=== PATIENT | female | born 1950 | race Caucasian/White ===

== ENCOUNTER → 2016-11-20 | Outpatient (CLI) | payer OTHER ==
[~2016-11-20] MED LIST: ACET-1256 PO; ACET-24 PO; BLAC160C PO; CALC500C70 PO; CITA10TA4 PO; CLR10 PO; CMD5 PO; ECHI1CAP11 PO; FLAX12003 PO; GOLD500C3 PO; HYDR25TA4 PO; LEVO75TA5 PO; LPR25 PO; MULT-506 PO; MULT1CAP52 PO; OMEG10007 PO; ONDA8TAB6 PO; PRLSR20 PO; RXC5 PO
== END | disposition home or self-care (01) ==
LOC: C.LABMFLN 07:58
PROVIDERS: ATTEND Family Medicine
DX: J20.9 Acute bronchitis, unspecified (principal)

== ENCOUNTER → 2016-12-18 | Outpatient (CLI) | payer OTHER ==
[2016-12-18 13:17] LABS: BASO % 0.2 %; BASO ABS # 0.01 K/uL (0-0.2); COMPLETE YES; EOS % 1.9 %; HEMATOCRIT 41.4 % (37-47); LYMPH % 31.9 %; LYMPH ABS # 1.32 K/uL (1.2-3.4); MEAN CELL VOLUME 97.4 fL (80-100); MEAN CORPUSCULAR HEMOGLOBIN 34.4 pg (25-34); MEAN CORPUSCULAR HGB CONC 35.3 g/dl (32-36); MEAN PLATELET VOLUME 10.1 fL (7.4-10.4); PLATELET COUNT 277 K/uL (130-400); RED BLOOD COUNT 4.25 M/uL (4.2-5.4); WHITE BLOOD COUNT 4.14 K/uL (4.8-10.8)
[2016-12-18 15:31] LABS: ALT/SGPT 18 U/L (12-78); AST/SGOT 13 U/L (15-37); BLOOD UREA NITROGEN 13 mg/dl (7-18); CALCIUM 9.4 mg/dl (8.5-10.1); CARBON DIOXIDE 31 mmol/L (21-32); CHLORIDE 100 mmol/L (98-107); CHOLESTEROL 190 mg/dl (0-200); CREATININE 0.67 mg/dl (0.60-1.20); GLUCOSE 86 mg/dl (70-99); POTASSIUM 3.7 mmol/L (3.5-5.1); SODIUM 139 mmol/L (136-145)
[2016-12-18 15:39] LABS: ALKALINE PHOSPHATASE 71 U/L (45-117); CHOLESTEROL/HDL RATIO 3.2; HDL CHOLESTEROL 60 mg/dl; LDL CHOLESTEROL CALCULATED 106 mg/dl; THYROID STIMULATING HORMONE 0.048 uIu/ml (0.300-4.500); TRIGLYCERIDES 118 mg/dl (0-150); VERY LOW DENSITY LIPOPROT CALC 24 mg/dl
== END | disposition home or self-care (01) ==
LOC: C.LABMFLN 10:43
PROVIDERS: ATTEND Family Medicine
DX: I10 Essential (primary) hypertension (principal); E03.9 Hypothyroidism, unspecified

== ENCOUNTER → 2017-02-12 | Outpatient (CLI) | payer OTHER ==
[2017-02-12 13:49] LABS: THYROID STIMULATING HORMONE 0.096 uIu/ml (0.300-4.500)
== END | disposition home or self-care (01) ==
LOC: C.LABMFLN 10:49
PROVIDERS: ATTEND Family Medicine
DX: E03.9 Hypothyroidism, unspecified (principal)

== ENCOUNTER → 2017-04-09 | Outpatient (CLI) | payer OTHER ==
[~2017-04-09] MED LIST changes: +FLAX100024 PO; +METO25TA56 PO; +OXYC-57 PO; +WARF2.5T8 PO; +WARF5TAB7 PO
[2017-04-09 13:51] LABS: THYROID STIMULATING HORMONE 0.731 uIu/ml (0.300-4.500)
== END | disposition home or self-care (01) ==
LOC: C.LABMFLN 14:07
PROVIDERS: ATTEND Family Medicine
DX: E03.9 Hypothyroidism, unspecified (principal)

== ENCOUNTER 2017-04-26 09:07 | Observation (INO) | payer OTHER ==
[~2017-04-26] VITALS: Ht 157.5 cm; Wt 80.9 kg
[~2017-04-26 09:07] MED LIST changes: -ACET-24 PO; -CMD5 PO; -FLAX100024 PO; -LPR25 PO; -METO25TA56 PO; -ONDA8TAB6 PO; -OXYC-57 PO; -RXC5 PO; -WARF2.5T8 PO; -WARF5TAB7 PO
[2017-04-26 09:51] LABS: BASO % 0.5 %; BASO ABS # 0.02 K/uL (0-0.2); COMPLETE YES; EOS % 2.7 %; HEMATOCRIT 40.1 % (37-47); LYMPH % 39.2 %; LYMPH ABS # 1.57 K/uL (1.2-3.4); MEAN CORPUSCULAR HEMOGLOBIN 34.2 pg (25-34); MEAN CORPUSCULAR HGB CONC 34.9 g/dl (32-36); MEAN PLATELET VOLUME 9.3 fL (7.4-10.4); MONO % 10.5 %; NEUT % 47.1 %; PLATELET COUNT 289 K/uL (130-400); RED BLOOD COUNT 4.09 M/uL (4.2-5.4); WHITE BLOOD COUNT 4.01 K/uL (4.8-10.8)
[2017-04-26 09:59] LABS: BUN/CREATININE RATIO 15.1 (10-20); CALCIUM 8.8 mg/dl (8.5-10.1); CREATININE 0.62 mg/dl (0.60-1.20); POTASSIUM 3.8 mmol/L (3.5-5.1)
[2017-04-26 10:02] LABS: ALB/GLOB RATIO 1.1 (0.9-2)
[2017-04-26] MEDS ORDERED: METOPROLOL TARTRATE 1 MG/ML VIAL IV STA (10:06)
--- NOTE | 2017-04-26 10:15 | EMERGENCY ROOM VISIT NOTE ---
History Report prepared by Nik: Erika Sands Under the Supervision of: Dr. Neno Scott M.D. First contact with patient: 09:58 Chief Complaint: CARDIAC ASSESSMENT Nursing Triage Summary: pt arrives from the OR. Pt was here to have a right shoulder surgery. Pt had preop EKG which showed sinus rhythm. Today, pt with no chest pain or symptoms, but the EKG showing Afib with RVR. Previous EKGs on the chart. Report received from Ana DE LA CRUZ. History of Present Illness The patient is a 67 year old female who presents to the Emergency Room with complaints of the sudden need for a cardiac assessment that began prior to arrival. The patient reports that she was preparing for a right shoulder replacement this morning when she had an EKG done. She reports that she noticed some slight palpitations, but denies any current palpitations. The patient notes that she was found to have an irregular heart rate and was sent to the emergency department for further work up. She denies any history of atrial fibrillation. The patient denies any fever, diaphoresis, shortness of breath, chest pain, nausea, vomiting, abdominal pain, or leg pain. She reports normal bowel movements and urination. The patient states that she stopped taking her Hydrochlorothiazide and Citalopram prior to her surgery, but states that she still took her Synthroid and Omeprazole today. She states that she took her calcium supplement and vitamins yesterday. The patient denies any recent new medications. She reports that she had a normal stress test last week. Source of History: patient Onset: prior to arrival Position: other (heart) Quality: other (cardiac assessment ) Timing: other (sudden) Associated Symptoms: No fevers, No diaphoresis, No chest pain, No SOB, No nausea, No vomiting, No abdominal pain, No urinary symptoms Review of Systems All systems have been listed, reviewed, and are negative other than those previously mentioned. Please see Additional Medical History Sheet. Past Medical & Surgical Medical Problems: (1) Arthritis (2) New onset atrial fibrillation (3) Sleep apnea Family History Cancer Heart disease Hypertension Social History Smoking Status: Former Smoker Smokeless Tobacco Use: No Alcohol Use: occasionally Marital Status: Housing Status: lives with significant other Occupation Status: retired Current/Historical Medications Scheduled Acetaminophen (Tylenol), 2 TAB PO Q6 Black Cohosh (Cimicifuga Racem (Black Cohosh), 1 CAP PO BID Calcium/Vitamin D (Os-Addison 500 Plus D), 1 TAB PO BID Citalopram Hydrobromide (Citalopram Hydrobromide), 5 MG PO HS Echinacea (Pa Echinacea 500 mg), 1 CAP PO BID Fish Oil ([place]-3), 1 CAP PO QAM Flaxseed (Linseed) (Flaxseed Oil), 1 CAP PO HS Goldenseal (Hydrastis Canadens (Coon Seal), 1 CAP PO BID Hydrochlorothiazide (Hctz), 25 MG PO QAM Levothyroxine Sodium (Levothyroxine Sodium), 1 TAB PO DAILYBB Loratadine (Claritin), 10 MG PO QAM Multiple Vitamins W/ Minerals (Hair/Skin/Nails), 1 CAP PO BID Multivitamin (Multivitamin), 1 TAB PO QAM Omeprazole (Prilosec), 20 MG PO DAILYBB Allergies Coded Allergies: Albuterol (Verified Allergy, Unknown, HIVES, 04/26/17) Azithromycin (Verified Allergy, Unknown, HIVES, 04/26/17) Cefuroxime (Verified Allergy, Unknown, HIVES, 04/26/17) Cephalexin (Verified Allergy, Unknown, HIVES, 04/26/17) Clarithromycin (Verified Allergy, Unknown, HIVES, 04/26/17) Oxaprozin (Verified Allergy, Unknown, HIVES, 04/26/17) Prednisone (Verified Allergy, Unknown, HIVES, 04/26/17) Sulfamethoxazole w/Trimethoprim (Verified Allergy, Unknown, HIVES, 04/26/17) Trovafloxacin (Verified Allergy, Unknown, HIVES, 04/26/17) Physical Exam Vital Signs Date Time Temp Pulse Resp B/P (MAP) Pulse Ox O2 Delivery O2 Flow Rate FiO2 04/26/17 13:09 65 16 120/80 95 Room Air 04/26/17 12:39 103 04/26/17 12:39 68 04/26/17 12:20 113 16 105/88 96 Room Air 04/26/17 11:07 123 16 123/97 97 Room Air 04/26/17 10:51 130 16 130/105 95 Room Air 04/26/17 10:35 118 16 127/89 97 Room Air 04/26/17 10:20 141 137/112 04/26/17 10:18 141 16 137/112 97 Room Air 04/26/17 09:54 147 04/26/17 09:17 135 04/26/17 09:13 36.7 139 19 148/106 95 Room Air 04/26/17 09:13 95 Room Air 04/26/17 09:13 95 Room Air Physical Exam GENERAL: Patient awake, alert, oriented x 3. Patient follows commands. Patient does not appear toxic. Patient is adequately hydrated and well- nourished. SKIN: No erythema, pallor, cyanosis or rash HEENT: Normal head, pupils equal, reactive to light and accommodation. Oral cavity and posterior pharynx appear normal. Neck: Without adenopathy, no neck vein distention. LUNGS: Clear to auscultation. No wheezes, no rales, no rhonchi. HEART: Rapid, irregularly irregular rate. ABDOMEN: No masses, no rebound, no hepatomegaly or splenomegaly. EXTREMITIES: No signs of trauma. No pedal or pretibial edema. No calf or thigh tenderness. NEUROLOGIC: Cranial nerves II-XII within normal limits. No gross motor sensory function deficits. Medical Decision & Procedures ER Provider Diagnostic Interpretation: X ray results are stated below per my interpretation and the radiologist's interpretation. SINGLE VIEW CHEST CLINICAL HISTORY: Atrial fibrillation. FINDINGS: An AP, portable, upright chest radiograph is compared to study dated 04/06/2017. The examination is degraded by portable technique and patient rotation. The heart is top normal for projection. The mediastinal contour is within normal limits. The pulmonary vasculature is noncongested. Chronic interstitial thickening is similar to previous. No airspace consolidation, large pleural effusion, or pneumothorax is seen. The skeletal structures are osteopenic. The bony thorax is grossly intact. IMPRESSION: No acute cardiopulmonary abnormality. Electronically signed by: Dionte Paz M.D. 04/26/2017 10:19 AM Dictated Date/Time: 04/26/2017 10:18 AM Laboratory Results 04/26/17 09:23 Red Blood Count 4.09, Mean Corpuscular Volume 98.0, Mean Corpuscular Hemoglobin 34.2, Mean Corpuscular Hemoglobin Concent 34.9, Mean Platelet Volume 9.3, Neutrophils (%) (Auto) 47.1, Lymphocytes (%) (Auto) 39.2, Monocytes (%) (Auto) 10.5, Eosinophils (%) (Auto) 2.7, Basophils (%) (Auto) 0.5, Neutrophils # (Auto ) 1.89, Lymphocytes # (Auto) 1.57, Monocytes # (Auto) 0.42, Eosinophils # (Auto ) 0.11, Basophils # (Auto) 0.02 04/26/17 09:23 Test 04/26/17 09:23 White Blood Count 4.01 K/uL (4.8-10.8) Red Blood Count 4.09 M/uL (4.2-5.4) Hemoglobin 14.0 g/dL (12.0-16.0) Hematocrit 40.1 % (37-47) Mean Corpuscular Volume 98.0 fL (80-100) Mean Corpuscular Hemoglobin 34.2 pg (25-34) Mean Corpuscular Hemoglobin Concent 34.9 g/dl (32-36) Platelet Count 289 K/uL (130-400) Mean Platelet Volume 9.3 fL (7.4-10.4) Neutrophils (%) (Auto) 47.1 % Lymphocytes (%) (Auto) 39.2 % Monocytes (%) (Auto) 10.5 % Eosinophils (%) (Auto) 2.7 % Basophils (%) (Auto) 0.5 % Neutrophils # (Auto) 1.89 K/uL (1.4-6.5) Lymphocytes # (Auto) 1.57 K/uL (1.2-3.4) Monocytes # (Auto) 0.42 K/uL (0.11-0.59) Eosinophils # (Auto) 0.11 K/uL (0-0.5) Basophils # (Auto) 0.02 K/uL (0-0.2) RDW Standard Deviation 45.4 fL (36.4-46.3) RDW Coefficient of Variation 12.6 % (11.5-14.5) Immature Granulocyte % (Auto) 0.0 % Immature Granulocyte # (Auto) 0.00 K/uL (0.00-0.02) Prothrombin Time 10.4 SECONDS (9.0-12.0) Prothromb Time International Ratio 1.0 (0.9-1.1) Activated Partial Thromboplast Time 27.0 SECONDS (21.0-31.0) Partial Thromboplastin Ratio 1.0 Anion Gap 8.0 mmol/L (3-11) Est Creatinine Clear Calc Drug Dose 88.0 ml/min Estimated GFR () 108.1 Estimated GFR (Non- 93.3 BUN/Creatinine Ratio 15.1 (10-20) Calcium Level 8.8 mg/dl (8.5-10.1) Magnesium Level 2.2 mg/dl (1.8-2.4) Total Bilirubin 0.9 mg/dl (0.2-1) Aspartate Amino Transf (AST/SGOT) 14 U/L (15-37) Alanine Aminotransferase (ALT/SGPT) 19 U/L (12-78) Alkaline Phosphatase 71 U/L (45-117) Troponin I < 0.015 ng/ml (0-0.045) Total Protein 6.9 gm/dl (6.4-8.2) Albumin 3.6 gm/dl (3.4-5.0) Globulin 3.3 gm/dl (2.5-4.0) Albumin/Globulin Ratio 1.1 (0.9-2) Thyroid Stimulating Hormone (TSH) 1.040 uIu/ml (0.300-4.500) Laboratory results as stated above per my review. Medications Administered Medications (Trade) Dose Ordered Sig/Ben Route Start Time Stop Time Status Last Admin Dose Admin Metoprolol Tartrate (Lopressor Iv) 15 mg NOW STAT IV 04/26/17 10:06 04/26/17 10:08 DC 04/26/17 10:20 5 MG Metoprolol Tartrate (Lopressor Tab) 50 mg NOW STAT PO 04/26/17 11:14 04/26/17 11:16 DC 04/26/17 11:20 50 MG Potassium Chloride (Klor-Con M10) 20 meq NOW STAT PO 04/26/17 12:42 04/26/17 12:54 DC 04/26/17 13:06 20 MEQ ECG Indication: palpitations Rate (beats per minute): 147 Rhythm: atrial fibrillation Findings: nonspecific-ST abn, other (normal axis) ED Course 0959: Past medical records reviewed. The patient was evaluated in room A2. A complete history and physical examination was performed. 1006: Ordered Lopressor IV 15 mg IV. 1114: Per nursing staff, the patients heart rate still has not converted. Ordered Lopressor Tab 50 mg PO. 1141: I reevaluated the patient and she is resting comfortably. I discussed the exam findings with her and I discussed the treatment plan. She verbalized complete understanding and agreement. She will be evaluated for further treatment. 1143: I discussed the patients case with SHU Barrientos. He is going to evaluate the patient for further treatment. 1249: Per nursing staff the patient has converted and her heart rate is 66 beats per minute. 1257: I reevaluated the patient and her heart rate has converted to normal sinus with a rate of 66 beats per minute. Awaiting consult from SHU Barrientos to talk about any possible changes. Medical Decision Nurses notes reviewed. Medical history sheet reviewed. Differential diagnosis includes but is not limited to: atrial fibrillation with RVR, PVC, PAC, metabolic disorder. Medication Reconciliation: I attest that I have personally reviewed the patient' s current medication list. Blood Pressure Screening: Patient was found to have an elevated blood pressure but her blood pressure came down after treatment of the atrial fibrillation. The patient arrived here from preop with atrial fibrillation. She denies having this problem before. The patient was given 3 doses of IV metoprolol followed by 1 dose of oral metoprolol. The patient's labs were all evaluated. Please see above. The patient did eventually convert to a normal sinus rhythm. The case was discussed with the hospitalist. I also discussed care with the patient and with her . Consults Time Called: 1116 Consulting Physician: SHU Barrientos Returned Call: 1143 I discussed the patients case with SHU Barrientos. He is going to evaluate the patient for further treatment. Impression Primary Impression: Atrial fibrillation with rapid ventricular response Critical Care I have personally spent greater than 35 minutes of critical care time in the direct management of this patient. This includes bedside care, interpretation of diagnostic studies, and testing, discussion with consultants, patient, and family members, and other required patient management activities. This 35 minutes is in excess of all separately billable procedures. Scribe Attestation The scribe's documentation has been prepared under my direction and personally reviewed by me in its entirety. I confirm that the note above accurately reflects all work, treatment, procedures, and medical decision making performed by me. Departure Information Dispostion Being Evaluated By Hospitalist Referrals Omayra Lane M.D. (PCP)
--- NOTE | 2017-04-26 10:21 | DIAGNOSTIC IMAGING REPORT ---
SINGLE VIEW CHEST CLINICAL HISTORY: Atrial fibrillation. FINDINGS: An AP, portable, upright chest radiograph is compared to study dated 04/06/2017. The examination is degraded by portable technique and patient rotation. The heart is top normal for projection. The mediastinal contour is within normal limits. The pulmonary vasculature is noncongested. Chronic interstitial thickening is similar to previous. No airspace consolidation, large pleural effusion, or pneumothorax is seen. The skeletal structures are osteopenic. The bony thorax is grossly intact. IMPRESSION: No acute cardiopulmonary abnormality. Electronically signed by: Dionte Paz M.D. 04/26/2017 10:19 AM Dictated Date/Time: 04/26/2017 10:18 AM
[2017-04-26 10:24] LABS: PROTHROMBIN TIME (PATIENT) 10.4 SECONDS (9.0-12.0)
[2017-04-26] MEDS ORDERED: METOPROLOL TARTRATE 50 MG TAB PO STA (11:14)
[2017-04-26] MEDS ORDERED: ZOLPIDEM TARTRATE 5 MG TAB PO PRN (12:30)
[2017-04-26] MEDS ORDERED: NITROGLYCERIN 0.4 MG SL PER TAB CHARGE SL PRN (12:30)
[2017-04-26] MEDS ORDERED: POTASSIUM CHLORIDE 10 MEQ TABCR PO STA (12:42)
[2017-04-26] MEDS ORDERED: METOPROLOL TARTRATE 1 MG/ML VIAL IV PRN (12:45)
[2017-04-26 13:45] VITALS: BP 115/79; PULSE 65; TEMP 36.6; O2SAT 98; Ht 157.5 cm; Wt 80.9 kg
[2017-04-26] MEDS ORDERED: IV FLUIDS COMPLETED PRN (13:45)
[2017-04-26] MEDS: ACETAMINOPHEN 325 MG TAB PO PRN ×2 (15:31→23:25)
[2017-04-26 15:33] VITALS: BP 132/90; PULSE 63; TEMP 36.8; O2SAT 98
[2017-04-26 16:00] VITALS: O2SAT 98
--- NOTE | 2017-04-26 16:05 | CARDIOLOGY CONSULTATION ---
DATE OF CONSULTATION: 04/26/2017 DATE OF CONSULTATION: 04/26/2017. REFERRING PHYSICIAN: Austin Peck. CHIEF COMPLAINT: Atrial fibrillation. HISTORY OF PRESENT ILLNESS: Mrs. Chandni Porter is a s 67-year-old woman without a known cardiac history who presented today for a right should shoulder surgery and was discovered to have a rapid heart rate. An EKG was obtained, she was noted to have rapid atrial fibrillation. She was admitted to the hospital for treatment. The patient states in general, she has been feeling quite well. During her initial evaluation this morning, she did go to the bathroom and feel a very slight tachycardia, but this resolved quite clinically when she returned for the remainder of her intake examination. She otherwise has not noticed a sense of rapid heartbeat or palpitation. She denies significant chest pressure or discomfort. She has not noticed any change in her breathing pattern. She denies significant dyspnea. She has no lightheadedness, dizziness or other symptoms associated with the arrhythmia. In general, she is an active individual who is limited to some degree by orthopedic disease. She is able to ambulate and perform routine activity without significant limitation such as breathing difficulty or chest pain. Once again, she denies frequency symptoms of dizziness or lightheadedness. She has no sense of palpitations. She has not reported any undue fatigue recently. The patient did undergo exercise echocardiography in the recent past for preoperative evaluation. She was able to go 6 minutes on a standard treadmill test and did report some difficulty with running due to her footwear at the time, but denied significant limiting dyspnea. She states that occasionally when playing with her grandchildren she will have mild shortness of breath. She denies significant orthopnea or paroxysmal nocturnal dyspnea. PAST MEDICAL HISTORY: Significant for: 1. Orthopedic disease. 2. Allergic rhinitis. 3. Gastroesophageal reflux disease. 4. Hypertension. 5. Hypothyroidism. 6. Reported sleep apnea which may in fact have been narcolepsy. PAST SURGICAL HISTORY: Includes back surgery x4 and a knee arthroscopy. OUTPATIENT MEDICATIONS: Included calcium, citalopram, fexofenadine on a p.r.n. basis, hydrochlorothiazide and omeprazole. MEDICAL ALLERGIES: INCLUDE ALBUTEROL, AZITHROMYCIN, CEFUROXIME, CEPHALEXIN, CLARITHROMYCIN, OXAPROZIN, PREDNISONE, SULFAMETHIZOLE WITH TRIMETHOPRIM, DAYPRO AND TROVAN. FAMILY HISTORY: Family history is not significant for premature coronary disease. SOCIAL HISTORY: The patient currently lives with her . She has a very remote history of a very light tobacco use. She denies significant alcohol abuse. REVIEW OF SYSTEMS: A complete review of systems was performed and the pertinent positives are noted in the history of present illness, the remainder being negative. PHYSICAL EXAMINATION: GENERAL: The patient does not appear in acute distress. She was alert and oriented. Mood and affect appeared normal. She answered all questions appropriately. VITAL SIGNS: Include blood pressure 120/80 with pulse of 65. HEAD, EYES, EARS, NOSE, AND THROAT: Her sclerae are anicteric. Pupils are equal, reactive to light and accommodation. Extraocular movements were intact. Palpation of submandibular region did not reveal any significant lymphadenopathy. The carotids are palpable bilaterally. I do not appreciate any bruits on auscultation. Cranial nerves appear to be intact. There is no evidence of jugular venous distention. Thyroid is not enlarged. LUNGS: Auscultation of both lung bueno remain clear. There were no rales, wheezes or rhonchi. She had good respiratory effort without use of accessory muscles. CARDIAC EXAMINATION: Revealed her to be in a regular rhythm. S1 and S2 appear to be normal. There were no murmurs on exam. PMI was not markedly displaced on palpation. ABDOMEN: Soft and nontender. EXTREMITIES: Evaluation of both wrists revealed radial pulses that were equal in intensity, I do not appreciate any cyanosis or clubbing. Evaluation of lower extremities did not reveal any significant peripheral edema. SKIN: I do not appreciate any rashes on examination today. LABORATORY STUDIES: Included a white cell count of 4, hemoglobin of 14, a platelet count of 289. Sodium is 142, potassium is 3.8, BUN was 9, creatinine was 0.62. Cardiac troponin was less than detectable limit. A 12-lead EKG was obtained in the Emergency Room. This revealed the patient to be in atrial fibrillation with rapid ventricular response. Review of the patient's telemetry reveals a spontaneously conversion to normal sinus rhythm. Single view chest x-ray was also obtained today which revealed the patient to have no acute cardiopulmonary findings. I reviewed the patient's outpatient records, which included her stress echocardiogram dated 04/18/2017. This was felt to be a low risk study. The preliminary images revealed normal LV systolic function with mild concentric hypertrophy, and mild mitral regurgitation. IMPRESSION: 1. Paroxysmal atrial fibrillation. The patient appeared to be entirely asymptomatic relative to this arrhythmia. This leads to the question of whether she is having paroxysmal at other times just diagnosed today. This particular episode is also of unclear duration. She did have rather ventricular rates and given the absence of symptoms associated with the arrhythmia a rate control strategy would be most appropriate in her case. She has been started on a beta segundo and this can be continued in the hopes of providing better rate control periods of atrial fibrillation. The etiology of her atrial fibrillation is likely related to her age and history of hypertension. She states that she had obstructive sleep apnea but her chart suggests she may in fact have had narcolepsy. She never used CPAP and was treated with a pill which makes the latter diagnosis more likely. She does not appear to have significant left atrial enlargement on her echocardiogram. Regardless, her CHADS2-VASc score is 3 given her age, gender and history of hypertension. As such, she would be advised to initiate systemic anticoagulation indefinitely. I did discuss with her the options for anticoagulation. She is most in favor of warfarin is her is currently taking his medication for the same diagnosis Initiation of anticoagulation could be deferred if her surgery is to be rescheduled in the next few days. I do not believe there is much advantage to parenteral anticoagulation in the short term given the relatively low risk of stroke on a day-to-day basis. If her orthopedic surgery is postponed for several weeks then initiation of systemic anticoagulation ,probably of warfarin, is indicated at this time. 3. Mitral regurgitation. This is mild and can be followed longitudinally. 4. Borderline left ventricular hypertrophy. This is likely related to longstanding history of hypertension. Addition of a beta segundo should be beneficial in this setting. MARYJANED
--- NOTE | 2017-04-26 16:16 | ECHOCARDIOGRAM REPORT ---
*NOTICE TO RECEIVING REPUBLICAN AGENCY This information is strictly Confidential and protected under [place] law. [place] law prohibits you from making any further disclosure of this information unless further disclosure is expressly permitted by the written consent of the person to whom it pertains or is authorized by law. A general authorization for the release of medical or other information is not sufficient for this purpose. Hospital accepts no responsibility if the information is made available to any other person, INCLUDING THE PATIENT. Interpretation Summary * Name: ANCA BONDS Study Date: 04/26/2017 02:51 PM BP: 120/80 mmHg * Patient Location: S237 HR: 69 * : 1950 (M/d/yyyy) Gender: Female Height: 62 in * Age: 67 yrs Ethnicity: CA Weight: 183 lb * Ordering Physician: Austin Peck * Referring Physician: Rigo Delacruz * Performed By: Ansley Saldana RCS * * Reason For Study: A-FIB * BSA: 1.8 m2 * -- Conclusions -- * Left ventricular systolic function is normal. * There is mild mitral regurgitation. * Right ventricular systolic pressure is normal. * Compared to a study performed 8 days ago, no change. Procedure Details * A complete two-dimensional transthoracic echocardiogram was performed (2D, M-mode, Doppler and color flow Doppler). Left Ventricle * The left ventricle is normal in size. * There is normal left ventricular wall thickness. * The basal septum is thickened and angulated consistent with sigmoid septum. * Left ventricular systolic function is normal. * Ejection Fraction = 55-60%. Right Ventricle * The right ventricle is normal in size and function. Atria * The left atrial size is normal. * Right atrial size is normal. Mitral Valve * The mitral valve anatomy is normal. * There is mild mitral regurgitation. Tricuspid Valve * The tricuspid valve is not well visualized, but is grossly normal. * There is mild tricuspid regurgitation. * Right ventricular systolic pressure is normal. Aortic Valve * The aortic valve is normal in structure and function. * The aortic valve is trileaflet. * No hemodynamically significant valvular aortic stenosis. * Trace aortic regurgitation. Great Vessels * The aortic root is normal size. Pericardium/Pleural * There is no pericardial effusion. MMode 2D Measurements and Calculations IVSd 1.1 cm IVSs 1.2 cm LVIDd 4.3 cm LVIDs 3.2 cm LVPWd 0.89 cm LVPWs 1.2 cm IVS/LVPW 1.2 FS 26.1 % EDV(Teich) 81.6 ml ESV(Teich) 39.6 ml EF(Teich) 51.5 % EDV(cubed) 77.8 ml ESV(cubed) 31.4 ml EF(cubed) 59.6 % % IVS thick 9.8 % % LVPW thick 37.3 % LV mass(C)d 139.7 grams LV mass(C)dI 75.9 grams/m\S\2 LV mass(C)s 119.3 grams LV mass(C)sI 64.8 grams/m\S\2 SV(Teich) 42.0 ml SI(Teich) 22.8 ml/m\S\2 SV(cubed) 46.3 ml SI(cubed) 25.2 ml/m\S\2 Ao root diam 3.1 cm Ao root area 7.5 cm\S\2 LA dimension 2.5 cm LA/Ao 0.82 LVOT diam 2.0 cm LVOT area 3.1 cm\S\2 LVAd ap4 28.0 cm\S\2 LVLd ap4 7.3 cm EDV(MOD-sp4) 86.9 ml EDV(sp4-el) 91.2 ml LVAs ap4 18.2 cm\S\2 LVLs ap4 6.1 cm ESV(MOD-sp4) 44.1 ml ESV(sp4-el) 45.6 ml EF(MOD-sp4) 49.2 % EF(sp4-el) 50.0 % LVAd ap2 28.6 cm\S\2 LVLd ap2 7.5 cm EDV(MOD-sp2) 89.9 ml EDV(sp2-el) 93.0 ml LVAs ap2 18.7 cm\S\2 LVLs ap2 6.3 cm ESV(MOD-sp2) 47.5 ml ESV(sp2-el) 47.5 ml EF(MOD-sp2) 47.1 % EF(sp2-el) 48.9 % LVLd %diff 2.4 % EDV(MOD-bp) 89.1 ml LVLs %diff 2.0 % ESV(MOD-bp) 45.3 ml EF(MOD-bp) 49.2 % SV(MOD-sp4) 42.8 ml SI(MOD-sp4) 23.2 ml/m\S\2 SV(MOD-sp2) 42.4 ml SI(MOD-sp2) 23.0 ml/m\S\2 SV(MOD-bp) 43.8 ml SI(MOD-bp) 23.8 ml/m\S\2 SV(sp4-el) 45.6 ml SI(sp4-el) 24.8 ml/m\S\2 SV(sp2-el) 45.5 ml SI(sp2-el) 24.7 ml/m\S\2 Doppler Measurements and Calculations MV E max cristino 83.0 cm/sec MV A max cristino 71.2 cm/sec MV E/A 1.2 MV P1/2t max cristino 96.5 cm/sec MV P1/2t 92.2 msec MVA(P1/2t) 2.4 cm\S\2 MV dec slope 306.6 cm/sec\S\2 MV dec time 0.31 sec Ao V2 max 130.7 cm/sec Ao max PG 6.8 mmHg Ao max PG (full) 3.1 mmHg JOSE(V,A) 2.3 cm\S\2 JOSE(V,D) 2.3 cm\S\2 AI max cristino 388.4 cm/sec AI max PG 60.3 mmHg AI dec slope 153.0 cm/sec\S\2 AI P1/2t 743.7 msec LV V1 max PG 3.7 mmHg LV V1 max 96.0 cm/sec MR max cristino 413.1 cm/sec MR max PG 68.3 mmHg PA V2 max 62.4 cm/sec PA max PG 1.6 mmHg TR max cristino 215.7 cm/sec
[2017-04-26 19:27] VITALS: BP 123/79; PULSE 64; TEMP 36.7; O2SAT 94
[2017-04-26 20:00] VITALS: O2SAT 95
[2017-04-26] MEDS: CALCIUM 600MG + VIT D 400 IU TAB PO SCH (20:20)
[2017-04-26] MEDS: METOPROLOL TARTRATE 25 MG TAB PO SCH (20:22)
[2017-04-26] MEDS ORDERED: CITALOPRAM 20 MG TAB PO SCH (21:00)
[2017-04-26] MEDS ORDERED: METOPROLOL TARTRATE 50 MG TAB PO SCH (21:00)
[2017-04-27] VITALS (8 sets, daily range): BP systolic 125–147; BP diastolic 80–92; PULSE 55–61; TEMP 36.5–36.9; O2SAT 95–99
[2017-04-27] MEDS ORDERED: LEVOTHYROXINE 75 MCG TAB PO SCH (06:00)
[2017-04-27] MEDS ORDERED: MULTIVITAMIN TAB PO SCH (09:00)
[2017-04-27] MEDS ORDERED: LORATADINE 10 MG TAB PO SCH (09:00)
[2017-04-27] MEDS ORDERED: OMEGA-3 (PURIFIED FISH OIL) 1 GM CAP PO SCH (09:00)
[2017-04-27] MEDS ORDERED: PANTOprazole SOD 40 MG TAB PO SCH (09:00)
[2017-04-27] MEDS: ACETAMINOPHEN 325 MG TAB PO PRN ×2 (09:13→14:14)
[2017-04-27] MEDS: CALCIUM 600MG + VIT D 400 IU TAB PO SCH (09:13)
[2017-04-27] MEDS: METOPROLOL TARTRATE 25 MG TAB PO SCH (09:15)
[2017-04-27] MEDS ORDERED: LPR25 PO (15:13)
--- NOTE | 2017-04-27 15:13 | Discharge Instructions ---
Discharge Instructions Date of Service Apr 27, 2017. Admission Reason for Admission: Atrial Fibrillation With Rvr Discharge Discharge Diagnosis / Problem: afib Discharge Goals Goal(s): Decrease discomfort, Improve function, Increase independence, Improve disease control, Improve nutritional status, Learn about illness, Diagnostic testing, Therapeutic intervention, Prevent Disease Progression, Specific goals Activity Recommendations Activity Limitations: resume your previous activity . 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 you have Paroxysmal atrial fibrillation. you are in risks of stoke, recommend warfarin as soon as possible if agreed with surgeon The blow molding machine operator saw you is Dr. Smith, I would recommend you to continue to see him, call his office to get appointment - you need to follow up with your primary care physician in 1 week, - take medication as instructed, never overdose or any misuse, or take with alcohol, because misuse of medicine may cause organ damage or , call your primary care physician if have questions of medicaitons. - call your primary care physician OR go to local emergency room if has any fever/chill, chest pain, shortness of breathing, nausea/vomiting/abdominal pain , facial droop/slurry speech/local weakness, or if has any questions. - fall precaution - diet as instructed - you need to follow up with your subspecialist - you should understand that it is important to follow up the above instruction , and "not following the above instruction" may cause delayed or missed care of your medical conditions which may cause permanent organ damage and even . Current Hospital Diet Patient's current hospital diet: Regular Diet Discharge Diet Recommended Diet: AHA Diet (Heart Healthy) Procedures Procedures Performed: no Pending Studies Studies pending at discharge: no Laboratory Results Hemoglobin A1c Test 04/06/17 11:35 Range/Units Estimated Average Glucose 100 mg/dl Hemoglobin A1c 5.1 4.5-5.6 % Medical Emergencies . Who to Call and When: Medical Emergencies: If at any time you feel your situation is an emergency, please call 911 immediately. . Non-Emergent Contact Non-Emergency issues call your: Primary Care Provider, Senior Business Analyst . . "Provider Documentation" section prepared by Devin Minor. . VTE Core Measure Inpt VTE Proph given/why not?: SCD's
--- NOTE | 2017-04-27 16:49 | Discharge Summary ---
Discharge Summary Date of Service Apr 27, 2017. 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 Hospital Course 67 year old female admitted because of new onset of A. fib on 04/26/2017 Patient presents to the Emergency Room with complaints of the sudden need for a cardiac assessment that began prior to arrival. she was preparing for a right shoulder replacement this morning when she had an EKG done. noticed some slight palpitations, but denies any current palpitations when she was in the emergency room. The patient notes that she was found to have an irregular heart rate and was sent to the emergency department for further work up. She denies any history of atrial fibrillation. History of hypertension Hypothyroidism Patient was kept in the observation unit, cardiology see patient, roofer assistant was not remarkable, troponin was negative, TSH was normal, echo was done , per report: * The left ventricle is normal in size. * There is normal left ventricular wall thickness. * The basal septum is thickened and angulated consistent with sigmoid septum. * Left ventricular systolic function is normal. * Ejection Fraction = 55-60%. Cardiology saw patient,feel patient is asymptomatic relative to this arrhythmia. This leads to the question of whether she is having paroxysmal at other times just diagnosed today. hx of bstructive sleep apnea but her chart suggests she may in fact have had narcolepsy. her CHADS2-VASc score is 3 given her age, gender and history of hypertension. As such, she would be advised to initiate systemic anticoagulation indefinitely. I did discuss with her the options for anticoagulation, she like warfarin is currently taking his medication for the same diagnosis . Discussed the risk and benefit, and include start anticoagulation as soon as possible . If her orthopedic surgery is postponed for several weeks then initiation of systemic anticoagulation ,probably of warfarin, is indicated at this time. I emphasized this with patient and again, patient understand and risk, and will night to talk to surgeon and family doctor, I mentioned she can talk to cardiology as well. Patient do not want to start any anticoagulation in the hospital and was brought her to go home and follow-up with PCP and talk to orthopedic surgeon, and she willing to take all the risks. 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 you have Paroxysmal atrial fibrillation. you are in risks of stoke, recommend warfarin as soon as possible if agreed with surgeon The pecan gatherer saw you is Dr. Smith, I would recommend you to continue to see him, call his office to get appointment - you need to follow up with your primary care physician in 1 week, - take medication as instructed, never overdose or any misuse, or take with alcohol, because misuse of medicine may cause organ damage or , call your primary care physician if have questions of medicaitons. - call your primary care physician OR go to local emergency room if has any fever/chill, chest pain, shortness of breathing, nausea/vomiting/abdominal pain , facial droop/slurry speech/local weakness, or if has any questions. - fall precaution - diet as instructed - you need to follow up with your subspecialist - you should understand that it is important to follow up the above instruction , and "not following the above instruction" may cause delayed or missed care of your medical conditions which may cause permanent organ damage and even . Total Time Spent: Less than 30 minutes This includes examination of the patient, discharge planning, medication reconciliation, and communication with other providers. Discharge Instructions Please refer to the electronic Patient Visit Report (Discharge Instructions) for additional information. Additional Copies To John Smith MD; Omayra Lane M.D.
--- NOTE | 2017-05-01 22:32 | History and Physical ---
History & Physical Date & Time of Service: May 01, 2017 at 22:19. The patient was seen and examined and H&P was first dictated on 04/26/2017. This is the second dictation. Chief Complaint: Atrial Fibrillation With Rvr Primary Care Physician: Omayra Lane M.D. History of Present Illness Source: patient The patient is a 67-year-old female who presents to the emergency department after being noted to be in atrial fibrillation with rapid ventricular response when she presented to same day surgery for a right shoulder arthroplasty scheduled for today. She has in the past noted some palpitations that were not bothersome to her and were self-limited. She has never been diagnosed with any heart rate abnormality. The patient did take her medications as directed before surgery including Synthroid and omeprazole. Her HCTZ and citalopram were held. Past Medical/Surgical History Medical Problems: (1) Arthritis Status: Chronic (2) Sleep apnea Status: Chronic Family History Cancer Heart disease Hypertension Social History Smoking Status: Never Smoker Smokeless Tobacco Use: No Alcohol Use: none Drug Use: none Marital Status: Housing status: lives with family Occupational Status: retired Multi-Drug Resistant Organisms History of MDRO: No Allergies Coded Allergies: Albuterol (Verified Allergy, Unknown, HIVES, 04/26/17) Azithromycin (Verified Allergy, Unknown, HIVES, 04/26/17) Cefuroxime (Verified Allergy, Unknown, HIVES, 04/26/17) Cephalexin (Verified Allergy, Unknown, HIVES, 04/26/17) Clarithromycin (Verified Allergy, Unknown, HIVES, 04/26/17) Oxaprozin (Verified Allergy, Unknown, HIVES, 04/26/17) Prednisone (Verified Allergy, Unknown, HIVES, 04/26/17) Sulfamethoxazole w/Trimethoprim (Verified Allergy, Unknown, HIVES, 04/26/17) Trovafloxacin (Verified Allergy, Unknown, HIVES, 04/26/17) Home Medications Scheduled Acetaminophen (Tylenol), 2 TAB PO Q6 Black Cohosh (Cimicifuga Racem (Black Cohosh), 1 CAP PO BID Calcium/Vitamin D (Os-Addison 500 Plus D), 1 TAB PO BID Citalopram Hydrobromide (Citalopram Hydrobromide), 5 MG PO HS Echinacea (Pa Echinacea 500 mg), 1 CAP PO BID Fish Oil ([place]-3), 1 CAP PO QAM Flaxseed (Linseed) (Flaxseed Oil), 1 CAP PO HS Goldenseal (Hydrastis [place] (Coon Seal), 1 CAP PO BID Hydrochlorothiazide (Hctz), 25 MG PO QAM Levothyroxine Sodium (Levothyroxine Sodium), 1 TAB PO DAILYBB Loratadine (Claritin), 10 MG PO QAM Metoprolol Tartrate (Lopressor), 25 MG PO BID Multiple Vitamins W/ Minerals (Hair/Skin/Nails), 1 CAP PO BID Multivitamin (Multivitamin), 1 TAB PO QAM Omeprazole (Prilosec), 20 MG PO DAILYBB Review of Systems The patient denies chest pain, shortness of breath, cough, lower extremity swelling, sore throat, fevers, chills, sweats, weight change, fatigue, nausea, vomiting, abdominal pain, pelvic pain, blood in urine or stool, dysuria, urinary frequency or urgency, lightheadedness, dizziness, headache, memory loss , rash, abnormal bruising or bleeding, imbalance, generalized weakness, numbness or tingling in arms or legs, arthralgias or myalgias, night sweats, or allergy symptoms. The review of systems is otherwise negative other than for that already noted above, and at least 10 systems have been reviewed. Physical Exam The patient is awake, well-developed and adequately nourished, alert and oriented 3, normocephalic and atraumatic, lying in bed and in no acute distress. HEENT--PERRL, EOMI, mucous membranes and oropharynx normal. Neck--supple, no JVD or bruits, thyroid normal, trachea midline, no adenopathy. Heart--irregularly irregular and tachycardic, no murmurs, rubs or gallops. Lungs--clear bilaterally with good air movement, no respiratory distress, no accessory muscle use. Abdomen--normal bowel sounds and soft, nontender and nondistended, no hernias or masses, no organomegaly. Extremities--no cyanosis, clubbing or edema. There are good distal pulses b/l. Dermatologic--normal skin turgor, normal color, warm and dry, no abnormal lymph nodes, no rash. Neurologic--cranial nerves II through XII grossly intact, motor and sensory examination normal. Rheumatologic--normal range of motion except for right shoulder. Psychiatric--normal affect. Diagnostics Diagnostic Radiology Patient Name: ANCA BONDS Unit Number: [id number] Dictated: 04/26/171017 Transcribed: 04/26/171017 EV Printed Date/Time: [~ rep prt dt]/[~ rep prt tm] [~ rep ct labl] - [~ rep ct ivnm] [facility] Radiology Department [place] [id number] Dictated: 04/26/171017 Transcribed: 04/26/17 1018 EV Printed Date/Time: [~ rep prt dt]/[~ rep prt tm] [~ rep ct labl] - [~ rep ct ivnm] SINGLE VIEW CHEST CLINICAL HISTORY: Atrial fibrillation. FINDINGS: An AP, portable, upright chest radiograph is compared to study dated 04/06/2017. The examination is degraded by portable technique and patient rotation. The heart is top normal for projection. The mediastinal contour is within normal limits. The pulmonary vasculature is noncongested. Chronic interstitial thickening is similar to previous. No airspace consolidation, large pleural effusion, or pneumothorax is seen. The skeletal structures are osteopenic. The bony thorax is grossly intact. IMPRESSION: No acute cardiopulmonary abnormality. Electronically signed by: Dionte Paz M.D. 04/26/2017 10:19 AM Dictated Date/Time: 04/26/2017 10:18 AM The status of this report is Signed. Draft = Not yet reviewed or approved by Radiologist. Signed = Reviewed and approved by Radiologist. <AttendingPhy></AttendingPhy> <FamilyPhy>Omayra Lane M.D.</FamilyPhy> < PrimaryPhy>Omayra Lane M.D.</PrimaryPhy> <UnitNumber>[id number]</ UnitNumber> <VisitNumber>[id number]</VisitNumber> <PatientName>ANCA BONDS</ PatientName> <DateOfBirth>1950</DateOfBirth> <Location>[facility]</Location> < ServiceDate>04/26/17</ServiceDate> <MNE>ESINDI</MNE> <OrderingPhy>Neno Scott M.D.</OrderingPhy> <OrderingPhyMNE>f rep ord dr reyes</OrderingPhyMNE> < DictatingPhyMNE>f rep dict dr reyes</DictatingPhyMNE> <CCListMNE>f rep ct mne</ CCListMNE> <AdmittingPhyMNE>f pt admit dr reyes</AdmittingPhyMNE> <AttendingPhyMNE >f pt attend dr reyes</AttendingPhyMNE> <ConsultingPhyMNE>f pt consult dr reyes</ConsultingPhyMNE> <FamilyPhyMNE>f pt fam dr reyes</FamilyPhyMNE> <OtherPhyMNE>f pt other dr reyes</OtherPhyMNE> < PrimaryPhyMNE>f pt prim care dr reyes</PrimaryPhyMNE> <ReferringPhyMNE>f pt referring dr reyes</ReferringPhyMNE> EKG EKG shows atrial fibrillation with rapid ventricular response at 143 bpm, nonspecific ST-T changes. Impression Assessment and Plan New onset atrial fibrillation with rapid ventricular response--the patient was given 5 mg IV Lopressor and 50 mg oral Lopressor in the emergency department. She'll be admitted to the telemetry unit for serial cardiac enzymes, cardiac rhythm monitoring and a 2-D echocardiogram with Dopplers. She was started on metoprolol tartrate 25 mg by mouth twice a day with hold parameters. She was started on heparin IV standard dose no bolus. We'll give potassium chloride 20 mEq by mouth now. We'll consult cardiology. Hypothyroidism--continue levothyroxine sodium at 75 g by mouth daily with breakfast. Seasonal allergy--continue loratadine 10 mg by mouth every morning. Level of Care Telemetry Advanced Directives Existing Advance Directive: No Existing Living Will: No Existing Power of Manager Sign: No Resuscitation Status FULL RESUSCITATION VTE Prophylaxis VTE Risk Assessment Done? Y/N: Yes Risk Level: Moderate Given or contraindicated: SCD's Social Service Consult None Apply
[2017-09-12] MEDS ORDERED: FLAX100024 PO (16:18)
[2017-09-12] MEDS ORDERED: OMEG10007 PO (16:18)
[2017-09-12] MEDS ORDERED: ACET-1256 PO (16:41)
[2017-09-12] MEDS ORDERED: WARF2.5T8 PO (16:41)
[2017-09-12] MEDS ORDERED: METO25TA56 PO (16:41)
[2017-09-12] MEDS ORDERED: WARF5TAB7 PO (16:41)
[2017-09-28] MEDS ORDERED: OXYC-57 PO (13:06)
== END 2017-04-27 16:22 | disposition home or self-care (01) ==
LOC: EDBD 09:07 → C.EDA 09:09 → C.2T 12:30 → UNDOADMOB 12:30 → INTOOBSV 12:30 → ENRESERV 12:54 → EDBEDREQ 13:18 → C.2T 13:18
PROVIDERS: ADMIT Hospitalist; ATTEND Hospitalist
DX: I48.0 Paroxysmal atrial fibrillation (principal); M19.011 Primary osteoarthritis, right shoulder; E03.9 Hypothyroidism, unspecified; I10 Essential (primary) hypertension; G47.30 Sleep apnea, unspecified; K21.9 Gastro-esophageal reflux disease without esophagitis; Z87.891 Personal history of nicotine dependence; Z82.49 Family history of ischemic heart disease and other diseases of the circulatory system; Z79.899 Other long term (current) drug therapy; Z53.8 Procedure and treatment not carried out for other reasons

== ENCOUNTER 2017-05-02 09:49 | Inpatient (IN) | payer OTHER ==
--- NOTE | 2017-04-25 18:59 | HISTORY & PHYSICAL EXAMINATION ---
DATE OF ADMISSION: 05/02/2017 CHIEF COMPLAINT: Chronic right shoulder pain. HISTORY OF PRESENT ILLNESS: This is a 67-year-old female patient of Dr. Delacruz, who is complaining of chronic right shoulder pain and weakness. She has failed conservative treatment. She has been diagnosed with end-stage osteoarthritis per clinical and radiographic exam. She has also been diagnosed with a insufficient rotator cuff. At this point in time, she wished to proceed with a right reversed total shoulder arthroplasty. PAST MEDICAL HISTORY: Hypothyroidism, sciatica and dental issues. SOCIAL HISTORY: Nonsmoker, occasional drinker. PAST SURGICAL HISTORY: Back surgery. FAMILY HISTORY: Noncontributory. REVIEW OF SYSTEMS: The patient complains of chronic right shoulder pain and weakness. Otherwise, denies any shortness of breath, chest pain, nausea, vomiting or other joint complaints. MEDICATIONS: Citalopram 10 mg half tablet daily, hydrochlorothiazide 25 mg half tablet daily, Synthroid 75 mcg daily, omeprazole 20 mg daily. She also takes Claritin, multivitamin daily, flaxseed oil, fish oil, calcium,tylenol as needed and Black cohosh extract as needed. ALLERGIES: INCLUDE, TROVAN, BACTRIM, DAYPRO BIAXIN, PREDNISONE, ALBUTEROL, CEFTIN, ZITHROMAX, keflex PHYSICAL EXAMINATION: GENERAL: Well-developed, well-nourished 67-year-old female, in no acute distress. She is alert and oriented x3 and pleasant. HEENT: Normocephalic, atraumatic. Extraocular motions are intact. Pupils are equal and reactive to light. HEART: Regular rate and rhythm. No murmurs are appreciated. LUNGS: Clear. ABDOMEN: Soft and nontender, bowel sounds are present. EXTREMITIES: Right shoulder reveals limited range of motion into forward elevation to about 90 degrees due to pain and weakness. She has 3/5 strength globally. NEUROLOGIC: Neurovascularly, she is intact. In her right upper extremity, she does have positive impingement maneuvering pain. 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 She also has a history of hypothyroidism, sciatica and dental issues. PLAN: The patient was advised of her diagnosis. Indications, risks, benefits, postop course have all been reviewed. The patient wishes to proceed with a right shoulder reverse total shoulder arthroplasty. Necessary consent forms, preoperative testing and clearances will be obtained. ALEXX
[2017-05-01 16:39] VITALS: BMI 29.0
--- NOTE | 2017-05-01 20:22 | HISTORY & PHYSICAL EXAMINATION ---
DATE OF ADMISSION: 05/02/2017 CHIEF COMPLAINT: Chronic right shoulder pain. HISTORY OF PRESENT ILLNESS: This is a 67-year-old female patient of Dr. Canada complaining of chronic right shoulder pain and weakness. She has failed conservative treatment. She has been diagnosed with end-stage osteoarthritis per clinical and radiographic exams. She has also been diagnosed with an insufficient rotator cuff. At this point in time, she wishes to proceed with a right reversed total shoulder arthroplasty. PAST MEDICAL HISTORY: Hypothyroidism, sciatica, dental issues and recent new onset of AFib. SOCIAL HISTORY: Nonsmoker, nondrinker. PAST MEDICAL HISTORY: Back surgery. FAMILY HISTORY: Noncontributory. REVIEW OF SYSTEMS: The patient complains of chronic right shoulder pain and weakness. Otherwise, denies any shortness of breath, chest pain, nausea, vomiting or joint complaints. MEDICATIONS: Citalopram 10 mg half tablet daily, hydrochlorothiazide 25 mg half tablet daily, Synthroid 75 mcg daily, omeprazole 20 mg daily. She also takes Claritin, a multivitamin, flaxseed oil, fish oil, calcium, Tylenol as needed and black cohosh extract as needed, metoprolol 25 mg b.i.d. ALLERGIES: TROVAN, BACTRIM, DAYPRO, BIAXIN, PREDNISONE, ALBUTEROL, CEFTIN, ZITHROMAX AND KEFLEX. PHYSICAL EXAMINATION: GENERAL: Well-developed, well-nourished 67-year-old female in no acute distress. She is alert and oriented x3 and pleasant. HEENT: Normocephalic, atraumatic. Extraocular motions are intact. Pupils are equal and reactive to light. HEART: Regular rate and rhythm, no murmurs appreciated. LUNGS: Clear. ABDOMEN: Soft, nontender, bowel sounds present. EXTREMITIES: Right shoulder reveals limited range of motion and to full elevation about 90 degrees due to pain and weakness. She has 3/5 strength globally. NEUROLOGIC: Neurovascularly, she is intact in her right upper extremity and she does have positive impingement maneuvering pain. 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 She also has a history of hypothyroidism, sciatica, dental issues and atrial fibrillation. PLAN: The patient was advised of her diagnosis. Indications, risks, benefits, and postop course have all been reviewed. The patient wished to proceed with a right reverse total shoulder arthroplasty. Necessary consent forms, preoperative testing and clearances will be obtained.
[2017-05-02] VITALS (8 sets, daily range): BP systolic 102–148; BP diastolic 68–91; PULSE 59–75; TEMP 36.4–36.7; O2SAT 94–99; Ht 162.6 cm; Wt 77.0 kg
[~2017-05-02] VITALS: Ht 162.6 cm; Wt 77.0 kg
[~2017-05-02 09:49] MED LIST changes: +ACETAMINOPHEN 500 MG TAB PO SCH; +CeleBREX 200 MG CAP PO SCH; +DEXAMETHASONE 4 MG TAB PO SCH; +FAMOTIDINE 20 MG TAB PO SCH; +GABAPENTIN 300 MG CAP PO SCH; +LACTATED RINGER'S 1000ML 1,000 ML IV SCH; +LACTATED RINGER'S 1000ML IV SCH; +LPR25 PO; +METOCLOPRAMIDE HCL 10 MG TAB PO SCH; +PATIENT'S WEIGHT NEEDED SCH; +ROPIVACAINE 0.5% 5 MG/ML 30 ML VIAL ONE; +VANCOMYCIN INJ 1,200 MG in SODIUM CHLORIDE 0.9% 250ML 250 ML IV SCH
[2017-05-02] MEDS ORDERED: ROCURONIUM BROMIDE 10 MG/ML 5 ML VIAL ONE ×2 (09:59→13:53)
[2017-05-02] MEDS ORDERED: DEXAMETHASONE SOD INJ 4 MG/ML VIAL ONE (09:59)
[2017-05-02] MEDS ORDERED: PROPOFOL IV EMULSION 10 MG/ML 20 ML VIAL IV ONE (09:59)
[2017-05-02] MEDS ORDERED: ONDANSETRON INJ 2 MG/ML 2 ML VIAL ONE (09:59)
[2017-05-02] MEDS ORDERED: MIDAZOLAM HCL 1 MG/ML 2ML VIAL ONE (09:59)
[2017-05-02] MEDS ORDERED: LIDOCAINE HCL 2% 2 ML VIAL (20MG/ML) ONE (09:59)
[2017-05-02] MEDS ORDERED: GLYCOPYRROLATE INJ 0.2 MG/ML VIAL ONE ×2 (09:59→13:11)
[2017-05-02] MEDS ORDERED: NEOSTIGMINE METHYLSULFATE 5 MG/5 ML SYR ONE (09:59)
[2017-05-02] MEDS ORDERED: FENTANYL CITRATE INJ 50 MCG/1 ML 2 ML VIAL ONE (10:00)
--- NOTE | 2017-05-02 11:00 | History & Physical Bridge Note ---
H&P Re-Evaluation Bridge Note: I have examined the patient, reviewed the History & Physical and in the interval since the performance of the History & Physical I have noted the following changes of clinical significance: afib resolved from last encounter now on a beta segundo and in sinus rhythm.
[2017-05-02] MEDS ORDERED: HYDROmorphone INJ 2 MG/ML SYR/VIAL IV PRN (11:15)
[2017-05-02] MEDS ORDERED: ONDANSETRON INJ 2 MG/ML 2 ML VIAL IV PRN ×2 (11:15→15:30)
[2017-05-02] MEDS ORDERED: ATROPINE SULFATE 0.1 MG/ML 5ML SYR IV PRN (11:15)
[2017-05-02] MEDS ORDERED: PHENYLEPHRINE 100MCG/ML 5ML SYR IV PRN (11:15)
[2017-05-02] MEDS ORDERED: EpHEDrine SULFATE INJ 50 MG/ML AMP IV PRN (11:15)
[2017-05-02] MEDS ORDERED: BACITRACIN 50000 UNIT VIAL ONE (11:27)
[2017-05-02] MEDS ORDERED: EpINEphrine HCL INJ 1 MG/ML 5ML SYRINGE ONE (11:29)
[2017-05-02] MEDS ORDERED: EpHEDrine SULFATE 50MG/5ML SYR ONE ×2 (13:11→13:53)
--- NOTE | 2017-05-02 15:04 | [facility] Operative Report ---
Operative Report Operative Date May 02, 2017. Pre-Operative Diagnosis Right Shoulder rotator cuff arthropathy irrepairable rotator cuff tear. Post-Operative Diagnosis same,marked biceps tendinopathy anterior biceps dislocation Procedure(s) Performed right reversed total shoulder replacement and biceps tenodesis Surgeon Dr. Rigo Delacruz Slackman Surgeon(s) Chilango Hatfield PA-c Estimated Blood Loss 50 ML Findings as above Specimens Permanent Specimen A: Right Humeral head Drains 2 hemovac Anesthesia general and regional block Complication(s) None Disposition Recovery Room / PACU Indications failed conservative care I attest to the content of the Intraoperative Record and any orders documented therein. Any exceptions are noted below.
[2017-05-02] MEDS ORDERED: BISACODYL 10 MG SUPP PR PRN (15:30)
[2017-05-02] MEDS ORDERED: MoRPHine SULFATE 4 MG/ML 1 ML CARP\\VIAL IV PRN (15:30)
[2017-05-02] MEDS ORDERED: MoRPHine SULFATE 2 MG/ML CARP IV PRN (15:30)
[2017-05-02] MEDS ORDERED: MAGNESIUM HYDROXIDE SUSP 30 ML UDC PO PRN (15:30)
[2017-05-02] MEDS ORDERED: ALUMINUM/MAGNESIUM SUSP 30 ML UDC PO PRN (15:30)
[2017-05-02] MEDS ORDERED: OXYCODONE HCL IR 5 MG TAB (IMMEDIATE RELEASE) PO PRN (15:30)
--- NOTE | 2017-05-02 15:46 | DIAGNOSTIC IMAGING REPORT ---
RIGHT SHOULDER MIN 2 VIEWS ROUTINE CLINICAL HISTORY: Post shoulder surgery Right COMPARISON STUDY: None. FINDINGS: The patient is status post a reverse right total arthroplasty. The hardware appears intact. No fracture or dislocation. Skin terri and surgical drains are in place. IMPRESSION: Status post reverse right total shoulder arthroplasty. No evidence for hardware complication. Electronically signed by: Jonathan Tay M.D. 05/02/2017 3:45 PM Dictated Date/Time: 05/02/2017 3:42 PM
--- NOTE | 2017-05-02 15:49 | Anesthesiology Progress Note ---
Anesthesia Post Op Note Date & Time May 02, 2017 at 15:48 Vital Signs Pain Intensity: 0 Vital Signs Past 12 Hours Date Time Temp Pulse Resp B/P (MAP) Pulse Ox O2 Delivery O2 Flow Rate FiO2 05/02/17 15:43 61 16 97 05/02/17 15:43 61 16 05/02/17 15:41 128/79 05/02/17 15:38 63 22 05/02/17 15:38 63 22 99 05/02/17 15:36 126/86 05/02/17 15:33 63 17 98 05/02/17 15:33 63 17 05/02/17 15:31 120/77 05/02/17 15:28 65 16 05/02/17 15:28 64 16 99 05/02/17 15:26 113/80 05/02/17 15:23 73 14 98 05/02/17 15:23 72 14 05/02/17 15:21 129/80 05/02/17 15:19 132/81 05/02/17 15:18 73 99 05/02/17 15:18 36.2 74 16 132/81 98 Mask 10 05/02/17 15:18 73 05/02/17 10:20 36.7 60 20 148/91 97 Room Air Notes Mental Status: alert / awake / arousable, participated in evaluation Pt Amnestic to Procedure: Yes Nausea / Vomiting: adequately controlled Pain: adequately controlled Airway Patency, RR, SpO2: stable & adequate BP & HR: stable & adequate Hydration State: stable & adequate Anesthetic Complications: no major complications apparent
[2017-05-02] MEDS: D5W AND 1/2NSS + 20MEQ KCL 1,000 ML IV SCH (17:12)
[2017-05-02] MEDS: DOCUSATE SODIUM 100 MG CAP PO SCH (20:49)
[2017-05-02] MEDS: SENNA 8.6 MG TAB PO SCH (20:50)
[2017-05-02] MEDS: METOPROLOL TARTRATE 25 MG TAB PO SCH (20:50)
[2017-05-02] MEDS ORDERED: CITALOPRAM 20 MG TAB PO SCH (21:00)
[2017-05-02] MEDS: ACETAMINOPHEN 500 MG TAB PO SCH (21:39)
[2017-05-02] MEDS ORDERED: VANCOMYCIN INJ 1,200 MG in SODIUM CHLORIDE 0.9% 250ML 250 ML IV SCH (22:00)
[2017-05-02] MEDS ORDERED: COUGH DROP (SUGAR FREE) LOZ 24 LOZ/1 BOX ONE (22:09)
[2017-05-02] MEDS ORDERED: COUGH DROP (SUGAR FREE) LOZ 24 LOZ/1 BOX PO PRN (22:15)
[2017-05-02] MEDS ORDERED: NURSING DECISION MEDICATION ORDER SCH (22:15)
[2017-05-03] VITALS (7 sets, daily range): BP systolic 103–146; BP diastolic 69–82; PULSE 63–77; TEMP 36.4–37; O2SAT 93–98
--- NOTE | 2017-05-03 02:02 | OPERATIVE REPORT ---
DATE OF OPERATION: 05/02/2017 INDICATION FOR PROCEDURE: A 67-year-old female, with chronic right shoulder pain and weakness. She has a chronic irreparable rotator cuff tear, rotator cuff arthropathy, failed conservative management. Her x-rays demonstrate proximal migration of the humerus with narrowed acromiohumeral interval consistent with chronic cuff tear and her exam demonstrates significant abduction, external rotation and weakness consistent with a chronic rotator cuff tear. PREOPERATIVE DIAGNOSES: Chronic right rotator cuff tear, rotator cuff arthropathy with repairable tear of the rotator cuff. POSTOPERATIVE DIAGNOSIS: Same including dislocation of the biceps tendon anteriorly under the subscapularis tendon with tendinopathy of the biceps tendon. PROCEDURE: Right reverse total shoulder arthroplasty and biceps tenodesis. SURGEON: Rigo Delacruz MD NURSING MANAGER: SARINA Vicente ANESTHESIA: Regional block and general. OPERATIVE PROCEDURE: The patient was taken to the operating room and anesthetized under regional block and general anesthetic. She was positioned on about 30 degree beachchair position on the operating room table. A towel roll was placed on the medial border of her right scapula. She was translated to right side of the bed, so the shoulder could be manipulated off the bed as necessary. The head was placed on a foam headrest and she had protective eyewear placed. She had TEDs and SCDs placed. She had a Marks catheter placed. Right shoulder exam demonstrated that she had subacromial crepitation. She had a flexible arm with good range of motion. Her right shoulder was sterilely prepped and draped with ChloraPrep. An anterior incision was made in the deltopectoral interval. The skin was incised sharply. The fat was divided down to the fascia. The cephalic vein was dissected out and retracted laterally with the deltoid. A crossing vessel was tied off with silk ties and divided. The clavipectoral fascia was divided at the lateral margin of the conjoined tendon and strap muscle extended up to the CA ligament which was preserved. There was some thickened bursa in the subacromial space over the subscapularis extending and over the posterior cuff which was all excised revealing a large cuff tear. She had some teres minor remaining and a little bit of infraspinatus posteriorly. She has had no supraspinatus or majority of the infraspinatus superiorly and she did have a thin tendinopathic subscapularis tendon with partial tearing in the upper subscapularis with dislocation of the biceps tendon anteriorly under the subscapularis. There was biceps tendinopathy with widening of the biceps proximally. The upper centimeter of the pectoralis was released and the biceps tendon was tenodesed to the pectoralis tendon with [id number] #2 FiberWire suture and the proximal biceps was resected. The circumflex vessels were identified, dissected out, tied off with silk ties and divided laterally. The muscle fibers of the subscapularis was split at the level of the circumflex vessels leaving a cuff of tissue to protect the axillary nerve which was identified with a tug test and protected with a blunt Hohmann retractor. The subscapularis tendon was then taken down right through the bicipital groove and then subperiosteal dissection to remove the capsule and a thin tendinopathic subscapularis tendon tissue and then this was subperiosteal released off the neck of the humerus, so we had a complete capsular release around the inferior neck of the humerus. A #1 Vicryl traction suture was placed into the end of the subscapularis tendon and capsule area. A Fukuda retractor was placed into the joint and the humeral head was retracted posteriorly. The capsule was then released under direct visualization anteriorly down to the glenoid and then released off the anterior glenoid and rotator interval tissue was released down to the glenoid, so we had a 360 degree release of the subscapularis. This was retracted anteriorly and then we fully visualized the labrum which was resected circumferentially. She still had articular cartilage on the glenoid. She had some arthritic jin, but still had articular cartilage on the glenoid side. The labrum was resected circumferentially and the remnant of the biceps was resected superiorly. The capsule was released anteriorly inferiorly and posterior inferiorly to get exposure of the glenoid. She had a small glenoid noted. After our releases were performed, we went ahead to expose the humeral head which was exposed with extension and external rotation. However, significance of superior arthritic changes on the head from impingement against the acromion, the humeral head was exposed with retractors and the cutting guide for the humeral head was placed into the superior humeral head and placed down into the shaft. A cutting guide was positioned to resect the humeral head at 20 degrees of retroversion. I used the Aequalis reverse II total shoulder arthroplasty glenoid and baseplate and the Ascend Flex long stem reversed humeral component from [employer]. The humeral cut was made at 20 degrees of retroversion and then the humerus was retracted posterior to the glenoid with retractors and the glenoid articular cartilage was curetted off with a curette, so we got the bone exposed and were able to identify the appropriate version of the glenoid. The guide for a 25 mm baseplate was placed and the drill hole for the reamer was placed in about 10 degree inferior tilt. The reamer was then used and then we widened the central hole and then placed in the glenoid baseplate, 25 mm with a tight pressfit. Anterior and posterior compression screws of 18 and 20 mm were used and the superior and inferior locking screws of 29 and 23 mm were used and there was excellent fixation of the baseplate. The fan reamer was used for the glenoid sphere. All debris was irrigated out and then the 36 mm glenoid sphere was impacted onto the baseplate and then the screw was tightened securely. Attention was taken to the humeral preparation. We used a centering awl followed by broaches up to a 3 which had the appropriate fit and fill. The 4 was difficult to fully seat because she had bit of a tight shoulder, I felt we should downsize to a 3 stem and seat that deeper and resect more of the proximal humerus to get appropriate tension. This was performed with an oscillating saw at 20 degrees of retroversion with the trial stem in place. Then we did a trial reduction with the high offset reversed tray and then a +6 mm thick reverse insert gave excellent stability; no shuck and good range of motion. The trials were removed and the drill holes were then made through the harder bone in the bicipital groove with transosseous #5 FiberWire sutures x3 placed around the lesser tuberosity for later repair of the subscapularis. After copious irrigation of the canal, the final components were assembled which were the long stem 3 B stem assembled to the high offset +0 reversed tray and the +6 mm reversed insert. The component was impacted into the humerus with a good press fit. This was reduced to the glenoid with stable fixation and then the subscapularis tendon was repaired with #5 FiberWire sutures using Wally-Godwin suture technique and lateral soft tissue repair was made with [id number] #2 FiberWire sutures. Then the pectoralis split which was split for about a cm was repaired with the [id number] #2 FiberWire reinforcing the biceps tenodesis. Two drains were placed. After more irrigation with antibiotic solution and bacitracin, the deltoid and pectoral interval was closed with [id number] #1 Vicryl sutures. The subcutaneous tissue was closed with interrupted 2-0 Vicryl and skin closed with terri. Sterile dressings were applied. The patient tolerated the procedure well. SARINA Vicente was my nurse first assist; he functioned as nurse first assist for the entire procedure. He assisted in positioning, prepping, draping, arm positioning, soft tissue retraction and performed the subcutaneous skin closure. He will participate in postoperative care of the patient. I attest to the content of the Intraoperative Record and any orders documented therein. Any exception s are noted below.
[2017-05-03] MEDS: D5W AND 1/2NSS + 20MEQ KCL 1,000 ML IV SCH (03:14)
[2017-05-03] MEDS: ACETAMINOPHEN 500 MG TAB PO SCH ×3 (05:41→21:43)
[2017-05-03] MEDS: LEVOTHYROXINE 75 MCG TAB PO SCH (05:41)
[2017-05-03 05:47] LABS: HEMATOCRIT 33.6 % (37-47); MEAN CELL VOLUME 97.7 fL (80-100); MEAN CORPUSCULAR HEMOGLOBIN 32.8 pg (25-34); MEAN CORPUSCULAR HGB CONC 33.6 g/dl (32-36); MEAN PLATELET VOLUME 9.2 fL (7.4-10.4); PLATELET COUNT 258 K/uL (130-400); RED BLOOD COUNT 3.44 M/uL (4.2-5.4); WHITE BLOOD COUNT 6.62 K/uL (4.8-10.8)
[2017-05-03 06:21] LABS: BUN/CREATININE RATIO 16.4 (10-20); CALCIUM 7.8 mg/dl (8.5-10.1); CREATININE 0.66 mg/dl (0.60-1.20); POTASSIUM 4.5 mmol/L (3.5-5.1)
--- NOTE | 2017-05-03 07:40 | Anesthesiology Progress Note ---
Anesthesia Post Op Note Date & Time May 03, 2017 at 07:40 Vital Signs Pain Intensity: 0.0 Vital Signs Past 12 Hours Date Time Temp Pulse Resp B/P (MAP) Pulse Ox O2 Delivery O2 Flow Rate FiO2 05/03/17 07:10 36.6 66 16 112/73 (86) 98 Room Air 05/03/17 03:19 36.7 66 16 103/69 (80) 93 Room Air 05/02/17 23:30 Room Air 05/02/17 23:12 36.6 72 16 102/71 (81) 94 Room Air 05/02/17 20:52 75 110/77 (88) 94 Room Air Notes Mental Status: alert / awake / arousable, participated in evaluation Pt Amnestic to Procedure: Yes Nausea / Vomiting: adequately controlled Pain: adequately controlled Airway Patency, RR, SpO2: stable & adequate BP & HR: stable & adequate Hydration State: stable & adequate Neuraxial Anesthesia: was administered, sensory block resolved Anesthetic Complications: no major complications apparent
[2017-05-03] MEDS ORDERED: NURSING VERBAL MED ORDER ONE ×2 (08:00→18:30)
[2017-05-03] MEDS: MULTIVITAMIN TAB PO SCH (08:24)
[2017-05-03] MEDS: DOCUSATE SODIUM 100 MG CAP PO SCH ×2 (08:25→21:42)
[2017-05-03] MEDS: PANTOprazole SOD 40 MG TAB PO SCH (08:26)
[2017-05-03] MEDS: LORATADINE 10 MG TAB PO SCH (08:26)
[2017-05-03] MEDS: METOPROLOL TARTRATE 25 MG TAB PO SCH ×2 (08:27→21:42)
[2017-05-03] MEDS: HYDROCHLOROTHIAZIDE 25 MG TAB PO SCH (08:27)
--- NOTE | 2017-05-03 08:31 | Orthopedic Progress Note ---
Orthopedic Progress Note Date of Service May 03, 2017. Subjective Post OP Day: 1 Reports: feeling well, pain controlled w PO medications, Denies: complaints, chest pain, SOB, nausea / vomiting, light headedness, calf pain Objective N/V intact, capillary refill less than 2 sec., dressing C/D/I, A&O x3 Sling in tact, fingers mobile Date Time Temp Pulse Resp B/P (MAP) Pulse Ox O2 Delivery O2 Flow Rate FiO2 05/03/17 07:10 36.6 66 16 112/73 (86) 98 Room Air 05/03/17 03:19 36.7 66 16 103/69 (80) 93 Room Air 05/02/17 23:30 Room Air 05/02/17 23:12 36.6 72 16 102/71 (81) 94 Room Air 05/02/17 20:52 75 110/77 (88) 94 Room Air 05/02/17 19:30 36.4 70 16 106/72 (83) 98 Nasal Cannula 2.0 05/02/17 18:15 36.4 66 16 110/73 (85) 99 Nasal Cannula 2.0 05/02/17 17:15 36.4 61 16 106/68 (81) 97 Nasal Cannula 2.0 05/02/17 16:45 36.4 59 17 105/70 (82) 94 Nasal Cannula 2.0 05/02/17 16:15 97 Nasal Cannula 2.0 05/02/17 16:15 97 Nasal Cannula 2.0 05/02/17 16:10 62 17 98 05/02/17 16:10 61 17 05/02/17 16:05 62 18 98 05/02/17 16:05 62 18 05/02/17 16:01 128/74 05/02/17 16:00 65 19 05/02/17 16:00 65 19 98 05/02/17 15:56 123/77 05/02/17 15:55 64 17 98 05/02/17 15:55 62 17 05/02/17 15:55 36.4 61 18 123/77 98 Nasal Cannula 2 05/02/17 15:51 132/84 05/02/17 15:50 60 20 05/02/17 15:50 59 20 98 05/02/17 15:49 59 19 05/02/17 15:49 59 19 98 05/02/17 15:46 129/84 05/02/17 15:44 62 19 05/02/17 15:44 62 19 97 05/02/17 15:43 61 16 97 05/02/17 15:43 61 16 05/02/17 15:41 128/79 05/02/17 15:38 63 22 05/02/17 15:38 63 22 99 05/02/17 15:36 126/86 05/02/17 15:33 63 17 98 05/02/17 15:33 63 17 05/02/17 15:31 120/77 05/02/17 15:28 65 16 05/02/17 15:28 64 16 99 05/02/17 15:26 113/80 05/02/17 15:23 73 14 98 05/02/17 15:23 72 14 05/02/17 15:21 129/80 05/02/17 15:19 132/81 05/02/17 15:18 73 99 05/02/17 15:18 36.2 74 16 132/81 98 Mask 10 05/02/17 15:18 73 05/02/17 10:20 36.7 60 20 148/91 97 Room Air Laboratory Results 24 Hours: Test 05/03/17 05:14 Hematocrit 33.6 % Hemoglobin 11.3 g/dL Assessment & Plan Assessment: POD #1, Right Reversed TSA, biceps tenodesis Plan: PT/ OT D/C plans- home As per medicine Inhouse Planning Pain Management: Morphine, PO Tylenol, Oxy IR DVT Prophylaxis: SCDs Discharge Planning Discharge Planning: home Pain Management: PO Tylenol, Oxy IR DVT Prophylaxis: TEDs, SCDs
--- NOTE | 2017-05-03 12:02 | Medical Consult ---
Consultation Date of Consultation: May 03, 2017. Attending Physician: Rigo Delacruz M.D. Reason for Consultation: Medical Management History of Present Illness This is a 67 yo F with PMHx of HTN, recent new onset of paroxsysmal AFib, hypothyroidism, sciatica, GERD, depression, who present for an elective right reverse total shoulder arthroplasty performed by Dr. Delacruz on 05/02/17. She reports being on the OR schedule last week for an anticipated right reverse total shoulder however she was found to be in A. fib with RVR at that time. Cardiology was consulted and she was supposed to start Coumadin. They reschedule her surgery for yesterday and she has not since been started on anticoagulation. She was seen and examined this morning she is doing very well. Reports her right shoulder is somewhat warm that Percocet has been controlling pain adequately. She has not had a bowel movement, but is passing gas. She has been ambulating about the ghosh. Patient is anticipating discharge to home tomorrow. Past Medical/Surgical History Medical Problems: (1) Atrial fibrillation with rapid ventricular response Status: Acute Family History Cancer Heart disease Hypertension Social History Smoking Status: Former Smoker Smokeless Tobacco Use: No Alcohol Use: none Drug Use: none Marital Status: Housing Status: lives with significant other Occupation Status: retired Allergies Coded Allergies: Albuterol (Verified Allergy, Unknown, HIVES, 05/02/17) Azithromycin (Verified Allergy, Unknown, HIVES, 05/02/17) Cefuroxime (Verified Allergy, Unknown, HIVES, 05/02/17) Cephalexin (Verified Allergy, Unknown, HIVES, 05/02/17) Clarithromycin (Verified Allergy, Unknown, HIVES, 05/02/17) Oxaprozin (Verified Allergy, Unknown, HIVES, 05/02/17) Prednisone (Verified Allergy, Unknown, HIVES, 05/02/17) Sulfamethoxazole w/Trimethoprim (Verified Allergy, Unknown, HIVES, 05/02/17 ) Trovafloxacin (Verified Allergy, Unknown, HIVES, 05/02/17) Current Inpatient Medications Current Inpatient Medications Medications (Trade) Dose Ordered Sig/Ben Route Start Time Stop Time Status Last Admin Dose Admin Hydrochlorothiazide (Hydrochlorothiazide Tab) 25 mg QAM PO 05/03/17 09:00 06/02/17 08:59 05/03/17 08:27 25 MG Levothyroxine Sodium (Synthroid Tab) 75 mcg DAILYBB PO 05/03/17 06:00 06/02/17 06:59 05/03/17 05:41 75 MCG Loratadine (Claritin Tab) 10 mg QAM PO 05/03/17 09:00 06/02/17 08:59 05/03/17 08:26 10 MG Metoprolol Tartrate (Lopressor Tab) 25 mg BID PO 05/02/17 21:00 06/01/17 20:59 05/03/17 08:27 25 MG Morphine Sulfate (MoRPHine SULFATE INJ) 2 mg Q4HWA PRN IV 05/02/17 15:30 05/16/17 15:29 Morphine Sulfate (MoRPHine SULFATE INJ) 4 mg Q4HWA PRN IV 05/02/17 15:30 05/16/17 15:29 Ondansetron HCl (Zofran Inj) 4 mg Q6H PRN IV 05/02/17 15:30 06/01/17 15:29 Al Hydroxide/Mg Hydroxide (Maalox Susp) 30 ml Q4H PRN PO 05/02/17 15:30 06/01/17 15:29 Pantoprazole Sodium (Protonix Tab) 40 mg QAM PO 05/03/17 09:00 06/02/17 08:59 05/03/17 08:26 40 MG Oxycodone HCl (Roxicodone Immediate Rel Tab) `1-2 TABS FOR PAIN `1 TAB... Q4H PRN PO 05/02/17 15:30 05/16/17 15:29 05/03/17 11:20 5 MG Acetaminophen (Tylenol Tab) 1,000 mg Q8 PO 05/02/17 22:00 06/01/17 21:59 05/03/17 05:41 1,000 MG Magnesium Hydroxide (Milk Of Magnesia Susp) 30 ml Q6H PRN PO 05/02/17 15:30 06/01/17 15:29 Bisacodyl (Dulcolax Supp) 10 mg DAILY PRN [place] 05/02/17 15:30 06/01/17 15:29 Senna (Senokot Tab) 17.2 mg HS PO 05/02/17 21:00 06/01/17 20:59 05/02/17 20:50 17.2 MG Docusate Sodium (coLACE CAP) 100 mg BID PO 05/02/17 21:00 06/01/17 20:59 05/03/17 08:25 100 MG Multivitamins (Multivitamin Tab) 1 tab DAILY PO 05/03/17 09:00 06/02/17 08:59 05/03/17 08:24 1 TAB Miscellaneous Information (Order Awaiting Action) 1 ea QS N/A 05/03/17 00:00 06/02/17 00:00 Menthol (Nice Nakul) 1 nakul PRN PRN PO 05/02/17 22:15 06/01/17 22:14 05/02/17 22:10 1 NAKUL Review of Systems Constitutional: No fever, No chills, No sweats Eyes: No eye pain, No diplopia ENT: No sore throat, No trouble swallowing Respiratory: No shortness of breath, No dyspnea on exertion Cardiovascular: No chest pain, No palpitations Abdomen: No pain, No nausea, No vomiting, No diarrhea, No constipation Musculoskeletal: + joint pain (R shoulder soreness), No swelling Genitourinary - Female: No dysuria Neurologic: No numbness/tingling, No vertigo Endocrine: No fatigue Integumentary: No rash, No itch Physical Exam Date Time Temp Pulse Resp B/P (MAP) Pulse Ox O2 Delivery O2 Flow Rate FiO2 05/03/17 11:09 36.4 63 16 111/75 (87) 97 Room Air 05/03/17 07:40 Room Air 05/03/17 07:10 36.6 66 16 112/73 (86) 98 Room Air 05/03/17 03:19 36.7 66 16 103/69 (80) 93 Room Air 05/02/17 23:30 Room Air 05/02/17 23:12 36.6 72 16 102/71 (81) 94 Room Air 05/02/17 20:52 75 110/77 (88) 94 Room Air 05/02/17 19:30 36.4 70 16 106/72 (83) 98 Nasal Cannula 2.0 05/02/17 18:15 36.4 66 16 110/73 (85) 99 Nasal Cannula 2.0 05/02/17 17:15 36.4 61 16 106/68 (81) 97 Nasal Cannula 2.0 05/02/17 16:45 36.4 59 17 105/70 (82) 94 Nasal Cannula 2.0 05/02/17 16:15 97 Nasal Cannula 2.0 05/02/17 16:15 97 Nasal Cannula 2.0 05/02/17 16:10 62 17 98 05/02/17 16:10 61 17 05/02/17 16:05 62 18 98 05/02/17 16:05 62 18 05/02/17 16:01 128/74 05/02/17 16:00 65 19 05/02/17 16:00 65 19 98 05/02/17 15:56 123/77 05/02/17 15:55 64 17 98 05/02/17 15:55 62 17 05/02/17 15:55 36.4 61 18 123/77 98 Nasal Cannula 2 05/02/17 15:51 132/84 05/02/17 15:50 60 20 05/02/17 15:50 59 20 98 05/02/17 15:49 59 19 05/02/17 15:49 59 19 98 1417 15:46 129/84 05/02/17 15:44 62 19 05/02/ 15:44 62 19 97 05/02/17 15:43 61 16 97 05/02/17 15:43 61 16 05/02/17 15:41 128/79 17 15:38 63 22 17 15:38 63 22 99 1417 15:36 126/86 17 15:33 63 17 98 05/02/17 15:33 63 17 17 15:31 120/77 14/17 15:28 65 16 14/17 15:28 64 16 99 14/17 15:26 113/80 14/17 15:23 73 14 98 14/17 15:23 72 14 14/17 15:21 129/80 14/17 15:19 132/81 14/17 15:18 73 99 14/17 15:18 36.2 74 16 132/81 98 Mask 10 14/17 15:18 73 General Appearance: WD/WN, no apparent distress Head: normocephalic, atraumatic Eyes: PERRL, EOMI ENT: hearing grossly normal, pharynx normal Neck: supple, no JVD Respiratory/Chest: lungs clear, normal breath sounds, no respiratory distress, no accessory muscle use Cardiovascular: regular rate, rhythm, no murmur, normal peripheral pulses Abdomen/GI: non tender, soft, + pertinent finding (hypoactive bowel sounds) Back: normal inspection Extremities/Musculoskelatal: + pertinent finding (R shoulder in sling) Neurologic/Psych: alert, normal mood/affect, oriented x 3 Skin: normal color, warm/dry Laboratory Results Last 24 Hours Test 05/03/17 05:14 White Blood Count 6.62 K/uL Red Blood Count 3.44 M/uL Hemoglobin 11.3 g/dL Hematocrit 33.6 % Mean Corpuscular Volume 97.7 fL Mean Corpuscular Hemoglobin 32.8 pg Mean Corpuscular Hemoglobin Concent 33.6 g/dl RDW Standard Deviation 44.0 fL RDW Coefficient of Variation 12.3 % Platelet Count 258 K/uL Mean Platelet Volume 9.2 fL Sodium Level 139 mmol/L Potassium Level 4.5 mmol/L Chloride Level 104 mmol/L Carbon Dioxide Level 30 mmol/L Anion Gap 5.0 mmol/L Blood Urea Nitrogen 11 mg/dl Creatinine 0.66 mg/dl Est Creatinine Clear Calc Drug Dose 83.1 ml/min Estimated GFR () 105.9 Estimated GFR (Non- 91.4 BUN/Creatinine Ratio 16.4 Random Glucose 151 mg/dl Calcium Level 7.8 mg/dl Assessment & Plan S/p R elective reverse total shoulder arthroplasty - Pain management with Dilaudid, Tylenol [id number], Percocet, - bowel regimen in place with Dulcolax, MiraLAX, Colace - PT/ OT per primary team New onset Paroxysysmal Afib Mitral regurgitation Hypertension - Was evaluated by Dr. Smith on 04/26/17 when she was initially scheduled for an elective R shoulder arthroplasty but was then found to be in Afib with RVR on tele monitor in preop. She was completely asymptomatic when this occurred. The patient was supposed to start anticoagulation but hasn't yet due to getting surgery. - Will need to discuss with ortho when they are agreeable to starting anticoagulation from a surgical standpoint, hopefully can start coumadin later today. Pt will need follow up with Dr. Smith at time of discharge. - CHADS2-VASc score is 3 given her age, gender and history of hypertension - Cont metoprolol 25 BID - Cont hydralazine 25 mg QAm for peripheral lower extremity edema Hypothyroidism - Cont Levothyroxine 75 mcg Depression - Cont celexa 5 mg daily GERD: Cont ppi with pantoprazole 40 mg QAM DVT ppx: teds, scds, OOB, possibly will start coumadin tonight CODE STATUS: FULL CODE Disposition: From home,will plan on home health PT/OT PA Physician Supervision Note: I interviewed and examined the patient. Discussed with Yvonne Urias PAC and agree with findings and plan as documented in the note. Any exceptions or clarifications are listed here: None this pt is recovering well after surgery, afib is rate controlled agreeable to full AC on discharge. vitals are stable car is irregularly irregular lungs are clear continue metoprolol, and start coumadin before discharge. Wishes to follow up with Dr Smith for cardiology and Dr Lane for pcp and INR adjustment Documented By: Sherman Carnes
[2017-05-03] MEDS ORDERED: WARFARIN SOD 5 MG TAB PO SCH (20:00)
[2017-05-03] MEDS ORDERED: CITALOPRAM 10 MG TAB PO SCH (21:00)
[2017-05-03] MEDS: SENNA 8.6 MG TAB PO SCH (21:43)
[2017-05-04] MEDS: LEVOTHYROXINE 75 MCG TAB PO SCH (05:31)
[2017-05-04] MEDS: ACETAMINOPHEN 500 MG TAB PO SCH (05:32)
[2017-05-04 06:14] LABS: HEMATOCRIT 33.6 % (37-47); MEAN CELL VOLUME 99.1 fL (80-100); MEAN CORPUSCULAR HEMOGLOBIN 32.7 pg (25-34); MEAN PLATELET VOLUME 9.2 fL (7.4-10.4); PLATELET COUNT 242 K/uL (130-400); RED BLOOD COUNT 3.39 M/uL (4.2-5.4); WHITE BLOOD COUNT 8.59 K/uL (4.8-10.8)
[2017-05-04 06:22] LABS: INR 0.9 (0.9-1.1)
[2017-05-04 06:54] LABS: BUN/CREATININE RATIO 25.1 (10-20); CALCIUM 8.1 mg/dl (8.5-10.1); CREATININE 0.59 mg/dl (0.60-1.20); POTASSIUM 3.6 mmol/L (3.5-5.1)
[2017-05-04 07:26] VITALS: BP 123/78; PULSE 73; TEMP 36.7; O2SAT 95
[2017-05-04] MEDS: PANTOprazole SOD 40 MG TAB PO SCH (07:41)
--- NOTE | 2017-05-04 08:21 | Orthopedic Progress Note ---
Orthopedic Progress Note Date of Service May 04, 2017. Subjective Post OP Day: 2 Reports: feeling well, pain controlled w PO medications, Denies: complaints, chest pain, SOB, nausea / vomiting, light headedness, calf pain Objective N/V intact, capillary refill less than 2 sec., incision C/D/I, A&O x3 Sling in tact, fingers mobile Date Time Temp Pulse Resp B/P (MAP) Pulse Ox O2 Delivery O2 Flow Rate FiO2 05/04/17 07:54 Room Air 05/04/17 07:26 36.7 73 16 123/78 (93) 95 Room Air 05/04/17 00:10 Room Air 05/03/17 22:57 37.0 72 16 123/80 (94) 97 Room Air 05/03/17 21:37 123/81 (95) 05/03/17 19:42 36.6 77 16 146/82 (103) 97 Room Air 05/03/17 15:25 Room Air 05/03/17 15:10 36.6 68 18 103/69 (80) 94 Room Air 05/03/17 11:09 36.4 63 16 111/75 (87) 97 Room Air Laboratory Results 24 Hours: Test 05/04/17 05:31 Hematocrit 33.6 % Hemoglobin 11.1 g/dL Prothromb Time International Ratio 0.9 Prothrombin Time 10.0 SECONDS Assessment & Plan Assessment: POD #2, Right Reversed TSA, biceps tenodesis Plan: PT/ OT D/C plans- home today As per medicine Will follow w Dr. Lane Sunday for Coumadin management Inhouse Planning Pain Management: Morphine, PO Tylenol, Oxy IR DVT Prophylaxis: SCDs, Coumadin Discharge Planning Discharge Planning: home Pain Management: PO Tylenol, Oxy IR DVT Prophylaxis: TEDs, Coumadin
[2017-05-04] MEDS: MULTIVITAMIN TAB PO SCH (08:22)
[2017-05-04] MEDS: HYDROCHLOROTHIAZIDE 25 MG TAB PO SCH (08:22)
[2017-05-04] MEDS: LORATADINE 10 MG TAB PO SCH (08:22)
[2017-05-04] MEDS: METOPROLOL TARTRATE 25 MG TAB PO SCH (08:22)
[2017-05-04] MEDS ORDERED: ONDA8TAB6 PO (08:23)
[2017-05-04] MEDS ORDERED: CMD5 PO (08:23)
[2017-05-04] MEDS ORDERED: ACET-24 PO (08:23)
[2017-05-04] MEDS ORDERED: RXC5 PO (08:23)
[2017-05-04] MEDS: DOCUSATE SODIUM 100 MG CAP PO SCH (08:23)
[2017-05-04 08:24] VITALS: BP 123/78; PULSE 73; TEMP 36.7; O2SAT 95
--- NOTE | 2017-05-04 08:26 | Discharge Instructions ---
Discharge Instructions Date of Service May 04, 2017. Admission Reason for Admission: Right Shoulder Rotator Cuff Arthropathy Discharge Discharge Diagnosis / Problem: Right reversed TSA, biceps tenodesis Discharge Goals Goal(s): Improve function Activity Recommendations Activity Limitations: as noted below . Instructions / Follow-Up Instructions / Follow-Up ACTIVITY RECOMMENDATIONS: SELF CARE INSTRUCTIONS AFTER TOTAL SHOULDER ARTHROPLASTY REVERSE A. You may do daily exercises as taught in physical therapy while in hospital. No lifting with the operative arm. B. You are to wear your sling/immobilizer at all times EXCEPT when performing your daily exercises and for hygiene purposes. C. You may perform dry, daily dressing changes. Please keep your incision covered. You may shower 48 hours after surgery. Do not apply soap or any ointment/ lotions directly over incision. Do not soak incision in bath tub/swimming pool. D. You may use ice as needed to operative shoulder. SPECIAL CARE INSTRUCTIONS: VERY IMPORTANT TO READ AND REVIEW A. There are a few signs you need to watch for after you are home. Call [facility] at [phone] if you experience any of the followin. Increased severe shoulder pain. Some pain is expected especially when you exercise. 2. Increased swelling in you shoulder or arm; pain or swelling in either upper extremity. 3. Any fluid drainage from the incision. 4. Shortness of breath or chest pain. B. Please call [facility] at [phone] if you have any questions or concerns about your operation or recovery. C. Call your physician if: 1. Temperature is greater than 101 degrees (F). 2. Pain is not relieved by prescribed pain medications. 3. Increase drainage or redness from incision. 4. Unanswered questions or concerns. FOLLOW UP VISIT: Please call [facility] at [phone] to schedule a follow up appointment with Dr. Delacruz or his PA in 12-14 days from your surgery date. TAKE COUMADIN DIRECTED FOR THE WEEKEND, THEN SEE DR VILLELA FOR A-FIB MANAGEMENT AND BLOOD WORK ON SUNDAY. Current Hospital Diet Patient's current hospital diet: Regular Diet Discharge Diet Recommended Diet: Regular Diet Procedures Procedures Performed: Right Reverse Total Shoulder Arthroplasty Pending Studies Studies pending at discharge: no Laboratory Results Hemoglobin A1c Test 04/06/17 11:35 Range/Units Estimated Average Glucose 100 mg/dl Hemoglobin A1c 5.1 4.5-5.6 % Medical Emergencies . Who to Call and When: Medical Emergencies: If at any time you feel your situation is an emergency, please call 911 immediately. . Non-Emergent Contact Non-Emergency issues call your: Primary Care Provider . "Provider Documentation" section prepared by Dany Doshi. . VTE Core Measure Inpt VTE Proph given/why not?: Warfarin (Coumadin)Ann, SCD's [place] Drug Monitoring Program Search Results: patient reviewed within database, no issues identified
--- NOTE | 2017-05-04 15:51 | Progress Note ---
Subjective Date of Service: May 04, 2017. Subjective pt feels well and ready to leave, no issues with her afib, has follow up apt scheduled with Dr Lane monday 05/07 Problem List Medical Problems: (1) Atrial fibrillation with rapid ventricular response Status: Acute Review of Systems Constitutional: No fever, No chills Respiratory: No cough, No shortness of breath Cardiac: No chest pain Abdomen: No pain, No nausea, No vomiting, No diarrhea Musculoskeletal: + joint pain, + muscle pain Objective Vital Signs Date Time Temp Pulse Resp B/P (MAP) Pulse Ox O2 Delivery O2 Flow Rate FiO2 05/04/17 08:24 36.7 73 16 95 Room Air 05/04/17 07:54 Room Air 05/04/17 07:26 36.7 73 16 123/78 (93) 95 Room Air 05/04/17 00:10 Room Air 05/03/17 22:57 37.0 72 16 123/80 (94) 97 Room Air 05/03/17 21:37 123/81 (95) 05/03/17 19:42 36.6 77 16 146/82 (103) 97 Room Air Physical Exam General Appearance: WD/WN, + mild distress Respiratory/Chest: chest non-tender, lungs clear, normal breath sounds Cardiovascular: no murmur, + irregularly irregular Abdomen: normal bowel sounds, non tender, soft Neurologic/Psychiatric: alert, oriented x 3 Laboratory Results Last 24 Hours Test 05/04/17 05:31 White Blood Count 8.59 K/uL Red Blood Count 3.39 M/uL Hemoglobin 11.1 g/dL Hematocrit 33.6 % Mean Corpuscular Volume 99.1 fL Mean Corpuscular Hemoglobin 32.7 pg Mean Corpuscular Hemoglobin Concent 33.0 g/dl RDW Standard Deviation 45.9 fL RDW Coefficient of Variation 12.6 % Platelet Count 242 K/uL Mean Platelet Volume 9.2 fL Prothrombin Time 10.0 SECONDS Prothromb Time International Ratio 0.9 Sodium Level 138 mmol/L Potassium Level 3.6 mmol/L Chloride Level 102 mmol/L Carbon Dioxide Level 28 mmol/L Anion Gap 8.0 mmol/L Blood Urea Nitrogen 15 mg/dl Creatinine 0.59 mg/dl Est Creatinine Clear Calc Drug Dose 93.0 ml/min Estimated GFR () 109.9 Estimated GFR (Non- 94.8 BUN/Creatinine Ratio 25.1 Random Glucose 101 mg/dl Calcium Level 8.1 mg/dl Assessment and Plan S/p R elective reverse total shoulder arthroplasty will be discharged home with outpt PT New onset Paroxysysmal Afib CHADS2-VASc score is 3 given her age, gender and history of hypertension - Cont metoprolol 25 BID -agrees to start coumadin, wants Dr Lane to manage, will check INR sunday, will also continue to follow Dr Smith and will travel to [place] to see Hypothyroidism Levothyroxine 75 mcg Depression celexa 5 mg daily Documented By: Sherman Carnes
--- NOTE | 2017-05-07 23:14 | DISCHARGE SUMMARY ---
DISCHARGE DIAGNOSES: Right shoulder rotator cuff arthropathy with irreparable rotator cuff tear, marked biceps tendinopathy, anterior biceps dislocation. SECONDARY DIAGNOSES: Hypothyroidism, sciatica, dental issues, recent onset of atrial fibrillation. CONSULTS: Yvonne Urias PA-C/Sherman Carnes MD. COMPLICATIONS: None. PROCEDURES: Right reverse total shoulder replacement and biceps tenodesis by Dr. Delacruz on 05/02/2017. BRIEF HISTORY: As dictated in the history and physical. HOSPITAL SUMMARY: The patient was admitted on the above-noted date and had the above-noted surgery performed which she tolerated well. On her first postoperative day, she was feeling well and pain was controlled. She had no complaints. Neurovascular was intact. Cap refill was less than 2 seconds. Dressings clean, dry and intact, and sling was intact, fingers were mobile. Vital signs were stable, she was afebrile. Hemoglobin was 11.3. She was started on PT/OT and continued on medical coverage per [facility] and she was seen by Yvonne Urias and was continued to be monitored during her stay with Dr. Carnes. By her second postoperative day, she was feeling well and pain was controlled. Neurovascular was intact. Cap refill was less than 2 seconds. Incision was clean, dry and intact. Fingers were mobile. Vital signs were stable, she was afebrile, and it was felt that she could be discharged to home with plans to follow up with Dr. Lane on Sunday for Coumadin management. She was thus discharged to home on 05/04/2017. For further review, please see chart. LABORATORY AND X-RAY DATA: As per chart. DISCHARGE INSTRUCTIONS: The patient was discharged to home in satisfactory condition on 05/04/2017. DIET: Regular. ACTIVITY: Follow reverse total shoulder arthroplasty instructions and special care instructions as noted. Follow up with Dr. Delacruz in 12-14 days, take Coumadin as directed for the weekend, then see Dr. Lane for AFib management and blood work on Sunday. DISCHARGE MEDICATIONS: Acetaminophen 1000 mg p.o. q. 8 hours for 21 days, Zofran 8 mg p.o. q. 8 hours p.r.n. nausea, oxycodone 5-10 mg p.o. q. 4 hours p.r.n., warfarin 5 mg p.o. daily. Resume home meds as listed and continue medication section discharge medications. Stop taking black cohosh, echinacea, fish oil caplets, flaxseed, and goldenseal.
[2017-09-12] MEDS ORDERED: OMEG10007 PO (16:18)
[2017-09-12] MEDS ORDERED: FLAX100024 PO (16:18)
[2017-09-12] MEDS ORDERED: WARF5TAB7 PO (16:41)
[2017-09-12] MEDS ORDERED: ACET-1256 PO (16:41)
[2017-09-12] MEDS ORDERED: METO25TA56 PO (16:41)
[2017-09-12] MEDS ORDERED: WARF2.5T8 PO (16:41)
[2017-09-28] MEDS ORDERED: OXYC-57 PO (13:06)
== END 2017-05-04 10:55 | disposition home or self-care (01) | DRG 483 ==
LOC: C.ACU 09:49 → C.3E 10:52 → ENRESERV 15:57
PROVIDERS: ADMIT Orthopaedic Surgery Sports Medicine; ATTEND Orthopaedic Surgery Sports Medicine
PROC: 0RRJ00Z Replacement of Right Shoulder Joint with Reverse Ball and Socket Synthetic Substitute, Open Approach (ICD-10-PCS; principal; 2017-05-02 12:15)
PROC: 0LS30ZZ Reposition Right Upper Arm Tendon, Open Approach (ICD-10-PCS; principal; 2017-05-02 12:15)
DX: M19.011 Primary osteoarthritis, right shoulder (principal); E03.9 Hypothyroidism, unspecified; M75.101 Unspecified rotator cuff tear or rupture of right shoulder, not specified as traumatic; M54.30 Sciatica, unspecified side; I48.0 Paroxysmal atrial fibrillation; I10 Essential (primary) hypertension; I34.0 Nonrheumatic mitral (valve) insufficiency; K21.9 Gastro-esophageal reflux disease without esophagitis; F32.9 Major depressive disorder, single episode, unspecified; Z88.2 Allergy status to sulfonamides; Z88.8 Allergy status to other drugs, medicaments and biological substances; Z88.3 Allergy status to other anti-infective agents; Z80.9 Family history of malignant neoplasm, unspecified; Z82.49 Family history of ischemic heart disease and other diseases of the circulatory system; Z87.891 Personal history of nicotine dependence

== ENCOUNTER → 2017-05-21 | Outpatient (CLI) | payer OTHER ==
[~2017-05-21] MED LIST changes: -ACET-1256 PO; +ACET-24 PO; -ACETAMINOPHEN 500 MG TAB PO SCH; -BLAC160C PO; +CMD5 PO; -CeleBREX 200 MG CAP PO SCH; -DEXAMETHASONE 4 MG TAB PO SCH; -ECHI1CAP11 PO; -FAMOTIDINE 20 MG TAB PO SCH; -FLAX12003 PO; -GABAPENTIN 300 MG CAP PO SCH; -GOLD500C3 PO; -LACTATED RINGER'S 1000ML 1,000 ML IV SCH; -LACTATED RINGER'S 1000ML IV SCH; -METOCLOPRAMIDE HCL 10 MG TAB PO SCH; -OMEG10007 PO; +ONDA8TAB6 PO; -PATIENT'S WEIGHT NEEDED SCH; -ROPIVACAINE 0.5% 5 MG/ML 30 ML VIAL ONE; +RXC5 PO; -VANCOMYCIN INJ 1,200 MG in SODIUM CHLORIDE 0.9% 250ML 250 ML IV SCH
[2017-05-21 13:43] LABS: THYROID STIMULATING HORMONE 0.268 uIu/ml (0.300-4.500)
== END | disposition home or self-care (01) ==
LOC: C.LABMFLN 09:45
PROVIDERS: ATTEND Family Medicine
DX: E03.9 Hypothyroidism, unspecified (principal); I48.0 Paroxysmal atrial fibrillation

== ENCOUNTER → 2017-09-28 | Day surgery (SDC) | payer OTHER ==
[2017-09-12 16:11] VITALS: BMI 33.0
--- NOTE | 2017-09-27 19:13 | HISTORY & PHYSICAL EXAMINATION ---
DATE OF ADMISSION: 09/28/2017 CHIEF COMPLAINT: Chronic left shoulder pain. HISTORY OF PRESENT ILLNESS: This is a 67-year-old female patient of Dr. Canada, complaining of chronic left shoulder pain for approximately 1-2 months now. She had no significant injury. MRI reported impingement, acromioclavicular arthritis, rotator cuff tear and biceps tendinopathy. The patient wishes to proceed with a left shoulder arthroscopic subacromial decompression, distal clavicle excision, rotator cuff repair and biceps tenodesis. PAST MEDICAL HISTORY: Angina, congenital heart disease, congestive heart failure, atrial fibrillation, hypothyroidism and sciatica. SOCIAL HISTORY: Nonsmoker and nondrinker. FAMILY HISTORY: Noncontributory. REVIEW OF SYSTEMS: The patient complains of left shoulder chronic pain and decreased function. Otherwise, denies any shortness of breath, chest pain, nausea, vomiting or any other joint complaints. MEDICATIONS: Include; citalopram 10 mg one-half tablet daily, hydrochlorothiazide 25 mg daily, Synthroid 75 mcg daily, omeprazole 20 mg daily, metoprolol 25 mg b.i.d. and Coumadin 5 mg daily. She also uses Claritin, flaxseed oil, fish oil, calcium, Tylenol as needed and a menopausal supplement. PHYSICAL EXAMINATION: GENERAL: A well-developed and well-nourished 67-year-old female, in no acute distress. She is alert and oriented x3 and pleasant. HEENT: Normocephalic and atraumatic. Extraocular motions are intact. Pupils are equal and reactive to light. HEART: Regular rate and rhythm, no murmurs are appreciated. LUNGS: Clear. ABDOMEN: Soft and nontender, bowel sounds present. EXTREMITIES: Left shoulder reveals a range of motion of 160 degrees of forward elevation. She has 3/5 strength with external rotation. She has 5/5 strength with internal rotation. She has positive impingement maneuvering. NEUROLOGIC: Neurovascularly, she is intact in her left upper extremity. DIAGNOSES: Left shoulder impingement, rotator cuff tear and biceps tendinopathy. She also has a history of angina, congestive heart failure, hypothyroidism and sciatica. PLAN: The patient was advised of her diagnoses. Indications, risks, benefits and postop course have all been reviewed. The patient wished to proceed with a left arthroscopic shoulder subacromial decompression, distal clavicle excision, rotator cuff repair and possible biceps tenodesis. Necessary consent forms and preoperative testing clearances will be obtained.
[~2017-09-28] VITALS: Ht 157.5 cm; Wt 81.4 kg
[~2017-09-28] MED LIST changes: +ACET-1256 PO; -ACET-24 PO; +ATROPINE SULFATE 0.1 MG/ML 5ML SYR IV PRN; +CEFAZOLIN 2000MG IV PUSH 10 ML IV SCH; +CLINDAMYCIN 600 MG/54 ML D5W IV SCH; +CLINDAMYCIN IV 600 MG in DEXTROSE 5% 50ML 50 ML IV ONE; -CMD5 PO; +DEXAMETHASONE SOD INJ 4 MG/ML VIAL ONE; +EpHEDrine SULFATE INJ 50 MG/ML AMP IV PRN; +EpINEphrine HCL INJ 1 MG/ML 5ML SYRINGE ONE; +FENTANYL CITRATE INJ 50 MCG/1 ML 2 ML VIAL ONE; +FLAX100024 PO; +HYDROmorphone INJ 2 MG/ML SYR/VIAL IV PRN; +LACTATED RINGER'S 1000ML 1,000 ML IV SCH; +LIDOCAINE HCL 2% 2 ML VIAL (20MG/ML) ONE; -LPR25 PO; +METO25TA56 PO; +MIDAZOLAM HCL 1 MG/ML 2ML VIAL ONE; +MoRPHine SULFATE 2 MG/ML CARP IV PRN; +OMEG10007 PO; -ONDA8TAB6 PO; +ONDANSETRON INJ 2 MG/ML 2 ML VIAL IV PRN; +ONDANSETRON INJ 2 MG/ML 2 ML VIAL ONE; +OXYC-57 PO; +OXYCODONE/ACETAMINOPHEN 5-325 TAB PO PRN; +PHENYLEPHRINE 100MCG/ML 5ML SYR IV PRN; +PROPOFOL IV EMULSION 10 MG/ML 20 ML VIAL IV ONE; +ROCURONIUM BROMIDE 10 MG/ML 5 ML VIAL IV ONE; +ROPIVACAINE 0.5% 5 MG/ML 30 ML VIAL ONE; -RXC5 PO; +SODIUM CHLORIDE 0.9% 1000ML 1,000 ML IV SCH; +VANCOMYCIN 1GM/270ML NSS ONE; +WARF2.5T8 PO; +WARF5TAB7 PO
[2017-09-28 06:55] VITALS: BP 126/88; PULSE 64; TEMP 36.5; O2SAT 97; Ht 157.5 cm; Wt 81.4 kg
[2017-09-28 07:15] LABS: INR 1.2 (0.9-1.1); PARTIAL THROMBOPLASTIN RATIO 1.2; PROTHROMBIN TIME (PATIENT) 13.2 SECONDS (9.0-12.0)
--- NOTE | 2017-09-28 07:39 | History & Physical Bridge Note ---
H&P Re-Evaluation Bridge Note: I have examined the patient, reviewed the History & Physical and in the interval since the performance of the History & Physical I have noted the following changes of clinical significance: No changes noted
[2017-09-28 09:34] LABS: HEMATOCRIT 32.7 % (37-47); MEAN CELL VOLUME 96.5 fL (80-100); MEAN CORPUSCULAR HEMOGLOBIN 32.2 pg (25-34); PLATELET COUNT 234 K/uL (130-400); RED BLOOD COUNT 3.39 M/uL (4.2-5.4); WHITE BLOOD COUNT 4.06 K/uL (4.8-10.8)
[2017-09-28 09:41] LABS: MEAN CORPUSCULAR HGB CONC 33.3 g/dl (32-36)
[2017-09-28 09:49] LABS: BUN/CREATININE RATIO 34.5 (10-20); CREATININE 0.53 mg/dl (0.60-1.20); POTASSIUM 3.8 mmol/L (3.5-5.1)
--- NOTE | 2017-09-28 12:39 | [facility] Post Operative Brief Note ---
Immediate Operative Summary Operative Date Sep 28, 2017. Pre-Operative Diagnosis Left shoulder impingement,acj arthritis ,chronic rotator cuff tear and biceps tendinopathy Post-Operative Diagnosis chronic rotator cuff tear impingement and bursitis and acj arthritis normal biceps tendaon early djd oa humeral head Procedure(s) Performed Left Shoulder Arthroscopy, Subacrominal Decompression, Distal Clavicle Excision , Rotator Cuff Repair Surgeon Dr. Rigo Delacruz [employer] Leader Surgeon(s) Nita Ayala PA-C Estimated Blood Loss 30 ml Findings as above Specimens none per surgeon Anesthesia regional and general Complication(s) None Disposition Recovery Room / PACU
--- NOTE | 2017-09-28 13:09 | Discharge Instructions ---
Discharge Instructions Date of Service Sep 28, 2017. Visit Reason for Visit: Left Shoulder Impingement Syndrome, Osteoarthritis Discharge Discharge Diagnosis / Problem: LEFT SHOULDER ARTHROSCOPY WITH ROTATOR CUFF REPAIR Discharge Goals Goal(s): Decrease discomfort, Improve function, Increase independence Activity Recommendations Activity Limitations: per Instructions/Follow-up section Anesthesia . Post Anesthesia Instructions: If you have had General Anesthesia or IV Sedation: * Do not drive today. * Resume driving when surgeon permits. * Do not make important decisions or sign legal documents today. * Call surgeon for: 1. Temperature elevations greater than 101 degrees F. 2. Uncontrollable pain. 3. Excessive bleeding. 4. Persistent nausea and vomiting. 5. Medication intolerance (nausea, vomiting or rash). * For nausea and vomiting use only clear liquids such as: tea, soda, bouillon until nausea subsides, then gradually increase diet as tolerated. * If you have any concerns or questions, call your surgeon's office. If physician is unavailable and it is an emergency, call 911 or go to the nearest emergency room. . Instructions / Follow-Up Instructions / Follow-Up U DISCHARGE INSTRUCTIONS: ROTATOR CUFF REPAIR SELF CARE INSTRUCTIONS A. You are permitted to loosen your sling/immobilizer to move your elbow, wrist , and hand to prevent stiffness. You should use your well arm (good arm) to assist the operated extremity when trying to raise the arm away from the body, hygiene purposes. Do NOT actively try to use/engage your shoulder muscles in operative arm at this time. You should NOT do overhead activity, lifting, or attempt to reach behind your back. B. You may/may not be instructed to start Physical Therapy upon discharge depending upon the size and difficulty of the repair. You will be provided a prescription for therapy with specific restrictions, if needed, at time of discharge. - NO PT! C. At 48 hours post-operatively, you may change your dressing. (Leave white steri-strips intact if present). Use band-aids and change daily. You are allowed to shower at this time and get the incision area wet, but DO NOT soak or submerge incision area in water. (No baths, swimming pools, hot tubs) D. Do NOT apply soap or any ointment/lotions directly over incision. E. You may use ice as needed to operative shoulder SPECIAL CARE INSTRUCTIONS: VERY IMPORTANT TO READ AND REVIEW A. There are a few signs you need to watch for after you are home. Call [facility] at [phone] if you experience any of the following: a. Increased severe shoulder pain. Some pain is expected especially when you exercise b. Increased swelling in your shoulder or arm; pain or swelling in either upper extremity. (Note: swelling and stiffness is normal and expected for several weeks post op, depending on type of shoulder surgery you had). c. Any fluid or drainage from the incision; redness of the incision. d. Shortness of breath or chest pain. B. Please call [facility] at [phone] if you have any questions or concerns about your operation or recovery. C. Call your physician if: a. Temperature is greater than 101 degrees (F). b. Pain is not relieved by prescribed pain medications. c. Increase drainage or redness from incision. d. Unanswered questions or concerns. D. Pain Medication: a. You will be prescribed pain medication upon discharge that should last till your first post-operative appointment. b. If you experience nausea and/or skin rash, discontinue this medication and contact our office for an alternative medication. c. Caution- narcotic pain medication can cause constipation. FOLLOW UP VISIT: Please call [facility] at [phone] to schedule a follow up appointment 10-14 days from your surgery date. Diet Recommendations Recommended Home Diet: resume previous diet Procedures Procedures Performed: Left Shoulder Arthroscopy, Subacrominal Decompression, Distal Clavicle Excision , Rotator Cuff Repair Pending Studies Studies pending at discharge: no Medical Emergencies . Who to Call and When: Medical Emergencies: If at any time you feel your situation is an emergency, please call 911 immediately. . Non-Emergent Contact Non-Emergency issues call your: Surgeon . . "Provider Documentation" section prepared by Jovita Ayala. . [place] Drug Monitoring Program Search Results: patient reviewed within database, no issues identified
[2017-09-28 13:35] VITALS: BP 133/88; PULSE 56; TEMP 36.7; O2SAT 95
--- NOTE | 2017-09-28 13:40 | Anesthesiology Progress Note ---
Anesthesia Post Op Note Date & Time Sep 28, 2017 at 13:40 Vital Signs Pain Intensity: 1 Vital Signs Past 12 Hours Date Time Temp Pulse Resp B/P (MAP) Pulse Ox O2 Delivery O2 Flow Rate FiO2 09/28/17 13:29 36.4 57 16 109/63 97 Room Air 09/28/17 13:15 36.4 60 16 102/61 97 Room Air 09/28/17 13:05 60 16 106/66 97 Room Air 09/28/17 12:55 61 16 110/64 97 Room Air 09/28/17 12:46 36 63 16 100/73 97 Room Air 09/28/17 06:55 36.5 64 18 126/88 (101) 97 Room Air Notes Mental Status: alert / awake / arousable, participated in evaluation Pt Amnestic to Procedure: Yes Nausea / Vomiting: adequately controlled Pain: adequately controlled Airway Patency, RR, SpO2: stable & adequate BP & HR: stable & adequate Hydration State: stable & adequate Anesthetic Complications: no major complications apparent
[2017-09-28 14:05] VITALS: BP 117/74; PULSE 57; O2SAT 99
[2017-09-28 14:35] VITALS: BP 121/72; PULSE 56; TEMP 36.6; O2SAT 97
--- NOTE | 2017-09-28 16:00 | OPERATIVE REPORT ---
DATE OF OPERATION: 09/28/2017 INDICATION FOR PROCEDURE: The patient is a 67-year-old female who presents with chronic pain and weakness in her left shoulder. She has an MRI demonstrating a chronic thinning, rotator cuff tendinopathy, retracted rotator cuff tear, supraspinatus extending in toward the anterior infraspinatus. There is some possibility of biceps subluxation or tendinopathy. She has some AC joint arthritis and some impingement. PREOPERATIVE DIAGNOSES: Chronic left shoulder pain, rotator cuff tear, chronic impingement syndrome, acromioclavicular joint arthritis, biceps tendinopathy and subluxation biceps. POSTOPERATIVE DIAGNOSES: Chronic and V-shaped rotator cuff tear with retraction with rotator cuff tendinopathy with normal biceps. No subluxation. Normal subscapularis, normal glenoid labrum, minor humeral head, osteoarthritis, chronic subacromial bursitis, subacromial impingement and acromioclavicular joint arthritis. PROCEDURES: Left shoulder arthroscopic rotator cuff repair, arthroscopic subacromial decompression, distal clavicle excision and debridement. SURGEON: Dr. Delacruz. APARTMENT COMMUNITY MANAGER: SARINA Blunt. ANESTHESIA: Regional block and general. OPERATIVE PROCEDURE: The patient was taken to the operating room and anesthetized with regional block and general anesthetic. She was positioned on [facility] shoulder table in 70-degree beach chair position and the left shoulder was sterilely prepped and draped in usual sterile fashion. We used ChloraPrep. She had good range of motion and some ligamentous laxity with range of motion. Arthroscopy was started with an anterior portal in the rotator interval, posterior portal in the soft spot, and subsequent lateral and superior lateral portals were placed for suture anchor placement. Two incisions were made superior lateral. The following findings were noted. In the glenohumeral joint, she had normal labrum, negative peel back sign and normal biceps tendon. No subluxation of the biceps. No biceps tendinopathy. Normal subscapularis. A large retracted rotator cuff tear of the supraspinatus extending into the anterior infraspinatus. There was some undersurface fraying and flaps and there was thinning of the rotator cuff. Glenoid articular surface was normal. The humeral head had some minor fraying underneath the tear. The subacromial space revealed a large tear, it was thin and retracted and had V-shaped type tear. It was lax, somewhat stretched out rotator cuff tissue and thin and tendinopathic in appearance. I was able to mobilize it to the tuberosity, but could not be mobilized straight over without major dog ears and best pattern to repair the tendon would be to close the V with side to sides and repair the tendon at the bone. The patient had spurring laterally and anterolaterally, fraying in the CA ligament, all consistent with impingement. She had some arthritis in the AC joint with inferior spurs contributing to the impingement. There was chronic bursitis. In the glenohumeral joint, I debrided the undersurface of the rotator cuff. There was some minor synovitis around the sublabral foramen area and this was debrided. In the subacromial space, a thorough bursectomy was performed to remove all pathological bursa and fully visualize the cuff tear pattern. The periosteum and bursa was ablated on the undersurface of the acromion, ablated on the undersurface of the AC joint. The 5.5 bur was used to plane down the acromion to a type 1 shape and initially the undersurface of the distal clavicle 1 cm was resected to decompress the shoulder. Then the footprint of the supraspinatus and anterior infraspinatus was debrided down to bone. It was noted that during this debridement, she had very soft bone, we had to carefully try not to decorticate any of the bone because bone was very soft. We debrided from the articular margin all the way out to the lateral greater tuberosity to stimulating healing response and then to repair the tendon, I placed 2 [id number] sutures to close the V and then we placed an Ultrabraid tape through the thicker posterior tissue, posterior supraspinatus and anterior infraspinatus. Then I placed a double-loaded Healicoil anchor in the tuberosity footprint, more toward the anterior supraspinatus, so we could pull the cuff tear from posterior to anterior. Placed the sutures from that anchor around the tapes; using them as a rip-stop technique, tied the sutures down. The anchor went in easily and the bone was very soft, but the suture repair did hold with some gentle range of motion. Then I placed one more suture, another Ultrabraid suture through the anterior rotator interval tissue and one through the apex of the V, where there was a slight dog ear there and tried to capture some of that to lower the profile. Then those 2 sutures and the tapes were placed into a 5.5 footprint anchor which was placed in the typical location anterolaterally. I wanted to place the anchor. The bone was very soft and the anchor probably just pulled right out. At this point, I had to grasp the anchor with a suture grasper and individually pulled sutures out of the anchor and we were able to salvage the sutures. One of the sutures was frayed, so I used it as a shuttling suture for a new Ultrabraid suture. The tapes were in good condition. We had to find new bone that was better bone, so I had to debride down along the lateral greater tuberosity to a lower position, lower on the tuberosity, away from the previous hole where the old anchor had failed. I was able to get better bone in that location, noted by insertion of the awl. Then we went ahead and put another 5.5 anchor in there with the new suture and the old tape reloaded and this held satisfactorily, the screw was tightened and the excess tapes were cut off as well as the suture. The arm was taken through range of motion, the arm to side with rotation and there was no impingement and the repair was secure. Then I went ahead and removed the upper half of the 1 cm distal clavicle until we had a complete distal clavicle resection. We did get some bleeding from the arterial branch anteriorly. We did cauterize this. The portal sites were then closed with nylon sutures. Sterile dressings were applied and abduction pillow, sling immobilizer. SARINA Blunt was my human resources assistant manager. She functioned as human resources assistant manager throughout the procedure with arm positioning, instrument management, suture management and performed the closure and will participate in some of the postoperative care of the patient. I attest to the content of the Intraoperative Record and any orders documented therein. Any exception s are noted below.
== END | disposition home or self-care (01) ==
LOC: C.ACU 06:21
PROVIDERS: ATTEND Orthopaedic Surgery Sports Medicine
DX: M75.122 Complete rotator cuff tear or rupture of left shoulder, not specified as traumatic (principal); M75.52 Bursitis of left shoulder; M75.42 Impingement syndrome of left shoulder; M19.012 Primary osteoarthritis, left shoulder; Z79.899 Other long term (current) drug therapy; E03.9 Hypothyroidism, unspecified; I51.9 Heart disease, unspecified

== ENCOUNTER → 2017-11-13 | Outpatient (CLI) | payer OTHER ==
[~2017-11-13] MED LIST changes: -ACET-1256 PO; -ATROPINE SULFATE 0.1 MG/ML 5ML SYR IV PRN; -CEFAZOLIN 2000MG IV PUSH 10 ML IV SCH; -CLINDAMYCIN 600 MG/54 ML D5W IV SCH; -CLINDAMYCIN IV 600 MG in DEXTROSE 5% 50ML 50 ML IV ONE; -DEXAMETHASONE SOD INJ 4 MG/ML VIAL ONE; -EpHEDrine SULFATE INJ 50 MG/ML AMP IV PRN; -EpINEphrine HCL INJ 1 MG/ML 5ML SYRINGE ONE; -FENTANYL CITRATE INJ 50 MCG/1 ML 2 ML VIAL ONE; -HYDROmorphone INJ 2 MG/ML SYR/VIAL IV PRN; -LACTATED RINGER'S 1000ML 1,000 ML IV SCH; -LIDOCAINE HCL 2% 2 ML VIAL (20MG/ML) ONE; -MIDAZOLAM HCL 1 MG/ML 2ML VIAL ONE; -MoRPHine SULFATE 2 MG/ML CARP IV PRN; -ONDANSETRON INJ 2 MG/ML 2 ML VIAL IV PRN; -ONDANSETRON INJ 2 MG/ML 2 ML VIAL ONE; -OXYCODONE/ACETAMINOPHEN 5-325 TAB PO PRN; -PHENYLEPHRINE 100MCG/ML 5ML SYR IV PRN; -PROPOFOL IV EMULSION 10 MG/ML 20 ML VIAL IV ONE; -ROCURONIUM BROMIDE 10 MG/ML 5 ML VIAL IV ONE; -ROPIVACAINE 0.5% 5 MG/ML 30 ML VIAL ONE; -SODIUM CHLORIDE 0.9% 1000ML 1,000 ML IV SCH; -VANCOMYCIN 1GM/270ML NSS ONE
[2017-11-13 12:40] LABS: PROTHROMBIN TIME (PATIENT) 36.7 SECONDS (9.0-12.0)
[2017-11-13 12:43] LABS: INR 3.6 (0.9-1.1)
[2017-11-13 13:02] LABS: CHOLESTEROL/HDL RATIO 3.8
== END | disposition home or self-care (01) ==
LOC: C.LABMFLN 07:57
PROVIDERS: ATTEND Internal Medicine Cardiovascular Disease
DX: I48.0 Paroxysmal atrial fibrillation (principal); I10 Essential (primary) hypertension

== ENCOUNTER → 2017-12-03 | Outpatient (CLI) | payer OTHER ==
[2017-12-03 17:53] LABS: BASO % 0.5 %; BASO ABS # 0.02 K/uL (0-0.2); EOS ABS # 0.08 K/uL (0-0.5); HEMOGLOBIN 12.2 g/dL (12.0-16.0); IG# 0.01 K/uL (0.00-0.02); LYMPH % 37.9 %; LYMPH ABS # 1.54 K/uL (1.2-3.4); MEAN CELL VOLUME 98.9 fL (80-100); MEAN CORPUSCULAR HEMOGLOBIN 32.6 pg (25-34); MEAN PLATELET VOLUME 9.7 fL (7.4-10.4); MONO % 14.5 %; MONO ABS # 0.59 K/uL (0.11-0.59); NEUT % 44.9 %; NEUT ABS # 1.82 K/uL (1.4-6.5); PLATELET COUNT 369 K/uL (130-400); RED CELL DISTRIBUTION WIDTH SD 46.9 fL (36.4-46.3); WHITE BLOOD COUNT 4.06 K/uL (4.8-10.8)
== END | disposition home or self-care (01) ==
LOC: C.LABMFLN 15:00
PROVIDERS: ATTEND Family Medicine
DX: I48.0 Paroxysmal atrial fibrillation (principal); E03.9 Hypothyroidism, unspecified

== ENCOUNTER → 2018-02-14 | Outpatient (CLI) | payer OTHER ==
[~2018-02-14] MED LIST changes: +ACET-1256 PO; +APIX1TAB3 PO; +CALC600T37 PO; +ECHICAP PO; +OMEG120013 PO; +OPTIRAY 320 IV PRN
--- NOTE | 2018-02-14 13:54 | DIAGNOSTIC IMAGING REPORT ---
CT ABD/PELVIS IV AND ORAL CONT CLINICAL HISTORY: C18.9 Adenocarcinoma of [id number] COMPARISON STUDY: None. TECHNIQUE: Following the IV administration of 93 mL of Optiray-320, CT scan of the abdomen and pelvis was performed from the lung bases to the proximal femurs. Images are reviewed in the axial, sagittal, and coronal planes. IV contrast was administered without complication. A dose lowering technique was utilized adhering to the principles of ALARA. CT DOSE: 882.51 mGycm FINDINGS: Lower chest: There are mild dependent atelectatic changes Liver: There is mild hepatic steatosis. No focal masses are visualized. Gallbladder: The gallbladder is relatively contracted. There is borderline gallbladder wall thickening, wall hyperenhancement, and very subtle infiltration of the pericholecystic fat. Given the lack of reported pain, this is likely chronic. Please correlate with symptoms. Spleen: Normal in size and attenuation. Pancreas: There is an 8 mm cystic lesion within the pancreatic tail. There is no ductal dilatation. 12 month follow-up is recommended. Adrenal glands: Unremarkable. Kidneys: There is symmetric renal cortical enhancement. The kidneys are normal in size without hydronephrosis. Bowel: There are no transition zones to indicate bowel obstruction. There is no acute diverticulitis. There is no evidence of acute appendicitis. There is an area of circumferential bowel wall thickening within the proximal transverse colon, suspicious for neoplasm. There are small adjacent lymph nodes, none of which exceed 5 mm in diameter. Peritoneum: There is no intraperitoneal free air or abdominal ascites. Vasculature: The abdominal aorta is normal in course and caliber. Adenopathy: There is no evidence of pathologic adenopathy by size criteria Pelvic viscera: There is a solid-appearing 27 mm left ovarian nodule Skeletal structures: There are postsurgical changes present within the lumbar spine. There is a grade 1 spondylolisthesis of L3 on L4. IMPRESSION: 1. Circumferential soft tissue thickening/mass involving the proximal transverse colon suspicious for neoplasm. There are several adjacent lymph nodes within the mesentery, none of which exceeds 5 mm in diameter. 2. No evidence of hepatic metastasis 3. Borderline gallbladder wall thickening and subtle infiltration of the pericholecystic fat. This is of questionable acute clinical significance given the nondistended gallbladder and the lack of reported right upper quadrant symptoms 4. 8 mm cystic lesion within the pancreatic tail. While nonspecific this could represent a side branch IPMN. A 12 month follow-up MRI study is recommended 5. Solid appearing 27 mm left ovarian nodule Electronically signed by: Mark Monterroso M.D. 02/14/2018 1:53 PM Dictated Date/Time: 02/14/2018 1:44 PM
== END | disposition home or self-care (01) ==
LOC: C.CTS 11:27
PROVIDERS: ATTEND Surgery
DX: C18.9 Malignant neoplasm of colon, unspecified (principal)

== ENCOUNTER 2018-02-19 04:57 | Inpatient (IN) | payer OTHER ==
[2018-02-14 12:06] VITALS: BMI 34.0
--- NOTE | 2018-02-14 12:48 | PAT Medication Instructions ---
Service Date Feb 14, 2018. Current Home Medication List Acetaminophen (Tylenol), 2 TAB PO QD PRN for Pain Apixaban (Eliquis), 5 MG PO BID Calcium (Calcium), 1 TAB PO BID Citalopram Hydrobromide (Citalopram Hydrobromide), 10 MG PO QAM Echinacea-Goldenseal (Echinacea-Coon Seal), 1 TAB PO BID Flaxseed (Linseed) (Flaxseed Oil), 1,000 MG PO QAM Hydrochlorothiazide (Hctz), 25 MG PO QAM Levothyroxine Sodium (Levothyroxine Sodium), 1 TAB PO QAM Loratadine (Claritin), 10 MG PO QAM Metoprolol Tartrate (Lopressor) (Lopressor), 25 MG PO BID Multiple Vitamins W/ Minerals (Hair/Skin/Nails), 1 CAP PO BID Multivitamin (Multivitamin), 1 TAB PO QAM Killen-3 Fatty Acids (Fish Oil), 1 CAP PO QPM Omeprazole (Prilosec), 20 MG PO QAM Medication Instructions For Your Scheduled Surgery -Contact your prescriber/military technician for instructions for: Apixaban (Eliquis), 5 MG PO BID - Hold the following medications starting today: Echinacea-Goldenseal (Echinacea-Coon Seal), 1 TAB PO BID Flaxseed (Linseed) (Flaxseed Oil), 1,000 MG PO QAM Killen-3 Fatty Acids (Fish Oil), 1 CAP PO QPM - Hold the following medications the morning of surgery: Calcium (Calcium), 1 TAB PO BID Hydrochlorothiazide (Hctz), 25 MG PO QAM Loratadine (Claritin), 10 MG PO QAM Multiple Vitamins W/ Minerals (Hair/Skin/Nails), 1 CAP PO BID Multivitamin (Multivitamin), 1 TAB PO QAM - Take the following medications the morning of surgery with a sip of water: Acetaminophen (Tylenol), 2 TAB PO QD PRN for Pain (if needed, can be taken up to four hours before surgery) Citalopram Hydrobromide (Citalopram Hydrobromide), 10 MG PO QAM Levothyroxine Sodium (Levothyroxine Sodium), 1 TAB PO QAM Metoprolol Tartrate (Lopressor) (Lopressor), 25 MG PO BID Omeprazole (Prilosec), 20 MG PO QAM - Take the following medications as scheduled the night before surgery: Acetaminophen (Tylenol), 2 TAB PO QD PRN for Pain (if needed) Calcium (Calcium), 1 TAB PO BID Metoprolol Tartrate (Lopressor) (Lopressor), 25 MG PO BID Multiple Vitamins W/ Minerals (Hair/Skin/Nails), 1 CAP PO BID If you have any questions please call us at [phone] or [phone] or [phone]
[2018-02-14 13:23] LABS: BASO % 0.6 %; BASO ABS # 0.03 K/uL (0-0.2); EOS % 2.5 %; EOS ABS # 0.12 K/uL (0-0.5); HEMATOCRIT 31.6 % (37-47); HEMOGLOBIN 10.1 g/dL (12.0-16.0); IG# 0.01 K/uL (0.00-0.02); LYMPH % 31.3 %; LYMPH ABS # 1.51 K/uL (1.2-3.4); MEAN CELL VOLUME 92.9 fL (80-100); MEAN CORPUSCULAR HEMOGLOBIN 29.7 pg (25-34); MONO % 7.5 %; MONO ABS # 0.36 K/uL (0.11-0.59); NEUT % 57.9 %; PLATELET COUNT 396 K/uL (130-400); RED CELL DISTRIBUTION WIDTH CV 12.7 % (11.5-14.5); RED CELL DISTRIBUTION WIDTH SD 43.3 fL (36.4-46.3); WHITE BLOOD COUNT 4.83 K/uL (4.8-10.8)
[2018-02-14 13:42] LABS: CALCIUM 8.9 mg/dl (8.5-10.1); CREATININE 0.69 mg/dl (0.60-1.20); POTASSIUM 3.9 mmol/L (3.5-5.1)
[2018-02-19] VITALS (10 sets, daily range): BP systolic 102–125; BP diastolic 61–76; PULSE 60–83; TEMP 36.4–37; O2SAT 91–100; BMI 34.0
[~2018-02-19] VITALS: Ht 157.5 cm; Wt 85.2 kg
[~2018-02-19 04:57] MED LIST changes: -CALC500C70 PO; -OMEG10007 PO; -OPTIRAY 320 IV PRN; -OXYC-57 PO; -WARF2.5T8 PO; -WARF5TAB7 PO
[2018-02-19] MEDS ORDERED: LACTATED RINGER'S 1000ML 1,000 ML IV SCH (06:00)
[2018-02-19] MEDS ORDERED: LIDOCAINE HCL 2% 2 ML VIAL (20MG/ML) ONE (07:06)
[2018-02-19] MEDS ORDERED: MIDAZOLAM HCL 1 MG/ML 2ML VIAL ONE (07:06)
[2018-02-19] MEDS ORDERED: FENTANYL CITRATE INJ 50 MCG/1 ML 2 ML VIAL ONE ×2 (07:06→10:45)
[2018-02-19] MEDS ORDERED: PROPOFOL IV EMULSION 10 MG/ML 20 ML VIAL IV ONE (07:06)
[2018-02-19] MEDS ORDERED: DEXAMETHASONE SOD INJ 4 MG/ML VIAL ONE (07:06)
[2018-02-19] MEDS ORDERED: HYDROmorphone INJ 2 MG/ML SYR/VIAL ONE (07:06)
[2018-02-19] MEDS ORDERED: ONDANSETRON INJ 2 MG/ML 2 ML VIAL ONE (07:06)
--- NOTE | 2018-02-19 07:27 | History & Physical Bridge Note ---
H&P Re-Evaluation Bridge Note: I have examined the patient, reviewed the History & Physical and in the interval since the performance of the History & Physical I have noted the following changes of clinical significance: No changes noted family at bedside all questions answered
[2018-02-19] MEDS ORDERED: ACETAMINOPHEN 1000 MG/100 ML IV IV ONE (07:44)
[2018-02-19] MEDS ORDERED: LIDOCAINE/EPINEPHRINE 1% 20 ML VIAL ONE (07:47)
[2018-02-19] MEDS ORDERED: BUPIVACAINE 0.5 % 5 MG/1 ML MPF 30ML VIAL ONE (07:47)
[2018-02-19] MEDS ORDERED: CISATRACURIUM BESYLATE IV SOLN 2 MG/ML 10 ML VIAL ONE (09:27)
[2018-02-19] MEDS ORDERED: ROCURONIUM BROMIDE 10 MG/ML 5 ML VIAL IV ONE (09:27)
[2018-02-19] MEDS ORDERED: SUCCINYLCHOLINE CHLORIDE 20 MG/ML 10 ML VIAL IV ONE (09:27)
[2018-02-19] MEDS ORDERED: GLYCOPYRROLATE INJ 0.2 MG/ML VIAL ONE ×2 (09:35)
[2018-02-19] MEDS ORDERED: NEOSTIGMINE METHYLSULFATE 5 MG/5 ML SYR ONE (09:35)
--- NOTE | 2018-02-19 09:51 | [facility] Post Operative Brief Note ---
Immediate Operative Summary Operative Date Feb 19, 2018. Pre-Operative Diagnosis Adenocarcinoma of colon Post-Operative Diagnosis Adenocarcinoma of colon Procedure(s) Performed Laparoscopic Assisted Transverse Colon Resection Surgeon Dr Zimmerman Kaiako Kura [place] Surgeon(s) Aldo Hampton PA-C Estimated Blood Loss 26 cc Findings See Below lesion transverse colon Specimens Culture #1 cathed urine for culture and sensitivity A. Transverse colon long suture at middle colic artery Drains 1/4 inch sub cut Anesthesia Type General
[2018-02-19] MEDS ORDERED: HYDROmorphone INJ 0.5 MG/0.5 ML SYR IV PRN (10:15)
[2018-02-19] MEDS ORDERED: EpHEDrine SULFATE INJ 50 MG/ML AMP IV PRN (10:15)
[2018-02-19] MEDS ORDERED: ONDANSETRON INJ 2 MG/ML 2 ML VIAL IV PRN (10:15)
[2018-02-19] MEDS ORDERED: LABETALOL HCL IV 5 MG/ML 20ML IV PRN (10:15)
[2018-02-19] MEDS ORDERED: PROMETHAZINE HCL INJ 12.5 MG in SODIUM CHLORIDE 0.9% 50ML 50 ML IV PRN (10:15)
[2018-02-19] MEDS ORDERED: ATROPINE SULFATE 0.1 MG/ML 5ML SYR IV PRN (10:15)
[2018-02-19] MEDS ORDERED: NALOXONE HCL 0.4 MG/1 ML VIAL/CARP IV PRN (10:15)
[2018-02-19] MEDS ORDERED: FLUMAZENIL 0.1 MG/1 ML 10 ML VIAL IV PRN (10:15)
[2018-02-19] MEDS ORDERED: MoRPHine SULFATE 4 MG/ML 1 ML CARP\\VIAL IV PRN (10:30)
[2018-02-19] MEDS ORDERED: CEFAZOLIN SOD 1 GM VIAL ONE (10:38)
--- NOTE | 2018-02-19 11:07 | OPERATIVE REPORT ---
DATE OF OPERATION: 02/19/2018 SURGEON: Dr. Zimmerman. [employer]: [place] Hampton PA-C. PREOPERATIVE DIAGNOSIS: Biopsy-proven adenocarcinoma, 60 cm from the anal verge. POSTOPERATIVE DIAGNOSIS: Transverse colon adenocarcinoma. PROCEDURE: Laparoscopic-assisted transverse colon resection with primary end-to-end anastomosis. SUMMARY: After induction of general endotracheal anesthesia, the patient's abdomen was prepped with Betadine solution and properly draped. A Marks catheter had been inserted. We made a small incision linearly supraumbilically, sufficient enough to place a Veress needle, followed by a 5 mm trocar. Point of entry inspected and no injury identified. At this point, we tried to localize the area that was tattooed at 60 cm. We were not sure exactly what it was. We then at this point placed a 5 mm left upper quadrant and 5 mm right lower quadrant port. We could see the tattoo camargo onto the parietal peritoneum in multiple areas as splash camargo but could not see anything definitive. We started at the descending colon, went up and mobilized the splenic flexure to visualize that area. We then did not see anything specific. Finally, as we were moving, we elevated the greater omentum and were able to identify a tattoo sathish, mostly confined just outside the wall of the mid transverse colon. We inspected other areas, there was no other evidence of any other tattoos, therefore, we felt that this was the area, and by manipulating of the instruments, we could feel some resistance in the wall. There was no true dimpling of the colon itself but might be some induration by palpation. At this point, we then had enough mobility that we elected to make a small incision in an epigastric area deep into subcutaneous tissue. We took down the greater curvature omentum all the way down to the splenic flexure, immobilized it and the hepatic flexure. We then resected the transverse colon just beyond the hepatic flexure with a DEREK stapler, and similarly just proximal to the splenic flexure, we resected the transverse colon with another DEREK stapler. We then elevated the mesentery to this and took it down all the way down to the middle colic artery, ligating the mesentery as we went down until we found the apex of the middle colic artery. This was done with 2-0 silk ties. The specimen was then removed and sent for permanent. We could palpate at the end that this was a mass just proximal to the tattoo, somewhat linear in nature. There were no palpable lymph nodes. We then at this point did close the mesentery with interrupted 3-0 silk suture and proceeded to do an end-to-end anastomosis would lend itself very easy at this time. We placed 3-0 silk outer layer and 3-0 chromic inner layer in continuous fashion and reinforced the area again with 3-0 silk. We palpated the anastomosis and could accommodate tip of 2 fingers. The mesentery was closed. There was no evidence of any opening in the mesentery as we had closed it. The area was checked for hemostasis and appeared satisfactory. We then closed the abdomen with #1 PDS [id number], quarter-inch Diana subcu, terri for skin edges, closing the trocar site similarly with terri. The procedure was tolerated well by the patient. Estimated blood loss approximately 45 mL. The patient was taken to recovery room in good condition. I attest to the content of the Intraoperative Record and any orders documented therein. Any exception s are noted below.
--- NOTE | 2018-02-19 11:45 | Anesthesiology Progress Note ---
Anesthesia Post Op Note Date & Time Feb 19, 2018 at 11:45 Vital Signs Pain Intensity: 0 Vital Signs Past 12 Hours Date Time Temp Pulse Resp B/P (MAP) Pulse Ox O2 Delivery O2 Flow Rate FiO2 02/19/18 11:30 36.5 54 14 112/66 (72) 99 Nasal Cannula 2 02/19/18 11:15 56 14 118/70 (88) 100 Nasal Cannula 2 02/19/18 11:00 58 14 120/70 (81) 98 Nasal Cannula 2 02/19/18 10:50 59 13 120/67 (94) 98 Nasal Cannula 2 02/19/18 10:40 57 16 117/73 (89) 99 Nasal Cannula 2 02/19/18 10:30 76 17 117/61 (92) 100 Oxymask 10 02/19/18 10:20 66 18 131/78 (99) 100 Oxymask 10 02/19/18 10:10 36.3 70 8 132/77 100 Oxymask 10 02/19/18 05:36 94 Room Air Notes Mental Status: alert / awake / arousable, participated in evaluation Pt Amnestic to Procedure: Yes Nausea / Vomiting: adequately controlled Pain: adequately controlled Airway Patency, RR, SpO2: stable & adequate BP & HR: stable & adequate Hydration State: stable & adequate Anesthetic Complications: no major complications apparent
--- NOTE | 2018-02-19 12:26 | CARDIOLOGY PROGRESS NOTE ---
DATE: 02/19/2018 SUBJECTIVE: Mrs. Porter is seen in the PACU at the request of Dr. Albarran. She denies chest pain and dyspnea. OBJECTIVE: VITAL SIGNS: Blood pressure is 112/66 with a regular pulse of 56. Respiratory rate is 16. The patient is afebrile at 36.5 degrees Celsius, saturation 99% on 2 liters nasal cannula. NECK: Supple with full carotid upstrokes. No carotid bruits. Jugular venous pressure is flat at 90 degrees. There is no thyromegaly. CARDIOVASCULAR: Reveals a regular rhythm with normal S1, S2. No S3, S4, or murmurs are noted. LUNGS: Clear without rales, rhonchi, or wheezes. ABDOMEN: Obese. Dressing is intact. EXTREMITIES: Reveal intact radial pulses bilaterally. There is no peripheral edema. DATA: ECG performed in the PACU notes normal sinus rhythm with a first degree AV block and an anterior T-wave abnormality. This is not significantly changed from tracings done during her normal stress echocardiogram in March 2017. IMPRESSION AND PLAN: 1. Abnormal electrocardiogram -- as above, her current tracing is similar to one performed during normal stress echocardiogram in March 2017. She is completely asymptomatic from a cardiac perspective. No further cardiac workup indicated at this time. Stable for admission to the medical/surgical floor. 2. Paroxysmal atrial fibrillation -- patient typically on Eliquis and metoprolol tartrate. Anticoagulation can be restarted once she is stable from a surgical perspective. Of note, she did develop atrial fibrillation in the postoperative setting back in April 2017. 3. Hypertension -- controlled. 4. Mild mitral regurgitation -- on echocardiogram - April 2017. 5. Hypothyroidism. 6. Gastroesophageal reflux disease. 7. Degenerative joint disease. 8. Osteoporosis. 9. History of narcolepsy.
[2018-02-19 13:41] LABS: PTT PATIENT 25.1 SECONDS (21.0-31.0)
[2018-02-19] MEDS: ACETAMINOPHEN IV 100 ML IV SCH ×2 (14:33→23:27)
[2018-02-19] MEDS: LACTATED RINGER'S 1000ML 1,000 ML IV SCH ×2 (14:33→21:55)
[2018-02-19] MEDS: CEFOXITIN IV 2,000 MG in DEXTROSE 5% 50ML 50 ML IV SCH ×2 (14:34→21:55)
[2018-02-19] MEDS: HEPARIN SOD 5000 UNIT/0.5 ML CARP SQ SCH ×2 (15:50→22:44)
[2018-02-19] MEDS: METOPROLOL TARTRATE 25 MG TAB PO SCH (21:54)
[2018-02-20] VITALS (7 sets, daily range): BP systolic 125–136; BP diastolic 74–79; PULSE 70–82; TEMP 36.5–37.1; O2SAT 91–95; Ht 157.5 cm; Wt 85.2 kg
[2018-02-20] MEDS: LACTATED RINGER'S 1000ML 1,000 ML IV SCH ×3 (04:17→22:20)
[2018-02-20] MEDS: HEPARIN SOD 5000 UNIT/0.5 ML CARP SQ SCH ×3 (06:00→22:29)
[2018-02-20] MEDS: LEVOTHYROXINE 75 MCG TAB PO SCH (06:00)
--- NOTE | 2018-02-20 07:50 | Surgery Progress Note ---
Surgery Progress Note Date of Service Feb 20, 2018. Subjective Post OP Day: 1 + feeling well, + ambulating, + pain controlled, No flatus, No nausea Objective Vital Signs: Date Time Temp Pulse Resp B/P (MAP) Pulse Ox O2 Delivery O2 Flow Rate FiO2 02/20/18 07:09 36.9 74 19 136/79 (98) 94 Room Air 02/20/18 03:14 37.1 82 15 136/74 (94) 91 Room Air 02/19/18 23:52 37.0 76 15 125/73 (90) 93 Room Air 02/19/18 23:15 Room Air 02/19/18 22:01 80 117/73 (88) 02/19/18 19:01 36.6 83 18 125/75 (92) 91 Room Air 02/19/18 15:15 100 Nasal Cannula 1.0 02/19/18 14:59 36.6 74 16 120/76 (91) 100 Nasal Cannula 1.0 02/19/18 14:20 66 20 103/67 (79) 99 Nasal Cannula 2.0 02/19/18 13:20 62 18 105/69 (81) 99 Nasal Cannula 2.0 02/19/18 12:50 36.4 62 17 105/61 (76) 98 Room Air 02/19/18 12:20 Nasal Cannula 2.0 02/19/18 12:20 Nasal Cannula 2.0 02/19/18 12:20 36.4 60 18 102/68 (79) 94 Nasal Cannula 2.0 02/19/18 12:00 54 15 106/65 98 Nasal Cannula 2 02/19/18 11:45 56 14 98/68 (82) 98 Nasal Cannula 2 02/19/18 11:30 36.5 54 14 112/66 (72) 99 Nasal Cannula 2 02/19/18 11:15 56 14 118/70 (88) 100 Nasal Cannula 2 02/19/18 11:00 58 14 120/70 (81) 98 Nasal Cannula 2 02/19/18 10:50 59 13 120/67 (94) 98 Nasal Cannula 2 02/19/18 10:40 57 16 117/73 (89) 99 Nasal Cannula 2 02/19/18 10:30 76 17 117/61 (92) 100 Oxymask 10 02/19/18 10:20 66 18 131/78 (99) 100 Oxymask 10 02/19/18 10:10 36.3 70 8 132/77 100 Oxymask 10 Physical Exam: urine output (900) Abdomen: non distended, soft Incision(s): clean, dry Laboratory Results: Results Past 24 Hours Test 02/19/18 11:08 02/19/18 13:13 02/20/18 07:14 Range/Units Troponin I < 0.015 0-0.045 ng/ml Prothrombin Time 10.7 9.0-12.0 SECONDS Prothromb Time International Ratio 1.0 0.9-1.1 Activated Partial Thromboplast Time 25.1 21.0-31.0 SECONDS Partial Thromboplastin Ratio 1.0 Microbiology Results 02/19/18 Urine Culture, Received Pending Assessment & Plan s/p transverse colectomy can have clears will decrease IV too 100 cc/hr labs pending d/c seo seen with Dr. Zimmerman
[2018-02-20 07:55] LABS: HEMOGLOBIN 8.8 g/dL (12.0-16.0); IG# 0.01 K/uL (0.00-0.02); LYMPH % 16.1 %; LYMPH ABS # 1.13 K/uL (1.2-3.4); MEAN CELL VOLUME 90.9 fL (80-100); MEAN CORPUSCULAR HEMOGLOBIN 29.6 pg (25-34); MEAN CORPUSCULAR HGB CONC 32.6 g/dl (32-36); MONO % 12.4 %; MONO ABS # 0.87 K/uL (0.11-0.59); NEUT % 71.4 %; PLATELET COUNT 352 K/uL (130-400); RED CELL DISTRIBUTION WIDTH CV 12.8 % (11.5-14.5); RED CELL DISTRIBUTION WIDTH SD 42.4 fL (36.4-46.3); WHITE BLOOD COUNT 7.01 K/uL (4.8-10.8)
[2018-02-20 08:19] LABS: CALCIUM 8.4 mg/dl (8.5-10.1); CREATININE 0.66 mg/dl (0.60-1.20); POTASSIUM 3.5 mmol/L (3.5-5.1)
[2018-02-20] MEDS: PANTOprazole SOD 40 MG TAB PO SCH (09:05)
[2018-02-20] MEDS: METOPROLOL TARTRATE 25 MG TAB PO SCH ×2 (09:05→20:53)
[2018-02-20] MEDS: ACETAMINOPHEN IV 100 ML IV SCH (09:05)
--- NOTE | 2018-02-20 10:41 | Anesthesiology Progress Note ---
Anesthesia Post Op Note Date & Time Feb 20, 2018 at 10:41 Vital Signs Pain Intensity: 0.0 Vital Signs Past 12 Hours Date Time Temp Pulse Resp B/P (MAP) Pulse Ox O2 Delivery O2 Flow Rate FiO2 02/20/18 07:09 36.9 74 19 136/79 (98) 94 Room Air 02/20/18 03:14 37.1 82 15 136/74 (94) 91 Room Air 02/19/18 23:52 37.0 76 15 125/73 (90) 93 Room Air 02/19/18 23:15 Room Air Notes Mental Status: alert / awake / arousable, participated in evaluation Pt Amnestic to Procedure: Yes Nausea / Vomiting: adequately controlled Pain: adequately controlled Airway Patency, RR, SpO2: stable & adequate BP & HR: stable & adequate Hydration State: stable & adequate Anesthetic Complications: no major complications apparent
[2018-02-20] MEDS: ONDANSETRON INJ 2 MG/ML 2 ML VIAL IV PRN (20:04)
[2018-02-21] MEDS: ONDANSETRON INJ 2 MG/ML 2 ML VIAL IV PRN ×2 (00:45→14:44)
[2018-02-21] MEDS: LEVOTHYROXINE 75 MCG TAB PO SCH (05:49)
[2018-02-21] MEDS: HEPARIN SOD 5000 UNIT/0.5 ML CARP SQ SCH ×3 (05:50→22:28)
[2018-02-21 06:21] LABS: BASO % 0.1 %; BASO ABS # 0.01 K/uL (0-0.2); EOS % 0.1 %; EOS ABS # 0.01 K/uL (0-0.5); HEMOGLOBIN 8.5 g/dL (12.0-16.0); IG# 0.02 K/uL (0.00-0.02); LYMPH % 16.7 %; LYMPH ABS # 1.15 K/uL (1.2-3.4); MEAN CELL VOLUME 92.2 fL (80-100); MEAN CORPUSCULAR HGB CONC 31.5 g/dl (32-36); MONO % 8.9 %; MONO ABS # 0.61 K/uL (0.11-0.59); NEUT % 73.9 %; NEUT ABS # 5.07 K/uL (1.4-6.5); PLATELET COUNT 324 K/uL (130-400); RED CELL DISTRIBUTION WIDTH CV 12.5 % (11.5-14.5); WHITE BLOOD COUNT 6.87 K/uL (4.8-10.8)
[2018-02-21 06:46] LABS: CALCIUM 8.1 mg/dl (8.5-10.1); CREATININE 0.62 mg/dl (0.60-1.20); POTASSIUM 3.7 mmol/L (3.5-5.1)
[2018-02-21 07:22] VITALS: BP 142/86; PULSE 75; TEMP 37.1; O2SAT 91
[2018-02-21] MEDS ORDERED: OXYCODONE/ACETAMINOPHEN 5-325 TAB PO PRN (07:30)
[2018-02-21] MEDS: LACTATED RINGER'S 1000ML 1,000 ML IV SCH ×2 (07:58→12:44)
[2018-02-21] MEDS: METOPROLOL TARTRATE 25 MG TAB PO SCH ×2 (08:25→21:34)
[2018-02-21] MEDS: PANTOprazole SOD 40 MG TAB PO SCH (08:25)
[2018-02-21 16:11] VITALS: BP 126/75; PULSE 100; TEMP 37; O2SAT 95
[2018-02-21 23:03] VITALS: BP 146/71; PULSE 71; TEMP 37.1; O2SAT 93
[2018-02-22] MEDS: LACTATED RINGER'S 1000ML 1,000 ML IV SCH (02:27)
[2018-02-22] MEDS: LEVOTHYROXINE 75 MCG TAB PO SCH (05:54)
[2018-02-22] MEDS: HEPARIN SOD 5000 UNIT/0.5 ML CARP SQ SCH (05:55)
[2018-02-22 07:36] VITALS: BP 136/84; PULSE 68; TEMP 36.6; O2SAT 95
--- NOTE | 2018-02-22 07:46 | Surgery Progress Note ---
Surgery Progress Note Date of Service Feb 22, 2018. Subjective Post OP Day: 3 + feeling well, + ambulating, + bowel movement, + flatus, + pain controlled, + diet (Tolerating full liquids), No complaints, No nausea, No vomiting Objective Vital Signs: Date Time Temp Pulse Resp B/P (MAP) Pulse Ox O2 Delivery O2 Flow Rate FiO2 02/22/18 07:36 36.6 68 20 136/84 (101) 95 Room Air 02/21/18 23:45 Room Air 02/21/18 23:03 37.1 71 16 146/71 (96) 93 Room Air 02/21/18 16:11 37.0 100 16 126/75 (92) 95 Room Air 02/21/18 15:23 Room Air General Appearance: WD/WN, no apparent distress Head: normocephalic, atraumatic Respiratory/Chest: no respiratory distress, no accessory muscle use Abdomen: non distended, soft, no organomegaly, no pulsatile mass, + tenderness (epigastric mild) Incision(s): clean, dry, intact, no erythema, drainage (minimal incisional drainage into bandage, serosang.) Laboratory Results: Results Past 24 Hours Test 02/22/18 04:44 Range/Units Assessment & Plan POD #3 s/p Laparoscopic-assisted transverse colon resection with primary end-to- end anastomosis. doing well, abdomen soft, non-distended, mild epigastric tenderness above incision line. No complaints. Multiple loose BM overnight, +Flatus. Tolerating full liquids, No N/V. Will try low-fiber diet and see how she tolerates. Will remove Diana today. Possible d/c today if she tolerates diet and continues to do well. Will discuss findings with Dr. Zimmerman. Please contact with questions or concerns.
--- NOTE | 2018-02-22 08:00 | Discharge Instructions ---
Discharge Instructions Date of Service Feb 22, 2018. Admission Reason for Admission: Adenocarcinoma Of Colon Discharge Discharge Diagnosis / Problem: Adenocarcinoma of Colon Discharge Goals Goal(s): Decrease discomfort, Improve function Activity Recommendations Activity Limitations: as noted below Lifting Limitations: no more than 10 pounds, until after follow-up appointment Exercise/Sports Limitations: until after follow-up appointment May Resume Sexual Activity: after follow-up appointment Shower/Bathe: tomorrow Driving or Machine Use: resume 3 days after discharge (Please do not drive while using narcotic pain medication) . Instructions / Follow-Up Instructions / Follow-Up Please follow-up with Dr. Zimmerman in 1 week. Contact our office at [phone] to schedule an appointment if you have not done so already. Please contact our office with any further questions of concerns. [facility] [employer]. [address] [place] [address]. Current Hospital Diet Patient's current hospital diet: Low Fiber Diet Discharge Diet Recommended Diet: Regular Diet Procedures Procedures Performed: Laparoscopic Assisted Transverse Colon Resection Pending Studies Studies pending at discharge: yes List of pending studies: pathology Medical Emergencies . Who to Call and When: Medical Emergencies: If at any time you feel your situation is an emergency, please call 911 immediately. . Non-Emergent Contact Non-Emergency issues call your: Primary Care Provider, Surgeon Call Non-Emergent contact if: you have a fever, temperature is above 101.5, your pain is not controlled, your pain is worsening, wound has increased drainage, wound has increased redness . "Provider Documentation" section prepared by Jose Mills. . [place] Drug Monitoring Program Search Results: patient reviewed within database, no issues identified
[2018-02-22] MEDS: PANTOprazole SOD 40 MG TAB PO SCH (08:20)
[2018-02-22] MEDS: METOPROLOL TARTRATE 25 MG TAB PO SCH (08:20)
[2018-02-22 08:34] LABS: BASO % 0.1 %; BASO ABS # 0.01 K/uL (0-0.2); EOS % 1.5 %; EOS ABS # 0.11 K/uL (0-0.5); HEMATOCRIT 27.2 % (37-47); HEMOGLOBIN 8.8 g/dL (12.0-16.0); IG# 0.02 K/uL (0.00-0.02); LYMPH % 20.2 %; LYMPH ABS # 1.48 K/uL (1.2-3.4); MEAN CELL VOLUME 91.3 fL (80-100); MEAN CORPUSCULAR HEMOGLOBIN 29.5 pg (25-34); MEAN CORPUSCULAR HGB CONC 32.4 g/dl (32-36); MEAN PLATELET VOLUME 9.1 fL (7.4-10.4); MONO % 12.3 %; NEUT % 65.6 %; NEUT ABS # 4.79 K/uL (1.4-6.5); PLATELET COUNT 303 K/uL (130-400); RED CELL DISTRIBUTION WIDTH CV 12.5 % (11.5-14.5); RED CELL DISTRIBUTION WIDTH SD 42.2 fL (36.4-46.3); WHITE BLOOD COUNT 7.31 K/uL (4.8-10.8)
[2018-02-22 08:44] VITALS: O2SAT 95
[2018-02-22 09:02] LABS: CALCIUM 8.4 mg/dl (8.5-10.1); CREATININE 0.64 mg/dl (0.60-1.20); POTASSIUM 3.4 mmol/L (3.5-5.1)
--- NOTE | 2018-02-22 10:31 | SURGERY PROGRESS NOTE ---
DATE: 02/22/2018 Chandni is up and around. She showered. She is ready to go home. She is moving her bowels. She is not having any real abdominal discomfort. Last vitals showed a temperature of 36.6, pulse 68, respiration 20, blood pressure 136/84, O2 sats 95 on room air. She had 2 bowel movements yesterday and 2 this morning. The Diana drain has been removed. Pathology still pending. From our point of view, she can be discharged. We will see her back in the office in 1 week. Instructions were given regarding wound care, diet, activity and meds.
[2018-02-22 10:41] VITALS: BP 136/84; PULSE 68; TEMP 36.6; O2SAT 95
== END 2018-02-22 13:03 | disposition home or self-care (01) | DRG 331 ==
LOC: C.ACU 04:57 → C.MSN 06:35 → ENRESERV 11:11
PROVIDERS: ADMIT Surgery; ATTEND Surgery
PROC: 0DTL0ZZ Resection of Transverse Colon, Open Approach (ICD-10-PCS; principal; 2018-02-19 07:15)
DX: C18.4 Malignant neoplasm of transverse colon (principal); I48.0 Paroxysmal atrial fibrillation; E03.9 Hypothyroidism, unspecified; K21.9 Gastro-esophageal reflux disease without esophagitis; Z79.01 Long term (current) use of anticoagulants; Z79.899 Other long term (current) drug therapy

== ENCOUNTER → 2018-03-08 | Outpatient (CLI) | payer OTHER | END | disposition home or self-care (01) | LOC: C.LABMFLN 09:52 | PROVIDERS: ATTEND Family Medicine | DX: N83.9 Noninflammatory disorder of ovary, fallopian tube and broad ligament, unspecified (principal) ==

== ENCOUNTER → 2018-03-12 | Outpatient (CLI) | payer OTHER ==
--- NOTE | 2018-03-12 13:36 | DIAGNOSTIC IMAGING REPORT ---
ULTRASOUND OF THE PELVIS CLINICAL HISTORY: Follow-up ovarian lesion. COMPARISON STUDY: Pelvic CT dated 02/14/2018. TECHNIQUE: Real-time, grayscale, and color flow sonography of the pelvis is performed both transabdominally and endovaginally. Images are reviewed in the transverse and longitudinal planes. FINDINGS: Uterus: The uterus is normal in size and heterogeneous in echotexture, measuring 6.7 x 2.7 x 3.7 cm. Endometrium: The endometrium is normal in appearance, and the endometrial stripe is normal in thickness measuring up to 0.4 cm. Trace fluid is present within the endometrial canal in the fundal region. Ovaries: The ovaries were not visualized on the transabdominal or endovaginal images. Pelvis: There is no free fluid in the cul-de-sac. No concerning adnexal lesion is seen. IMPRESSION: 1. The endometrial stripe is top normal in thickness measuring up to 4 mm. 2. Trace fluid within the endometrial canal is likely related to atrophy. 3. The ovaries were not visualized. The cystic focus seen in the left ovary by CT remains indeterminant. Electronically signed by: Dionte Paz M.D. 03/12/2018 1:34 PM Dictated Date/Time: 03/12/2018 1:32 PM
== END | disposition home or self-care (01) ==
LOC: C.ULTR 12:29
PROVIDERS: ATTEND Family Medicine
DX: N83.9 Noninflammatory disorder of ovary, fallopian tube and broad ligament, unspecified (principal)

== ENCOUNTER → 2018-03-18 | Outpatient (CLI) | payer OTHER ==
[2018-03-18 13:09] LABS: BLOOD UREA NITROGEN 18 mg/dl (7-18); CREATININE 0.69 mg/dl (0.60-1.20)
== END | disposition home or self-care (01) ==
LOC: C.LABMFLN 10:35
PROVIDERS: ATTEND Family Medicine
DX: I10 Essential (primary) hypertension (principal); N83.9 Noninflammatory disorder of ovary, fallopian tube and broad ligament, unspecified

== ENCOUNTER → 2018-03-22 | Outpatient (CLI) | payer OTHER ==
[~2018-03-22] MED LIST changes: +GADAVIST IV PRN
--- NOTE | 2018-03-22 09:32 | DIAGNOSTIC IMAGING REPORT ---
Study: MRI pelvis. HISTORY: Ovarian nodule Prior studies: CT abdomen and pelvis 02/14/2018. Pelvic ultrasound 03/12/2018. FINDINGS: Uterus is anteflexed. 2.7 x 2.6 cm solid appearing nodule of the left ovary. This shows minimal postcontrast enhancement with a mild peripheral right of increased signal area Differential considerations include a fibrous type tumor of the ovary versus true neoplasm. No significant pelvic adenopathy. Bowel pattern is nonobstructive. The central uterine canal appears to be unremarkable. Junctional zone is intact. Osseous structures show unremarkable signal characteristics. The vascular structures are intact throughout with normal flow voids. IMPRESSION: 1. 2.7 x 2.6 cm solid nodule of the left ovary. 2. A neoplastic process must be considered 3. Surgical consult is recommended for potential removal. 4. Remainder of the pelvis is unremarkable. Electronically signed by: Dany Cyr M.D. 03/22/2018 9:31 AM Dictated Date/Time: 03/22/2018 9:14 AM
== END | disposition home or self-care (01) ==
LOC: C.MRI 07:27
PROVIDERS: ATTEND Family Medicine
DX: N83.8 Other noninflammatory disorders of ovary, fallopian tube and broad ligament (principal)

== ENCOUNTER 2020-08-11 08:55 | Observation (INO) ==
--- NOTE | 2020-07-14 13:22 | PAT Medication Instructions ---
Medication Instructions Date of Service July 14, 2020 Home Medications Medication Instructions Recorded acetaminophen 500 mg tablet 1,000 mg PO QID PRN #100 tab 07/07/20 apixaban 5 mg tablet 5 mg PO BID #180 tab 07/07/20 budesonide 180 mcg/actuation 2 inh INHALATION BID #3 inhaler 07/07/20 breath activated powder inhaler calcium carbonate 600 mg calcium 600 mg PO BID #180 tab 07/07/20 (1,500 mg) tablet metoprolol tartrate 25 mg tablet 25 mg PO BID #180 tab 07/07/20 herbal complex no.174 450 mg capsule 450 mg PO BID flaxseed oil 1,000 mg PO HS acetaminophen 500 mg tablet 1,000 mg PO QID PRN apixaban 5 mg tablet 5 mg PO BID budesonide 180 mcg/actuation breath activated powder inhaler 2 inh INHALATION BID calcium carbonate 600 mg calcium (1,500 mg) tablet 600 mg PO BID metoprolol tartrate 25 mg tablet 25 mg PO BID citalopram 10 mg PO QAM fexofenadine 180 mg PO QAM hydrochlorothiazide 25 mg PO QAM levothyroxine 88 mcg PO QAM multivitamin 1 tab PO QAM omega-3 fatty acids [Fish Oil Concentrate] 1,000 mg PO QAM omeprazole 20 mg PO QAM ASK your prescriber and surgeon apixaban 5 mg tablet 5 mg PO BID (in order for spinal anesthesia, Apixaban/Eliquis needs to be stopped 72 hours before surgery. Please check if okay with doctor that prescribes this to you) STOP taking 2 weeks before surgery (or as soon as possible if surgery is within 2 weeks) herbal complex no.174 450 mg capsule 450 mg PO BID flaxseed oil 1,000 mg PO HS omega-3 fatty acids [Fish Oil Concentrate] 1,000 mg PO QAM DO NOT take the morning of surgery calcium carbonate 600 mg calcium (1,500 mg) tablet 600 mg PO BID fexofenadine 180 mg PO QAM hydrochlorothiazide 25 mg PO QAM multivitamin 1 tab PO QAM Take morning of surgery With a small sip of water, OTHERWISE NOTHING TO EAT OR DRINK AFTER MIDNIGHT: acetaminophen 500 mg tablet 1,000 mg PO QID PRN (okay to take up to 4 hours prior to surgery if needed) budesonide 180 mcg/actuation breath activated powder inhaler 2 inh INHALATION BID metoprolol tartrate 25 mg tablet 25 mg PO BID citalopram 10 mg PO QAM levothyroxine 88 mcg PO QAM omeprazole 20 mg PO QAM Take evening before surgery acetaminophen 500 mg tablet 1,000 mg PO QID PRN (if needed) budesonide 180 mcg/actuation breath activated powder inhaler 2 inh INHALATION BID calcium carbonate 600 mg calcium (1,500 mg) tablet 600 mg PO BID metoprolol tartrate 25 mg tablet 25 mg PO BID Other Notes If you have any questions please call us at [phone] or [phone] or [phone] or [phone]
--- NOTE | 2020-07-16 09:55 | Anesthesiology Consultation ---
Date of Service July 16, 2020 Assessment & Plan (1) Encounter for pre-operative examination: - Awaiting surgeon-ordered cardiology clearance scheduled 07/28 ([facility] [place] - Awaiting surgeon-ordered PCP clearance scheduled 07/21 ([facility] [place]). - Per assessment on 07/16: Travel screen- Lives in [facility]. Uses PPE. known COVID-19 positive contacts or current COVID-19 related symptoms. Surgeon arranging preop COVID testing. Awaiting results. - S/P lap incisional hernia repair: 01/16/19: Grade 1 view, MAC#3, ETT 7.0 at [facility] - Eliquis instructions: patient made aware that in order for spinal anesthesia, Eliquis needs to be held 3 days/72 hours prior to surgery. Patient voiced understanding/will check if okay with prescriber. Chart Review Chart Review: Patient seen in Pre Admission Testing Teaching & Discussion Pre-Anesthesia Teaching/Discussion Notes: Instructed NPO after midnight before surgery,except medications with 15 cc of water. Medication instructions provided according to the PAT guidelines. History Surgery Operation Date: 08/11/20 10:20 Proposed Procedures p Left Total Knee Arthroplasty - Rigo Delacruz MD Height/Weight Height: 5 ft 2 in Weight: 83.8 kg Allergies Allergy/AdvReac Type Severity Reaction Status Date / Time azithromycin Allergy Intermediate Hives Verified 07/09/20 11:18 Bactrim Allergy Intermediate HIVES Verified 02/19/18 10:25 cefuroxime Allergy Intermediate Hives Verified 07/16/20 10:17 cephalexin Allergy Intermediate Hives Verified 07/16/20 10:17 clarithromycin Allergy Intermediate Hives Verified 07/16/20 10:17 oxaprozin Allergy Intermediate Hives Verified 07/16/20 10:17 sulfamethoxazole Allergy Intermediate Hives Verified 07/16/20 10:17 trimethoprim Allergy Intermediate Hives Verified 07/16/20 10:17 trovafloxacin Allergy Intermediate Hives Verified 07/16/20 10:17 albuterol Allergy Unknown Rash Verified 07/09/20 11:19 sterapred Allergy Unknown Unknown Uncoded 07/09/20 11:19 Medications Home Medications Medication Instructions Recorded Confirmed Last Taken herbal complex no.174 450 mg 450 mg PO BID cap 07/29/19 07/09/20 08/17/19 capsule flaxseed oil 1,000 mg PO HS 08/17/19 07/09/20 08/17/19 acetaminophen 500 mg tablet 1,000 mg PO QID PRN #100 tab 07/07/20 07/09/20 Unknown apixaban 5 mg tablet 5 mg PO BID #180 tab 07/07/20 07/09/20 Unknown budesonide 180 mcg/actuation 2 inh INHALATION BID #3 inhaler 07/07/20 07/09/20 Unknown breath activated powder inhaler calcium carbonate 600 mg calcium 600 mg PO BID #180 tab 07/07/20 07/09/20 Unknown (1,500 mg) tablet metoprolol tartrate 25 mg tablet 25 mg PO BID #180 tab 07/07/20 07/09/20 Unknown citalopram 10 mg PO QAM 07/09/20 07/09/20 Unknown fexofenadine 180 mg PO QAM 07/09/20 07/09/20 Unknown hydrochlorothiazide 25 mg PO QAM 07/09/20 07/09/20 Unknown levothyroxine 88 mcg PO QAM 07/09/20 07/09/20 Unknown multivitamin 1 tab PO QAM 07/09/20 07/09/20 Unknown omega-3 fatty acids [Fish Oil 1,000 mg PO QAM 07/09/20 07/09/20 Unknown Concentrate] omeprazole 20 mg PO QAM 07/09/20 07/09/20 Unknown pumpkin seed extract-soy germ [Azo 1 cap PO DAILY 07/16/20 07/16/20 Unknown Bladder Control] Past Medical History Medical History (Updated 07/16/20 @ 14:30 by Maya Mendoza) Allergic rhinitis Asthma stable Chronic GERD controlled Essential hypertension Generalized anxiety disorder Generalized osteoarthritis of multiple sites History of colon cancer s/p colon reaction (2018)/no chemo Hypothyroid Lumbar disc disease Lung disease, restrictive Obesity Osteopenia Paroxysmal atrial fibrillation on Eliquis Exercise / Class Metabolic Activity II 4-5 Yardwork/Stairs/Walk up hill Past Family History Family History Mother Coronary heart disease Father Cancer skin Melanoma Brother Cancer Agent [place] Grandmother (Maternal) Goiter Denies family history of Ovarian cancer Prostate cancer Myocardial infarction Breast cancer Colorectal cancer Past Surgical History Surgical History (Updated 07/16/20 @ 10:15 by Maya Mendoza) H/O arthroscopy of knee right H/O bilateral salpingo-oophorectomy H/O colonoscopy History of back surgery x4 History of bowel resection 2018 History of hernia repair x3 Hx of foot surgery bunionectomy (R/L), hammertoe repair (left) Hx of shoulder surgery left - for torn ligament Hx of total shoulder replacement right Past Anesthesia History No Hx of Anesthesia Complications and No Family Hx of Anesthesia Complications History of PONV No Hx of PONV and No Hx of Motion Sickness Social History Smoking Status: Former smoker tobacco type: cigarettes Do You Dip or Chew Tobacco: No Smoking End Date: QUIT 40 YRS AGO Hx Alcohol Use: Yes Alcohol type: wine alcohol intake frequency: 0-2 drinks per day (1 drink/night (wine)) Hx Substance Use: No substance use type: does not use Review of Systems Allergies related chronic cough (non-productive). Patient denies chest pain, shortness of breath, dyspnea on exertion, fever, chills, cough, wheezing, palpitations. Physical Exam Vital Signs VITALS BP 117/79 P 62 TEMP 98.1 SP02 98%RA RESP 16 PHYSICAL Full neck and c-spine range of motion. Full TMJ range of motion. TMD 3 finger breaths Mallampati Score 1 Dentition: upper full plate Lungs: clear throughout to auscultation Cardiac: regular rate and rhythm, no murmurs noted Spine: normal Carotid arteries: negative bruit Extremities: no edema Testing Laboratory Results 07/16/20 10:21 07/16/20 10:21 PT 11.1 Seconds (9.0-12.0) 07/16/20 10:21 INR 1.1 (0.9-1.1) 07/16/20 10:21 APTT 30.5 Seconds (21.0-31.0) 07/16/20 10:21 Hemoglobin A1c 5.3 % (4.5-5.6) 07/16/20 10:21 Urine Color Yellow 07/16/20 10:21 Urine Appearance Clear (Clear) 07/16/20 10:21 Urine pH 6.0 (4.5-7.5) 07/16/20 10:21 Ur Specific [place] 1.016 (1.000-1.030) 07/16/20 10:21 Urine Protein Negative (Negative) 08/28/20 10:21 Urine Glucose (UA) Negative (Negative) 07/16/20 10:21 Urine Ketones Negative (Negative) 07/16/20 10:21 Urine Nitrite Negative (Negative) 07/16/20 10:21 Ur Leukocyte Esterase Negative (Negative) 07/16/20 10:21 Blood Type A Positive 07/16/20 10:21 Antibody Screen NEGATIVE 07/16/20 10:21 Electrocardiogram Date: 07/16/20 NSR at 61bpm. Possible old inferior infarct. Chest X-Ray Date: 07/16/20 FINDINGS: Lung volumes are normal. Lungs are clear. There is no pneumothorax or pleural effusion. Cardiac size is normal. Mediastinal contours are normal. There is no evidence for pulmonary edema. Right shoulder arthroplasty and lumbar spine fusion hardware is partially imaged. IMPRESSION: No acute cardiopulmonary findings.
--- NOTE | 2020-07-16 10:59 | XRay Report ---
XR chest Pre-admission PA/Lat CLINICAL HISTORY: Preoperative evaluation. COMPARISON STUDY: Chest radiograph December 08, 2019. FINDINGS: Lung volumes are normal. Lungs are clear. There is no pneumothorax or pleural effusion. Car diac size is normal. Mediastinal contours are normal. There is no evidence for pulmonary edema. Right shoulder arthroplasty and lumbar spine fusion hardware is partially imaged. IMPRESSION: No acute cardiopulmonary findings. ACT 112: Negative or not required by law. Electronically signed by: Holger Brink M.D. 07/16/2020 10:58 AM
[2020-07-16 11:39] LABS: Basophils # (auto) 0.03 K/uL (0-0.2); Basophils % (auto) 0.7 %; Eosinophils # (auto) 0.21 K/uL (0-0.5); Eosinophils % (auto) 4.6 %; Hematocrit (blood only) 39.7 % (37-47); Hemoglobin 13.8 g/dL (12.0-16.0); Immature Granulocytes # (auto) 0.01 K/uL (0.00-0.02); Immature Granulocytes % (auto) 0.2 %; Lymphocytes # (auto) 1.11 K/uL (1.2-3.4); Lymphocytes % (auto) 24.4 %; Mean Corpuscular Hemoglobin 33.8 pg (25-34); Mean Corpuscular Hgb Conc 34.8 g/dL (32-36); Mean Corpuscular Volume 97.3 fL (80-100); Mean Platelet Volume 9.9 fL (7.4-10.4); Monocytes # (auto) 0.49 K/uL (0.11-0.59); Monocytes % (auto) 10.8 %; Neutrophils # (auto) 2.69 K/uL (1.4-6.5); Neutrophils % (auto) 59.3 %; Platelet Count 284 K/uL (130-400); RDW Coefficient of Variation 12.6 % (11.5-14.5); RDW Standard Deviation 44.6 fL (36.4-46.3); Red Blood Count 4.08 M/uL (4.2-5.4); White Blood Count 4.54 K/uL (4.8-10.8)
[2020-07-16 11:52] LABS: Albumin Level 3.4 gm/dl (3.4-5.0); BUN Creatinine Ratio 13.7 (10-20); Calcium 8.9 mg/dl (8.5-10.1); Est GFR (African American) 95.1; Est GFR (Non-African American) 82.1; Potassium 3.6 mmol/L (3.5-5.1)
[2020-07-16 11:53] LABS: INR 1.1 (0.9-1.1); Partial Thromboplastin Ratio 1.1; Partial Thromboplastin Time 30.5 Seconds (21.0-31.0); Prothrombin Time 11.1 Seconds (9.0-12.0)
[2020-07-16 12:00] LABS: Appearance Urine Clear (Clear); Bilirubin Urine Negative (Negative); Blood Urine Negative (Negative); Color Urine Yellow; Glucose Urine UA Negative (Negative); Ketones Urine Negative (Negative); Leukocyte Esterase Urine Negative (Negative); Nitrite Urine Negative (Negative); Protein Urine Negative (Negative); Specific Gravity Urine 1.016 (1.000-1.030); Urobilinogen Urine Negative (Negative)
[2020-07-16 12:07] LABS: Estimated Average Glucose 105 mg/dl; Hemoglobin A1C 5.3 % (4.5-5.6)
--- NOTE | 2020-07-16 13:43 | Electrocardiogram Report ---
Test Reason : Blood Pressure : / mmHG Vent. Rate : 061 BPM Atrial Rate : 061 BPM P-R Int : 208 ms QRS Dur : 074 ms QT Int : 428 ms P-R-T Axes : -10 024 066 degrees QTc Int : 430 ms Normal sinus rhythm Possible Old Inferior infarct Abnormal ECG When compared with ECG of 09-JAN-2019 11:36, Borderline criteria for Inferior infarct are now Present T wave inversion no longer evident in Inferior leads Nonspecific T wave abnormality no longer evident in Lateral leads Confirmed by Crispin Lynn ([id number]) on 07/16/2020 1:43:07 PM Referred By: Rigo Delacruz Confirmed By:Crispin Lynn
--- NOTE | 2020-08-10 20:54 | History and Physical Report ---
DATE OF ADMISSION: 08/11/2020 CHIEF COMPLAINT: Chronic left knee pain. HISTORY OF PRESENT ILLNESS: This is a 70-year-old female patient of Dr. Delacruz'irina complaining of chronic left knee pain, longstanding, now progressively getting worse. The patient has failed conservative treatment including intra-articular injections, viscosupplementation, anti-inflammatories and home exercise program. The patient has increased pain with weightbearing activities and her pain does interfere with her activities of daily living. The patient has been diagnosed with end-stage osteoarthritis per clinical and radiographic exams. The patient wished to proceed with a left total knee arthroplasty. PAST MEDICAL HISTORY: Atrial fibrillation, hypothyroidism, osteoarthritis, sciatica, acid reflux, hiatal hernia, obesity, dentures, colon cancer. SOCIAL HISTORY: Nonsmoker, occasional drinker. PAST SURGICAL HISTORY: Back surgery x4, shoulder surgery replacement, shoulder surgery arthroscopy, foot surgery x2. FAMILY HISTORY: Noncontributory. REVIEW OF SYSTEMS: Chronic left knee pain and instability. Otherwise denies any shortness of breath, chest pain, nausea, vomiting or any other joint complaints. MEDICATIONS: 1. Flacseed oil 1000 mg daily. 2. Synthroid 75 mcg daily. 3. Hydrochlorothiazide 25 mg daily. 4. Metoprolol 25 mg 1 tablet twice daily. 5. Eliquis 5 mg twice daily. 6. Ruchi 180 mg daily. 7. Tylenol as needed. 8. Iron 325 mg twice daily. 9. Fish oil daily. 10. Citalopram 10 mg daily. 11. Omeprazole 20 mg daily. 12. Calcium 600 plus D daily. ALLERGIES: AZITHROMYCIN, CEPHALEXIN, OXAPROZIN, PREDNISONE, SULFA, BACTRIM, WHICH ALL CAUSE HIVES. PHYSICAL EXAMINATION: GENERAL: Well-developed, well-nourished 70-year-old female in no acute distress. She is alert and oriented x3 and pleasant. HEENT: Normocephalic, atraumatic. Extraocular motions are intact. Pupils are equal and reactive to light. HEART: Regular rate and rhythm, no murmurs. LUNGS: Clear. ABDOMEN: Soft, nontender, bowel sounds present. EXTREMITIES: Left knee range of motion 0-125. Positive effusion, varus deformity. Medial joint line tenderness. Positive crepitation, 4/5 strength with pain. Neurologically and neurovascularly, she is intact in her left lower extremity. DIAGNOSES: Left knee end-stage osteoarthritis, irregular heartbeat with atrial fibrillation, hypothyroidism, osteoarthritis, sciatica, acid reflux, hernia, obesity, history of colon cancer, hypertension. PLAN: The patient was advised of her diagnosis. Indications, risks, benefits, postop course have all been reviewed. The patient wished to proceed with a left total knee arthroplasty. Necessary consent forms, preoperative testing and clearances will be obtained. ALEXX
[~2020-08-11 08:55] MED LIST changes: -ACET-1256 PO; +ACETAMINOPHEN 500 MG TAB PO SCH; -APIX1TAB3 PO; +BUPIVACAINE 0.5 % 5 MG/1 ML PF 10ML VIAL ONE; +BUPIVACAINE/EPINEPHRINE 0.25% 1:200,000 30 ML VIAL ONE; -CALC600T37 PO; -CITA10TA4 PO; -CLR10 PO; -ECHICAP PO; +FAMOTIDINE 20 MG TAB PO SCH; -FLAX100024 PO; +GABAPENTIN 300 MG CAP PO SCH; -GADAVIST IV PRN; -HYDR25TA4 PO; -LEVO75TA5 PO; +LIDOCAINE HCL 2% 2 ML VIAL/AMP(20MG/ML) INFIL ONE; +LR 500ML BOLUS, THEN 15ML/HR IV SCH; -METO25TA56 PO; +METOCLOPRAMIDE HCL 10 MG TABLET PO SCH; +MIDAZOLAM HCL 1 MG/ML 2ML VIAL ONE; -MULT-506 PO; -MULT1CAP52 PO; -OMEG120013 PO; +ONDANSETRON INJ 2 MG/ML 2 ML VIAL ONE; -PRLSR20 PO; +PROPOFOL IV EMULSION 10 MG/ML 20 ML VIAL IV ONE; +ROPIVACAINE 0.5% HCL/PF 150 MG, BUPIVACAINE 0.5% MPF 30 ML, EPINEPHrine 30MG/30ML (OR U... INFIL SCH; +VANCOMYCIN HCL 1,250 MG in SODIUM CHLORIDE 0.9% 250 ML IV SCH; +dexAMETHasone 4 MG TAB PO SCH; +fentaNYL citrate 100 MCG/2 ML VIAL ONE
[2020-08-11] MEDS ORDERED: ePHEDrine sulfate 50 MG/ML AMP IV PRN (10:34)
[2020-08-11] MEDS ORDERED: HYDROmorphone INJ 2 MG/ML SYR/VIAL IV PRN (10:34)
[2020-08-11] MEDS ORDERED: ATROPINE SULFATE 0.1 MG/ML 10ML SYR IV PRN (10:34)
[2020-08-11] MEDS ORDERED: fentaNYL citrate 100 MCG/2 ML VIAL IV PRN (10:34)
[2020-08-11] MEDS ORDERED: PROMETHAZINE HCL 12.5 MG in SODIUM CHLORIDE 0.9% 50 ML IV PRN (10:34)
[2020-08-11] MEDS ORDERED: ONDANSETRON INJ 2 MG/ML 2 ML VIAL IV PRN ×2 (10:34→14:39)
[2020-08-11] MEDS ORDERED: BACITRACIN INJ 50,000 UNIT VIAL ONE (11:12)
[2020-08-11] MEDS ORDERED: ORTHO JOINT ANESTHETIC ONE (11:12)
--- NOTE | 2020-08-11 11:21 | History & Physical Bridge Note ---
Date of Service August 11, 2020 History & Physical Bridge Note I have examined the patient, reviewed the History & Physical and in the interval since the performance of the History & Physical I have noted the following changes of clinical significance: no changes noted
[2020-08-11] MEDS ORDERED: BUPIVACAINE/EPINEPHRINE 0.25% 1:200,000 30 ML VIAL ONE (11:30)
[2020-08-11] MEDS ORDERED: ePHEDrine sulfate 50 MG/ML SYR ONE (12:07)
[2020-08-11] MEDS ORDERED: PROPOFOL IV EMULSION 10 MG/ML 20 ML VIAL IV ONE (13:03)
--- NOTE | 2020-08-11 13:20 | Operative Report ---
Post Operative Report Pre & Post Diagnosis Operation Date: 08/11/20 12:00 Pre-Op Diagnosis: Osteoarthritis, Left Knee Post-Op Diagnosis: Osteoarthritis, Left Knee I identified the patient and participated in the time-out.: Yes Procedure Operation Date: 08/11/20 12:00 Actual Procedures p Left Total Knee Arthroplasty(Left) - Rigo Delacruz MD Surgeon Rigo Delacruz MD Concrete Floor Installer Chilango BRANCH Estimated Blood Loss 5 Findings Consistent with Post-Op Diagnosis Specimens Bone cuts Drains 2 Hemovac Anesthesia Type MAC Spinal Regional Complications none Disposition Accompanied Patient To Recovery: No Disposition: Recovery Room Indications 70-year-old female with chronic varus osteoarthritis in both knees. Left greater than right. Radiographs demonstrate on weightbearing films she is [id number] in the medial compartment on flexion views and has moderately advanced medial patellofemoral OA. The right knee demonstrates lateral compartment OA close to if not [id number] on flexion views in the lateral compartment. Left knee more painful than right. Failed conservative management. Description of Procedure Patient taken to the operating room placed supine on the operating table and anesthetized under spinal MAC regional anesthesia. Exam under anesthesia demonstrated generalized ligamentous laxity of the knee with some increased laxity with varus valgus stress and hyperextension of the knee 15 to 20 degrees with flexion to 150 degrees. Varus knee. A pneumatic tourniquet was placed about the thigh of the left lower extremity. The left lower extremity was prepped and draped in usual fashion. Leg was elevated exsanguinated with an Esmarch bandage and the pneumatic was raised to 350 mm mercury. An anterior incision was made across the left knee. The skin was incised longitudinally subcutaneous flaps were elevated and an incision was made through the medial retinaculum extending up into the mid third of the quadriceps tendon and extended down to the medial tibial tubercle. Intra-articular findings demonstrated grade 4 [id number] medial compartment grade 3 patellofemoral with surrounding osteophytes. The knee was exposed by excising the infrapatellar fat pad, excising the meniscal remnants and anterior cruciate ligament. Any inflamed synovial tissue was resected. The fat pad over the anterior femur was resected for placement of the component in that area. The lateral synovial bands were release. No releases were required in order to balance ligaments. T he femur was exposed. The custom femoral cutting block was pinned in position. The distal femoral cutting block was applied. The distal femoral cut was made with the oscillating saw. The size 7, 4-in-1 cutting block was placed. The anterior and posterior chamfer cuts were made. The knee was extended and a subperiosteal peel lateral release was performed around the patella. The patella width was measured and width was reproduced using freehand cut technique. The 32 x 8.5 millimeter symmetrical patella was used. 3 drill holes are made for the pegs. The tibia was exposed. A custom tibial cutting block was positioned and drill holes were made for the cutting guide. Cutting guide was placed and the proximal cut was made with the oscillating saw. All osteophytes were resected. The lamina color matcher was used to assess ligamentous balance and the ligaments were balanced in extension and flexion. The tibia was reexposed and measured for a size D tibial component. This was externally rotated in line with the tibial tubercle and the fixation pins were drilled. The proximal tibia was fashioned with the drill and punch. The size 7 femoral trial was inserted. The trial MC inserts were used. The 12 mm insert gave balanced ligaments through full range of motion. Patient still had hyperextension which was similar to her preoperative status. The patella tracked centrally. the trials were removed. The orthomix anesthetic cocktail was injected per protocol. The knee was then copiously irrigated with pulsatile lavage antibiotic solution with bacitracin. The final components were cemented with Simplex cement. The final components were persona size 7 CR narrow left femoral component, D tibia cemented, 12 capital MC tibial polyethylene, 32 x 8.5 symmetrical patella. While the cement cured with the knee in full extension the Betadine soak was used per protocol. After the cement cured, the knee joint was copiously irrigated with antibiotic solution with bacitracin. 2 drains were brought out laterally and connected to a Hemovac. The quadriceps tendon and medial retinaculum were closed with interrupted [id number] #1 Vicryl sutures. The knee was taken through a full range of motion and repair was secure. The subcutaneous tissues were closed with 2-0 Vicryl sutures and skin was closed with terri. Sterile dressings were applied and the patient tolera prince the procedure well. Chilango BRANCH my physician assistant corporate secretary, assisted in soft tissue retraction instrument management leg positioning the closure and will participate in the postoperative care of the patient. I attest to the content of the Intraoperative Record and any orders documented therein. Any exceptions are noted below.
--- NOTE | 2020-08-11 14:34 | XRay Report ---
XR knee LT 1 or 2V routine HISTORY: 70 years-old Female Surgical Post Op left knee total joint arthroplasty COMPARISON: None TECHNIQUE: 2 views of the left knee FINDINGS: Left knee total joint arthroplasty and patella resurfacing. Anterior midline skin terri are noted a long with expected postoperative soft tissue swelling and deep tissue air with surgical drainage cath eter. No acute fracture or unexpected radiopaque foreign body. IMPRESSION: Left knee total joint arthroplasty with expected postoperative changes. ACT 112: Negative or not required by law. The above report was generated using voice recognition software. It may contain grammatical, syntax o r spelling errors. Electronically signed by: Vik Wilkes M.D. 08/11/2020 2:33 PM
[2020-08-11] MEDS ORDERED: HYDROmorphone INJ 0.5 MG/0.5 ML SYR IV PRN (14:39)
[2020-08-11] MEDS ORDERED: VANCOMYCIN CONSULT ACTIVE PRN (14:39)
[2020-08-11] MEDS ORDERED: OXYCODONE HCL IR 5 MG TAB (IMMEDIATE RELEASE) PO PRN (14:39)
[2020-08-11] MEDS ORDERED: MAGNESIUM HYDROXIDE SUSP 30 ML UDC PO PRN (14:39)
[2020-08-11] MEDS ORDERED: bisacodyL 10 MG SUPP PR PRN (14:39)
[2020-08-11] MEDS ORDERED: NALOXONE HCL 0.4 MG/1 ML VIAL/CARP IV PRN (14:39)
--- NOTE | 2020-08-11 14:48 | Anesthesiology Progress Note ---
Date of Service August 11, 2020 Anesthesia Post Procedure Vital Signs Vital Signs: Temp Pulse Pulse Resp BP BP Pulse Ox 08/11/20 14:39 36.5 C 71 18 120/74 97 08/11/20 14:15 36.3 C L 72 13 121/74 98 08/11/20 14:05 70 15 115/71 99 08/11/20 13:55 70 13 117/71 97 08/11/20 13:45 36.4 C L 76 15 111/71 96 08/11/20 10:10 62 20 135/82 100 08/11/20 09:48 36.7 C 62 16 136/84 97 Pain Intensity Left Knee: Pain Intensity: 8 Transfer of Care Handoff Completed per policy Notes Mental Status: alert / awake / arousable and participated in evaluation Patient Amnestic to Procedure: Yes Nausea / Vomiting: adequately controlled Pain: adequately controlled Airway Patency, RR, SpO2: stable & adequate BP & HR: stable & adequate Hydration State: stable & adequate Neuraxial Anesthesia: was administered and sensory block is resolving Anesthetic Complications: no major complications apparent and Pt Satisfied with anesthetic care
[2020-08-11] MEDS: SODIUM CHLORIDE 0.9% 1000ML 1,000 ML IV SCH (15:02)
--- NOTE | 2020-08-11 15:10 | Hospitalist Consultation ---
Date of Consultation August 11, 2020 Assessment & Plan (1) Status post total left knee replacement: - Pain management, bowel regimen and DVT ppx with Eliquis 5 mg BID per the primary team to start in the morning - PT/OT consults, pt would like home health services for PT/OT. Will ask CM to assist with discharge planning. - Follow am CBC to monitor for acute blood loss (2) Paroxysmal atrial fibrillation: Noted incidentally in the preoperative area prior to her right shoulder replacement surgery several years ago No recurrence since then, however she reports she was asymptomatic at that time. Is in a regular rhythm here on examination and was in a sinus rhythm on ECG 1 month ago at her preoperative visit -Continue metoprolol tartrate 25 mg BID, anticoagulated with Eliquis 5 mg BID which will restart in the morning -Follows with cardiology as an outpatient, Deanne Edwards Monitor vital signs and clinically for recurrence of rapid atrial fibrillation (3) Essential hypertension: Blood pressures are controlled -Continue metoprolol 25 mg BID, HCTZ 25 mg daily (4) Lung disease, restrictive: -Continue Arnuity Ellipta inhaler No acute issues Pulse ox 98% on room air (5) History of colon cancer: -History of such, 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 Diagnosed 02/22/2019, mucinous cystadenoma of the left ovary diagnosed 04/22/2018 (6) Mucinous cystadenocarcinoma of left ovary: - mucinous cystadenoma of the left ovary diagnosed 04/22/2018 during laparoscopic transverse colectomy for the above- sp oophorectomy on 04/22/18 (7) Chronic GERD: - Cont omeprazole (8) Obesity (BMI 35.0-39.9 without comorbidity): - Diet and exercise to be encouraged (9) Osteopenia: - Continue calcium supplement (10) Generalized anxiety disorder: - Cont celexa 10 mg daily DVT ppx: jewels, SCDs CODE: Full Thank you for involving us in the care of Mrs. Porter. Please do not hesitate to call with questions or concerns. Medicine service will follow along. Supervising Physician Co-Signing Physician Notes PA Supervision Note: I personally saw and examined the patient. I verified all vidales points and agree with SARINA Urias with the following exceptions and/or additions: This patient is a 70-year-old female with history of PAF on Eliquis, HTN, hypothyroidism, restrictive lung disease, colon cancer status post colectomy, ovarian cancer, GERD, obesity, anxiety disorder, here with left total knee arthroplasty. Hospitalist service consulted for medical management. Patient is doing very well after surgery and having some expected pain in the knee. Denies chest pain or heart palpitations, denies shortness of breath or cough. Denies abdominal pain or nausea. She tolerated dinner prior to me seeing her. No headache or lightheadedness. History and ROS reviewed as above. Vitals reviewed Gen: AAOx3, NAD HEENT: Anicteric sclerae, EOMI CV: RRR no mgr nl S1S2 Pulm: CTAB no wcr Abd: +BS soft NT ND no masses or hernias Ext: No edema, 2+ DP pulses, left lower extremity with large Shravan wrap in place and drain with some bloody drainage Skin: No rashes, warm/dry Neuro: Full strength throughout Preoperative laboratory values and ECG was reviewed 70-year-old female with history as above here status post left TKA. Doing well, starting Eliquis tomorrow Remains in sinus rhythm-we will watch for return of rapid atrial fibrillation in the perioperative time period Follow blood pressures Follow CBC, BMP in the morning Okay to continue home hydrochlorothiazide Watch for exacerbation of chronic lung disease but seems to be doing well so far Hospitalist service will follow along History of Present Illness Attending Physician: Rigo Delacruz MD History of Present Illness This is a 70 yo female with PMHx of paroxysmal A. fib on Eliquis, HTN, restrictive lung disease, hypothyroidism, colon cancer and mucinous cystadenoma s/p resection, osteopenia, allergic rhinitis, anxiety, obesity with BMI of 33.2, who underwent elective left total knee arthroplasty by Dr. Delacruz on 08/11/2020. She is seen at bedside with her present. States that she is doing well, recently arriving into her room from PACU. She is still quite numb and unable to move her left foot. Denies any nausea/vomiting, has drank a few sips of water but not had anything to eat yet. Her last bowel movement was yesterday, and takes a stool softener daily at baseline. We discussed bowel regimen with fiber and stool softeners to avoid constipation. She denies any other acute complaints. Patient plans on having home health PT/OT on discharge. Allergies Allergy/AdvReac Type Severity Reaction Status Date / Time azithromycin Allergy Intermediate Hives Verified 08/11/20 09:37 Bactrim Allergy Intermediate HIVES Verified 02/19/18 10:25 cefuroxime Allergy Intermediate Hives Verified 08/11/20 09:37 cephalexin Allergy Intermediate Hives Verified 08/11/20 09:37 clarithromycin Allergy Intermediate Hives Verified 08/11/20 09:37 oxaprozin Allergy Intermediate Hives Verified 08/11/20 09:37 sulfamethoxazole Allergy Intermediate Hives Verified 08/11/20 09:37 trimethoprim Allergy Intermediate Hives Verified 08/11/20 09:37 trovafloxacin Allergy Intermediate Hives Verified 08/11/20 09:37 albuterol Allergy Unknown Rash Verified 08/11/20 09:37 sterapred Allergy Unknown Unknown Uncoded 08/11/20 09:37 Home Medications Home Medications Medication Instructions Recorded Confirmed Type herbal complex no.174 450 mg 450 mg PO BID cap 07/29/19 08/11/20 History capsule flaxseed oil 1,000 mg PO HS 08/17/19 08/11/20 History acetaminophen 500 mg tablet 1,000 mg PO QID PRN #100 tab 07/07/20 07/28/20 Rx apixaban 5 mg tablet 5 mg PO BID #180 tab 07/07/20 08/11/20 Rx budesonide 180 mcg/actuation 2 inh INHALATION BID #3 inhaler 07/07/20 08/11/20 Rx breath activated powder inhaler calcium carbonate 600 mg calcium 600 mg PO BID #180 tab 07/07/20 08/11/20 Rx (1,500 mg) tablet metoprolol tartrate 25 mg tablet 25 mg PO BID #180 tab 07/07/20 07/28/20 Rx citalopram 10 mg PO QAM 07/09/20 08/11/20 History fexofenadine 180 mg PO QAM 07/09/20 07/28/20 History hydrochlorothiazide 25 mg PO QAM 07/09/20 08/11/20 History levothyroxine 88 mcg PO QAM 07/09/20 07/28/20 History multivitamin 1 tab PO QAM 07/09/20 08/11/20 History omega-3 fatty acids [Fish Oil 1,000 mg PO QAM 07/09/20 08/11/20 History Concentrate] omeprazole 20 mg PO QAM 07/09/20 07/28/20 History pumpkin seed extract-soy germ [Azo 1 cap PO DAILY 07/16/20 08/11/20 History Bladder Control] Patient History Medical History (Updated 08/11/20 @ 15:06 by Kaur Urias PA-C) Allergic rhinitis Asthma stable Chronic GERD controlled Essential hypertension Generalized anxiety disorder Generalized osteoarthritis of multiple sites History of colon cancer s/p colon reaction (2018)/no chemo Hypothyroid Lumbar disc disease Lung disease, restrictive Obesity Osteopenia Paroxysmal atrial fibrillation on Eliquis Surgical History (Updated 08/11/20 @ 15:03 by Kaur Urias PA-C) H/O arthroscopy of knee right H/O bilateral salpingo-oophorectomy H/O colonoscopy History of back surgery x4 History of bowel resection 2018 History of hernia repair x3 Hx of foot surgery bunionectomy (R/L), hammertoe repair (left) Hx of shoulder surgery left - for torn ligament Hx of total shoulder replacement right Family History Mother Coronary heart disease Father Cancer skin Melanoma Brother Cancer Agent [place] Grandmother (Maternal) Goiter Denies family history of Ovarian cancer Prostate cancer Myocardial infarction Breast cancer Colorectal cancer Social History Smoking Status: Former smoker Age Started Using Tobacco: 17; Age Quit Using Tobacco: 29; packs per day: 0.5; Smoking End Date: QUIT 40 YRS AGO; Second Hand Exposure: Yes; Do You Dip or Chew Tobacco: No; Hx Alcohol Use: Yes Alcohol type: wine Hx Substance Use: No Preferred Language: Czech Communication Ability: Effective Visual Impairment: Partially Limited Hearing Ability: Normal Fitter Mechanic Required: No Beliefs That Will Affect Care: None marital status: Current Living Situation: Spouse current occupational status: retired Other Information That Helps Us Care for You: No Feels Safe at Home: Yes Safety Concerns: Feels Safe At This Time Childhood Exposure to Second-Hand Smoke: No caffeine: Yes (cappucino/tea/ coke rarely) during the past year weight has: remained stable Dental Care, Regularly: Yes Physical Activity Frequency: Daily Seatbelt Use: always Sunscreen Use: Yes Do you think of yourself as: straight/heterosexual Assistive Devices: Glasses and Walker Review of Systems Review of Systems: Constitutional: No fever, sweats or chills Eyes: No diplopia, no worsening or blurred vision ENT: normal hearing, no trouble swallowing Respiratory: No cough, sputum, dyspnea at rest or on exertion Cardiovascular: No chest pain, tightness or palpitations Abdomen: No pain, nausea, vomiting, diarrhea or constipation Musculoskeletal: + Left lower extremity numbness, otherwise no joint pain, calf pain, swelling Neurologic: No weakness, numbness/tingling, or balance problems Psychiatric: No anxiety or depression Skin: No rash or itch Physical Exam Physical Exam: General: awake, alert, no apparent distress, + obese, BMI 33.2+ LLE Head: Normocephalic, atraumatic ENT: PERRL, EOMI, no pharyngeal exudate, mucous membranes moist Chest: Clear to auscultation, on room air, no adventitious breath sounds Cardiac: Regular rate and rhythm, no murmur, no JVD, normal peripheral pulses, good capillary refill Abdominal: NABS x 4 quadrants, soft, nondistended, nontender to palpation, no rebound or guarding Extremities: + LLE with Shravan wrap, MOOK drain in place, scds. Unable to move toes, dulled sensation to light touch. Otherwise normal inspection, no peripheral edema or erythema, calfs nontender to palpation Psych: Normal mood and affect Neuro: AAO x 3, strength intact bilaterally and rated 5/5, no motor deficits, speech is clear, no peripheral sensory deficits Results & Data Results & Data ([facility]) Vital Signs (Past 12 Hours) Vital Signs Temp Pulse Pulse Resp BP BP Pulse Ox 08/11/20 14:39 36.5 C 71 18 120/74 97 08/11/20 14:15 36.3 C L 72 13 121/74 98 08/11/20 14:05 70 15 115/71 99 08/11/20 13:55 70 13 117/71 97 08/11/20 13:45 36.4 C L 76 15 111/71 96 08/11/20 10:10 62 20 135/82 100 08/11/20 09:48 36.7 C 62 16 136/84 97 PG Care Time/CCT Total # of Minutes Spent Total Time Spent with Patient: Total time spent is greater than 50% in coordination of care (as documented) at patient's floor/unit and/or counseling patient: Coding Level of Care Code 50676 Inpt Consult Level 3 Diagnoses Status post total left knee replacement Z96.652 Paroxysmal atrial fibrillation I48.0 Essential hypertension I10 Lung disease, restrictive J98.4 History of colon cancer Z85.038 Mucinous cystadenocarcinoma of left ovary C56.2 Chronic GERD K21.9 Obesity (BMI 35.0-39.9 without comorbidity) E66.9 Osteopenia M85.80 Generalized anxiety disorder F41.1
[2020-08-11] MEDS: FERROUS GLUCONATE 324 MG TAB PO SCH (17:53)
[2020-08-11] MEDS ORDERED: PNEUMOCOCCAL Polysaccharide Vaccine 25mcg/0.5mL vial/Syr IM ONE (18:00)
[2020-08-11] MEDS: DOCUSATE SODIUM 100 MG CAP PO SCH (21:14)
[2020-08-11] MEDS: ACETAMINOPHEN 500 MG TAB PO SCH (21:14)
[2020-08-11] MEDS: METOPROLOL TARTRATE 25 MG TAB PO SCH (21:15)
[2020-08-11] MEDS: SENNA 8.6 MG TAB PO SCH (21:15)
[2020-08-11] MEDS ORDERED: VANCOMYCIN HCL 1,250 MG in SODIUM CHLORIDE 0.9% 250 ML IV SCH (22:00)
[2020-08-12] MEDS: SODIUM CHLORIDE 0.9% 1000ML 1,000 ML IV SCH (03:01)
[2020-08-12] MEDS: ACETAMINOPHEN 500 MG TAB PO SCH ×3 (05:35→21:25)
[2020-08-12] MEDS: LEVOTHYROXINE SODIUM 88 MCG TABLET PO SCH (05:35)
[2020-08-12 07:58] LABS: Hematocrit (blood only) 31.2 % (37-47); Hemoglobin 10.5 g/dL (12.0-16.0); Mean Corpuscular Hemoglobin 32.4 pg (25-34); Mean Corpuscular Hgb Conc 33.7 g/dL (32-36); Mean Corpuscular Volume 96.3 fL (80-100); Mean Platelet Volume 9.3 fL (7.4-10.4); Platelet Count 268 K/uL (130-400); RDW Standard Deviation 42.4 fL (36.4-46.3); Red Blood Count 3.24 M/uL (4.2-5.4); White Blood Count 12.01 K/uL (4.8-10.8)
[2020-08-12 08:46] LABS: BUN Creatinine Ratio 27.9 (10-20); Creatinine Clr Calc Pharmacy 82.7 ml/min; Est GFR (African American) 105.3; Est GFR (Non-African American) 90.9; Potassium 3.8 mmol/L (3.5-5.1)
--- NOTE | 2020-08-12 09:03 | Hospitalist Progress Note ---
Date of Service August 12, 2020 Assessment & Plan (1) Status post total left knee replacement: * POD#1 s/p LEFT total knee replacement with Dr. Delacruz. Pre-op h/h 13.8/39.7. EBL 5cc * Pain management, bowel regimen and DVT ppx with Eliquis 5 mg BID per the primary team to start in the morning * PT/OT consults --> pt would like home health services for PT/OT. Will ask CM to assist with discharge planning. Referrals sent * h/h 10.5/31.2 -- acute blood loss anemia following surgery as well as Eliquis for DVT prophylaxis in conjunction with fluids. Drainage output 350cc. * Started on iron supplementation BID per primary service * CBC in AM (2) Paroxysmal atrial fibrillation: * Noted incidentally in the preoperative area prior to her right shoulder replacement surgery several years ago. Follows with Deanne Edwards from Cardiology * No recurrence since then, however she reports she was asymptomatic at that time. * Continues to remain in regular rhythm. Also in sinus rhythm on ECG 1 month ago at her preoperative visit * Continue metoprolol tartrate 25 mg BID * Anticoagulated with Eliquis 5 mg BID, resumed AM 08/12 * Continue to monitor clinically (3) Essential hypertension: * Blood pressures are controlled but slightly lower -- BP 107/70 currently * Continue metoprolol 25 mg BID * Home HCTZ 25 mg not ordered yesterday but given low BP will continue to hold and monitor am BP prior to restarting * Continue to monitor (4) Lung disease, restrictive: * No acute issues, 99% on RA * Continue Arnuity Ellipta inhaler (5) History of colon cancer: * History of such, 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 Diagnosed 02/22/2019, mucinous cystadenoma of the left ovary diagnosed 04/22/2018 (6) Mucinous cystadenocarcinoma of left ovary: * mucinous cystadenoma of the left ovary diagnosed 04/22/2018 during laparoscopic transverse colectomy for the above- sp oophorectomy on 04/22/18 (7) Chronic GERD: * Omeprazole not ordered and non-formulary --> will order pantoprazole while inpatient * No issues reported (8) Obesity (BMI 35.0-39.9 without comorbidity): * Diet and exercise encouraged (9) Osteopenia: * Continue calcium supplement (10) Generalized anxiety disorder: * Cont Celexa 10 mg daily (11) DVT prophylaxis: * SCDs * Eliquis as above Thank you for involving us in the care of Mrs. Porter. Please do not hesitate to call with questions or concerns. Medicine service will follow along. Admission and Anticipated Discharge Date Admission Date: August 11, 2020 Subjective Patient states she is doing well post-operatively. No pain reported. Worked with therapy without issues. No further numbness/tingling as reported earlier this morning to orthopedic team. Eating/drinking without difficulty. Passing gas, no BM since day prior to surgery. She typically has success with stool softener and occasionally will use cappuccino if that is unsuccessful. Denies fever, chills, chest pain, shortness of breath, abdominal pain, nausea, vomiting or dysuria. Discussed bleeding and drop in hemoglobin likely from anticoagulation and we will continue to monitor this. Plans for home health at discharge and possible drain removal later today or tomorrow morning. Questions/concerns addressed at this time. Review of Systems Review of Systems: All systems reviewed & are unremarkable except as noted in HPI & below Physical Exam Constitutional: WD/WN, vitals as above + obese; no acute distress Eyes: + anicteric sclerae and PERRL ENMT: Ears: no hearing impairment Nose: no external nose abnormality Neck: normal visual inspection Respiratory: normal respiratory effort, lungs clear to auscultation Cardiovascular: RRR, no murmur, no edema Gastrointestinal (Abdomen): normal bowel sounds, soft, nontender, no hepatosplenomegaly Musculoskeletal: dressing to LEFT knee c/d/i with Hemovac with bloody drainage. NVI 2+ dp, pt pulses bilaterally calves non-tender to palpation equal strength with dorsiflexion/plantar flexion bilaterally Skin: warm, dry Neurologic: patellar DTR's 2+ bilat, sensation intact and PERRL, EOMI, accommodation nl, no face palsy, no dysarthria Psychiatric: A+Ox3, euthymic affect Lymphatic: no cervical or axillary lymphadenopathy Results & Data Results & Data ([facility]) Vital Signs (Past 12 Hours) Vital Signs Temp Pulse Resp BP Pulse Ox 08/12/20 07:52 36.4 C L 64 17 106/65 96 08/12/20 02:55 36.7 C 64 18 115/73 96 08/11/20 23:31 36.5 C 62 16 103/65 92 08/11/20 21:14 76 122/76 Laboratory Results 08/12/20 08/12/20 08/12/20 Range/Units 07:41 07:41 07:41 WBC 12.01 H (4.8-10.8) K/uL RBC 3.24 L (4.2-5.4) M/uL Hgb 10.5 L (12.0-16.0) g/dL Hct 31.2 L (37-47) % MCV 96.3 (80-100) fL MCH 32.4 (25-34) pg MCHC 33.7 (32-36) g/dL RDW Std Deviation 42.4 (36.4-46.3) fL RDW Coeff of Nidhi 12.0 (11.5-14.5) % Plt Count 268 (130-400) K/uL MPV 9.3 (7.4-10.4) fL Sodium 135 L (136-145) mmol/L Potassium 3.8 (3.5-5.1) mmol/L Chloride 102 (98-107) mmol/L Carbon Dioxide 28 (21-32) mmol/L Anion Gap 5.0 (3-11) BUN 18 (7-18) mg/dl Creatinine 0.63 (0.6-1.2) mg/dl Est Cr Clr Drug Dosing 82.7 ml/min Est GFR ( Amer) 105.3 Est GFR (Non-Af Amer) 90.9 BUN/Creatinine Ratio 27.9 H (10-20) Glucose 110 H (70-99) mg/dl Calcium 8.0 L (8.5-10.1) mg/dl Hepatitis C Ab Screen Pending PG Care Time/CCT Total # of Minutes Spent Total Time Spent with Patient: Total time spent is greater than 50% in coordination of care (as documented) at patient's floor/unit and/or counseling patient: Coding Level of Care Code 26667 Subseq Hosp Care Lvl 2 Diagnoses Status post total left knee replacement Z96.652 Paroxysmal atrial fibrillation I48.0 Essential hypertension I10 Lung disease, restrictive J98.4 History of colon cancer Z85.038 Mucinous cystadenocarcinoma of left ovary C56.2 Chronic GERD K21.9 Obesity (BMI 35.0-39.9 without comorbidity) E66.9 Osteopenia M85.80 Generalized anxiety disorder F41.1 DVT prophylaxis Z29.9
--- NOTE | 2020-08-12 10:04 | Orthopedic Progress Note ---
Date of Service August 12, 2020 Assessment & Plan (1) Left knee DJD: POD 1 s/p Left TKA PT/OT protocols. WBAT. DVT prophylaxis - Eliquis bid, SCD's, LENCHO's Pain management as written. DC planning - services upon discharge. Admission and Anticipated Discharge Date Admission Date: August 11, 2020 Subjective POD 1 Pt going through her PT session. Ambulating the hallway. Pt returns to sit at bedside. States she has a numb foot this AM and has weak DF. No other complaints. Pain controlled. Denies SOB,CP,LH. Physical Exam Physical Exam: Dressings are C/D/I. Calves are soft,NT. Residual numbness down the LE from the knee to dorsum of foot. Minimal DF of the foot but is able to DF the great toe. HV drainage 100ml's from the previous shift. Prevena functioning. Results & Data ([facility]) Vital Signs (Past 12 Hours) Vital Signs Temp Pulse Resp BP Pulse Ox 08/12/20 07:52 36.4 C L 64 17 106/65 96 08/12/20 02:55 36.7 C 64 18 115/73 96 08/11/20 23:31 36.5 C 62 16 103/65 92 Laboratory Results Laboratory Results WBC 12.01 K/uL (4.8-10.8) H 08/12/20 07:41 RBC 3.24 M/uL (4.2-5.4) L 08/12/20 07:41 Hgb 10.5 g/dL (12.0-16.0) L 08/12/20 07:41 Hct 31.2 % (37-47) L 08/12/20 07:41 MCV 96.3 fL (80-100) 08/12/20 07:41 MCH 32.4 pg (25-34) 08/12/20 07:41 MCHC 33.7 g/dL (32-36) 08/12/20 07:41 RDW Std Deviation 42.4 fL (36.4-46.3) 08/12/20 07:41 RDW Coeff of Nidhi 12.0 % (11.5-14.5) 08/12/20 07:41 Plt Count 268 K/uL (130-400) 08/12/20 07:41 MPV 9.3 fL (7.4-10.4) 08/12/20 07:41 Immature Gran % (Auto) 0.2 % 07/16/20 10:21 Neut % (Auto) 59.3 % 07/16/20 10:21 Lymph % (Auto) 24.4 % 07/16/20 10:21 [place] % (Auto) 10.8 % 07/16/20 10:21 Eos % (Auto) 4.6 % 07/16/20 10:21 Baso % (Auto) 0.7 % 07/16/20 10:21 Neut # (Auto) 2.69 K/uL (1.4-6.5) 07/16/20 10:21 Lymph # (Auto) 1.11 K/uL (1.2-3.4) L 07/16/20 10:21 [place] # (Auto) 0.49 K/uL (0.11-0.59) 07/16/20 10:21 Eos # (Auto) 0.21 K/uL (0-0.5) 07/16/20 10:21 Baso # (Auto) 0.03 K/uL (0-0.2) 07/16/20 10:21 Immature Gran # (Auto) 0.01 K/uL (0.00-0.02) 07/16/20 10:21 PT 11.1 Seconds (9.0-12.0) 07/16/20 10:21 INR 1.1 (0.9-1.1) 07/16/20 10:21 APTT 30.5 Seconds (21.0-31.0) 07/16/20 10:21 PTT Ratio 1.1 07/16/20 10:21 Sodium 135 mmol/L (136-145) L 08/12/20 07:41 Potassium 3.8 mmol/L (3.5-5.1) 08/12/20 07:41 Chloride 102 mmol/L (98-107) 08/12/20 07:41 Carbon Dioxide 28 mmol/L (21-32) 08/12/20 07:41 Anion Gap 5.0 (3-11) 08/12/20 07:41 BUN 18 mg/dl (7-18) 08/12/20 07:41 Creatinine 0.63 mg/dl (0.6-1.2) 08/12/20 07:41 Est Cr Clr Drug Dosing 82.7 ml/min 08/12/20 07:41 Est GFR ( Amer) 105.3 08/12/20 07:41 Est GFR (Non-Af Amer) 90.9 08/12/20 07:41 BUN/Creatinine Ratio 27.9 (10-20) H 08/12/20 07:41 Glucose 110 mg/dl (70-99) H 08/12/20 07:41 Estimat Average Glucose 105 mg/dl 07/16/20 10:21 Hemoglobin A1c 5.3 % (4.5-5.6) 07/16/20 10:21 Calcium 8.0 mg/dl (8.5-10.1) L 08/12/20 07:41 Albumin 3.4 gm/dl (3.4-5.0) 07/16/20 10:21 Urine Color Yellow 07/16/20 10:21 Urine Appearance Clear (Clear) 07/16/20 10:21 Urine pH 6.0 (4.5-7.5) 07/16/20 10:21 Ur Specific [place] 1.016 (1.000-1.030) 07/16/20 10:21 Urine Protein Negative (Negative) 07/16/20 10:21 Urine Glucose (UA) Negative (Negative) 07/16/20 10:21 Urine Ketones Negative (Negative) 07/16/20 10:21 Urine Blood Negative (Negative) 07/16/20 10:21 Urine Nitrite Negative (Negative) 07/16/20 10:21 Urine Bilirubin Negative (Negative) 07/16/20 10:21 Urine Urobilinogen Negative (Negative) 07/16/20 10:21 Ur Leukocyte Esterase Negative (Negative) 07/16/20 10:21 Blood Type A Positive 07/16/20 10:21 Antibody Screen NEGATIVE 07/16/20 10:21
[2020-08-12] MEDS: FERROUS GLUCONATE 324 MG TAB PO SCH ×2 (10:57→17:29)
[2020-08-12] MEDS: FLUTICASONE FUROATE 200MCG 14 PUFFS/INHALER INH SCH (10:57)
[2020-08-12] MEDS: FEXOFENADINE HCL 180 MG TAB PO SCH (10:58)
[2020-08-12] MEDS: CITALOPRAM 20 MG TAB PO SCH (10:58)
[2020-08-12] MEDS: DOCUSATE SODIUM 100 MG CAP PO SCH ×2 (10:58→20:11)
[2020-08-12] MEDS: MULTIVITAMIN TAB PO SCH (10:59)
[2020-08-12] MEDS: METOPROLOL TARTRATE 25 MG TAB PO SCH ×2 (10:59→20:12)
[2020-08-12] MEDS: APIXABAN 5 MG TABLET PO SCH ×2 (10:59→20:12)
[2020-08-12] MEDS: POLYETHYLENE (MIRALAX) 17 GM PACK PO SCH (17:29)
[2020-08-12] MEDS: PANTOprazole 40 MG TAB PO SCH (17:32)
[2020-08-12] MEDS: SENNA 8.6 MG TAB PO SCH (20:12)
[2020-08-13] MEDS: LEVOTHYROXINE SODIUM 88 MCG TABLET PO SCH (05:21)
[2020-08-13] MEDS: ACETAMINOPHEN 500 MG TAB PO SCH (05:21)
[2020-08-13 06:52] LABS: Hematocrit (blood only) 27.4 % (37-47); Hemoglobin 9.5 g/dL (12.0-16.0); Mean Corpuscular Hemoglobin 33.5 pg (25-34); Mean Corpuscular Hgb Conc 34.7 g/dL (32-36); Mean Corpuscular Volume 96.5 fL (80-100); Mean Platelet Volume 9.4 fL (7.4-10.4); Platelet Count 223 K/uL (130-400); RDW Standard Deviation 42.6 fL (36.4-46.3); Red Blood Count 2.84 M/uL (4.2-5.4); White Blood Count 5.68 K/uL (4.8-10.8)
[2020-08-13 07:26] LABS: BUN Creatinine Ratio 24.7 (10-20); Creatinine Clr Calc Pharmacy 82.7 ml/min; Est GFR (African American) 105.3; Est GFR (Non-African American) 90.9; Potassium 3.8 mmol/L (3.5-5.1)
--- NOTE | 2020-08-13 07:56 | Orthopedic Progress Note ---
Date of Service August 13, 2020 Assessment & Plan (1) Left knee DJD: POD 2 s/p Left TKA PT/OT protocols. WBAT. DVT prophylaxis - Eliquis bid, SCD's, LENCHO's Pain management as written. DC planning - services upon discharge today. Admission and Anticipated Discharge Date Admission Date: August 11, 2020 Subjective POD #2, Doing well. Denies SOB, CP, N/V, dizziness Pain controlled well Did well in PT Physical Exam Physical Exam: Left knee prevena c/d/i, no drainage. Toes/ ankle mobile. No calf tenderness VSS A&Ox3. Results & Data ([facility]) Vital Signs (Past 12 Hours) Vital Signs Temp Pulse Resp BP BP Pulse Ox 08/13/20 07:34 36.8 C 77 18 111/71 95 08/12/20 22:39 36.9 C 74 18 116/74 96 08/12/20 20:10 74 106/70
[2020-08-13] MEDS: CITALOPRAM 20 MG TAB PO SCH (08:31)
[2020-08-13] MEDS: MULTIVITAMIN TAB PO SCH (08:31)
[2020-08-13] MEDS: FERROUS GLUCONATE 324 MG TAB PO SCH (08:31)
[2020-08-13] MEDS: METOPROLOL TARTRATE 25 MG TAB PO SCH (08:31)
[2020-08-13] MEDS: DOCUSATE SODIUM 100 MG CAP PO SCH (08:31)
[2020-08-13] MEDS: FEXOFENADINE HCL 180 MG TAB PO SCH (08:31)
[2020-08-13] MEDS: APIXABAN 5 MG TABLET PO SCH (08:31)
[2020-08-13] MEDS: PANTOprazole 40 MG TAB PO SCH (08:31)
[2020-08-13] MEDS: FLUTICASONE FUROATE 200MCG 14 PUFFS/INHALER INH SCH (08:32)
[2020-08-13] MEDS: POLYETHYLENE (MIRALAX) 17 GM PACK PO SCH (08:41)
--- NOTE | 2020-08-13 08:47 | Hospitalist Progress Note ---
Date of Service August 13, 2020 Assessment & Plan (1) Status post total left knee replacement: * POD#2 s/p LEFT total knee replacement with Dr. Delacruz. Pre-op h/h 13.8/39.7. EBL 5cc * Pain management, bowel regimen and DVT ppx with Eliquis 5 mg BID per the primary team to start in the morning * PT/OT consults --> to have home health at discharge * Hemovac output decreased * H/h 9.5/27.4 -- blood loss in setting of surgery on Eliquis/IVF (Hemovac with total output 450cc). Asymptomatic and continuing iron supplementation BID per primary service * Ok for discharge from medical standpoint (2) Paroxysmal atrial fibrillation: * Noted incidentally in the preoperative area prior to her right shoulder replacement surgery several years ago. Follows with Deanne Edwards from Cardiology * No recurrence since then, however she reports she was asymptomatic at that time. * Continues to remain in regular rhythm. Also in sinus rhythm on ECG 1 month ago at her preoperative visit * Continue metoprolol tartrate 25 mg BID * Anticoagulated with Eliquis 5 mg BID, resumed AM 08/12 * Has remained in normal rhythm on exam (3) Essential hypertension: * Blood pressures are controlled but slightly lower -- BP 107/70 currently * Continue metoprolol 25 mg BID * Home HCTZ 25 mg not ordered --> BPs on the lower end with some dehydration secondary to blood loss * Recommended resuming her home HCTZ tomorrow, 08/14 (4) Lung disease, restrictive: * No acute issues, 95% on RA * Continue Arnuity Ellipta inhaler (5) History of colon cancer: * History of such, 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 Diagnosed 02/22/2019, mucinous cystadenoma of the left ovary diagnosed 04/22/2018 (6) Mucinous cystadenocarcinoma of left ovary: * mucinous cystadenoma of the left ovary diagnosed 04/22/2018 during laparoscopic transverse colectomy for the above- sp oophorectomy on 04/22/18 (7) Chronic GERD: * Omeprazole not ordered and non-formulary --> will order pantoprazole while inpatient * No issues reported (8) Obesity (BMI 35.0-39.9 without comorbidity): * Diet and exercise encouraged (9) Osteopenia: * Continue calcium supplement (10) Generalized anxiety disorder: * Cont Celexa 10 mg daily (11) DVT prophylaxis: * SCDs * Eliquis as above Thank you for involving us in the care of Mrs. Porter. Please do not hesitate to call with questions or concerns. Medicine will sign off Admission and Anticipated Discharge Date Admission Date: August 11, 2020 Subjective Patient evaluated this morning. Eating/drinking without difficulty. Two BM yesterday. Pain well controlled with tylenol alone. Did well with therapy today. Drain removed last evening. Denies fever, chills, chest pain, shortness of breath, palpitations, fatigue, abdominal pain, nausea, vomiting, or dysuria at this time. Plans for home today with home health. Review of Systems Review of Systems: All systems reviewed & are unremarkable except as noted in HPI & below Physical Exam Constitutional: WD/WN, vitals as above + obese; no acute distress Eyes: + anicteric sclerae and PERRL ENMT: Ears: no hearing impairment Nose: no external nose abnormality Neck: normal visual inspection Respiratory: normal respiratory effort, lungs clear to auscultation Cardiovascular: RRR, no murmur, no edema Gastrointestinal (Abdomen): normal bowel sounds, soft, nontender, no hepatosplenomegaly Musculoskeletal: dressing to left knee c/d/i calves non-tender to palpation Prevena intact strength 5/5 with dorsiflexion/plantar flexion NVI Skin: warm, dry Neurologic: patellar DTR's 2+ bilat, sensation intact and PERRL, EOMI, accomm odation nl, no face palsy, no dysarthria Psychiatric: A+Ox3, euthymic affect Lymphatic: no cervical or axillary lymphadenopathy Results & Data Results & Data ([facility]) Vital Signs (Past 12 Hours) Vital Signs Temp Pulse Resp BP Pulse Ox 08/13/20 07:34 36.8 C 77 18 111/71 95 08/12/20 22:39 36.9 C 74 18 116/74 96 Laboratory Results 08/13/20 08/13/20 Range/Units 06:30 06:30 WBC 5.68 (4.8-10.8) K/uL RBC 2.84 L (4.2-5.4) M/uL Hgb 9.5 L (12.0-16.0) g/dL Hct 27.4 L (37-47) % MCV 96.5 (80-100) fL MCH 33.5 (25-34) pg MCHC 34.7 (32-36) g/dL RDW Std Deviation 42.6 (36.4-46.3) fL RDW Coeff of Nidhi 12.0 (11.5-14.5) % Plt Count 223 (130-400) K/uL MPV 9.4 (7.4-10.4) fL Sodium 136 (136-145) mmol/L Potassium 3.8 (3.5-5.1) mmol/L Chloride 102 (98-107) mmol/L Carbon Dioxide 27 (21-32) mmol/L Anion Gap 7.0 (3-11) BUN 16 (7-18) mg/dl Creatinine 0.63 (0.6-1.2) mg/dl Est Cr Clr Drug Dosing 82.7 ml/min Est GFR ( Amer) 105.3 Est GFR (Non-Af Amer) 90.9 BUN/Creatinine Ratio 24.7 H (10-20) Glucose 91 (70-99) mg/dl Calcium 8.0 L (8.5-10.1) mg/dl PG Care Time/CCT Total # of Minutes Spent Total Time Spent with Patient: Total time spent is greater than 50% in coordination of care (as documented) at patient's floor/unit and/or counseling patient: Coding Level of Care Code 26595 Subseq Hosp Care Lvl 2 Diagnoses Status post total left knee replacement Z96.652 Paroxysmal atrial fibrillation I48.0 Essential hypertension I10 Lung disease, restrictive J98.4 History of colon cancer Z85.038 Mucinous cystadenocarcinoma of left ovary C56.2 Chronic GERD K21.9 Obesity (BMI 35.0-39.9 without comorbidity) E66.9 Osteopenia M85.80 Generalized anxiety disorder F41.1 DVT prophylaxis Z29.9
--- NOTE | 2020-08-16 13:38 | Discharge Summary (DS) ---
DISCHARGE DIAGNOSIS: Osteoarthritis, left knee. SECONDARY DIAGNOSES: History of paroxysmal atrial fibrillation on Eliquis p.o. b.i.d., essential hypertension, restrictive lung disease, history of colon carcinoma, history of mucinous cyst adenocarcinoma of the left ovary, chronic GERD, obesity, osteopenia, generalized anxiety disorder. CONSULTS: Yvonne Urias PA-C/Kathi Rosenbaum MD COMPLICATIONS: None. PROCEDURES: Left total knee arthroplasty performed by Dr. Delacruz on 08/11/2020. BRIEF HISTORY: As dictated in history and physical. HOSPITAL SUMMARY: The patient was admitted on the above-noted date and had the above-noted surgery performed, which she tolerated well. Hospitalist consultation was placed and was performed on 08/11/2020 and they continued to follow the patient during her stay. On the first postoperative day, she was going through her physical therapy session ambulating in the hallways. She returned to sit at the bedside and states that she had a numb foot that morning and has weak dorsiflexion. No other complaints. Pain controlled. Denied shortness of breath or chest pain or lightheadedness. Dressings were clean, dry and intact. Calves were soft, nontender. She had residual numbness down the lower extremity from the knee to the dorsum of the foot. Minimal dorsiflexion of the foot, but she was able to dorsiflex the great toe. Hemovac drainage was 100 mL from the previous shift. Prevena was functioning. Vital signs were stable and she was afebrile. She was continued on PT and OT protocols, weightbearing as tolerated. Continue DVT prophylaxis with Eliquis b.i.d., SCDs, LENCHO kennye and continued on current pain management at that time. By her second postoperative day, she continued to do well. She had no complaints. Pain was controlled. She was progressing with her physical therapy. Prevena was clean, dry and intact. No drainage. Toes and ankle were mobile. No calf tenderness. Vital signs were stable. She was alert and oriented x3. Hemoglobin during this stay had dropped to 9.5. She was otherwise remaining stable and it was felt she could be discharged to home on 08/13/2020. For further review, please see chart. LABORATORY AND X-RAY DATA: As per chart. DISCHARGE INSTRUCTIONS: The patient was discharged to home on 08/13/2020. DIET: Heart healthy. ACTIVITY: Weightbearing as tolerated on the affected extremity. Follow TK instruction sheets and special care instructions as noted. Follow up with Dr. Delacruz in 2 weeks. The patient to call for appointment if one has not been made for you. DISCHARGE MEDICATIONS: Acetaminophen 1000 mg p.o. q. 8 hours, oxycodone 5 mg p.o. q. 4 hours p.r.n. Resume home meds as listed including Eliquis 5 mg p.o. b.i.d. for DVT prophylaxis.
== END 2020-08-13 12:00 | disposition home health service (06) ==
LOC: ASU 08:55 → 3W 08:55

== ENCOUNTER 2020-12-30 05:03 | Observation (INO) ==
--- NOTE | 2020-12-01 11:19 | Anesthesiology Consultation ---
Date of Service December 01, 2020 Assessment & Plan (1) Encounter for pre-operative examination: COVID Status: As of 11/26 nurse assessment, patient denies travel to endemic area, known exposure/sick contacts, or symptoms of COVID19. Preoperative COVID19 testing to be completed on 12/16 at [facility] per [place]. S/P L TKA 08/11/[address] [facility] x 1 attempt. No complications. Patient had PCP and cardiology clearance prior to TKA in July 2020. Cardiology 07/28/20 = "She is currently stable and asymptomatic from a cardiovascular standpoint with no anginal symptoms occurring at >4 METS of activity. She has no evidence of CHF or significant valvular abnormality. Her heart rate and blood pressure are well controlled. Given this information, the patient is at an acceptable risk to proceed with upcoming surgery without any additional cardiovascular testing or intervention. She may hold her Eliquis for 3 days prior to surgery and resume once safe from a bleeding standpoint." Chart Review Chart Review: Acceptable Risk for Surgery and Patient NOT seen in Pre Admission Testing History Surgery Operation Date: 12/22/20 07:15 Proposed Procedures p Right Total Knee Arthroplasty - Rigo Delacruz MD Height/Weight Height: 5 ft 2 in Weight: 80.286 kg Allergies Allergy/AdvReac Type Severity Reaction Status Date / Time azithromycin Allergy Intermediate Hives Verified 11/26/20 16:08 Bactrim Allergy Intermediate HIVES Verified 02/19/18 10:25 cefuroxime Allergy Intermediate Hives Verified 11/26/20 16:08 cephalexin Allergy Intermediate Hives Verified 11/26/20 16:08 clarithromycin Allergy Intermediate Hives Verified 11/26/20 16:08 oxaprozin Allergy Intermediate Hives Verified 11/26/20 16:08 sulfamethoxazole Allergy Intermediate Hives Verified 11/26/20 16:08 trimethoprim Allergy Intermediate Hives Verified 11/26/20 16:08 trovafloxacin Allergy Intermediate Hives Verified 11/26/20 16:08 albuterol Allergy Unknown Rash Verified 11/26/20 16:08 sterapred Allergy Unknown Unknown Uncoded 11/26/20 16:08 Medications Home Medications Medication Instructions Recorded Confirmed Last Taken herbal complex no.174 450 mg 450 mg PO BID cap 07/29/19 11/26/20 07/28/20 capsule flaxseed oil 1,000 mg PO QPM 08/17/19 11/26/20 07/28/20 apixaban 5 mg tablet 5 mg PO BID #180 tab 07/07/20 11/26/20 08/07/20 22:30 calcium carbonate 600 mg calcium 600 mg PO BID #180 tab 07/07/20 11/26/20 08/10/20 22:00 (1,500 mg) tablet metoprolol tartrate 25 mg tablet 25 mg PO BID #180 tab 07/07/20 11/26/20 08/11/20 05:00 citalopram 10 mg PO QAM 07/09/20 11/26/20 08/11/20 05:30 hydrochlorothiazide 25 mg PO QAM 07/09/20 11/26/20 08/09/20 08:00 levothyroxine 88 mcg PO QAM 07/09/20 11/26/20 08/11/20 05:00 multivitamin 1 tab PO QAM 07/09/20 11/26/20 07/28/20 omega-3 fatty acids [Fish Oil 1,000 mg PO QAM 07/09/20 11/26/20 07/28/20 Concentrate] omeprazole 20 mg PO QAM 07/09/20 11/26/20 08/11/20 05:00 Azo Bladder Control 1 cap PO QAM 07/16/20 11/26/20 07/28/20 acetaminophen [Tylenol Extra 1,000 mg PO BID 11/26/20 11/26/20 Unknown Strength] fexofenadine [Ruchi] 180 mg PO QAM 11/26/20 11/26/20 Unknown Past Medical History Medical History (Updated 12/01/20 @ 11:08 by Jono Ramacahndran) Allergic rhinitis Chronic GERD controlled Essential hypertension Generalized anxiety disorder Generalized osteoarthritis of multiple sites History of colon cancer s/p colon reaction (2018)/no chemo Hypothyroid Lumbar disc disease Lung disease, restrictive Follows with [facility] pulmonology. Last seen 09/2020, to f/u in 09/2021. Obesity Osteopenia Paroxysmal atrial fibrillation on Eliquis Past Family History Family History (Updated 11/26/20 @ 16:22 by Umu Heredia RN) Mother Coronary heart disease Father Melanoma Cancer skin Brother Cancer Agent [place] Grandmother (Maternal) Goiter Aunt Family history of diabetes mellitus Denies family history of Ovarian cancer Prostate cancer Myocardial infarction Breast cancer Colorectal cancer Past Surgical History Surgical History H/O arthroscopy of knee right H/O bilateral salpingo-oophorectomy H/O colonoscopy History of back surgery x4 History of bowel resection 2018 History of hernia repair x3 History of left knee replacement Hx of foot surgery bunionectomy (R/L), hammertoe repair (left) Hx of shoulder surgery left - for torn ligament Hx of total shoulder replacement right Social History Smoking Status: Former smoker tobacco type: cigarettes Do You Dip or Chew Tobacco: No Smoking End Date: QUIT 45+ YRS AGO Hx Alcohol Use: Yes Alcohol type: wine alcohol intake frequency: 0-2 drinks per day Hx Substance Use: No substance use type: does not use Testing Laboratory Results Blood Type A Positive 11/30/20 13:36 Antibody Screen NEGATIVE 11/30/20 13:36 11/30/20 WBC: 4.46 H/H: 14.4/42.7 PLATELETS: 328 SODIUM: 136 POTASSIUM: 3.4 CHLORIDE: 99 CO2: 33 BUN: 18 CREATININE: 0.67 GLUCOSE: 84 PT: 11.3 PTT: 32 INR: 1.1 A1C: 5.4% Electrocardiogram Date: 07/16/20 Findings: + NSR @ (61bpm) Possible Old Inferior infarct Abnormal ECG When compared with ECG of 09-JAN-2019 11:36, Borderline criteria for Inferior infarct are now Present T wave inversion no longer evident in Inferior leads Nonspecific T wave abnormality no longer evident in Lateral leads. *EKG done in [facility] prior to 08/11/20 TKA. Patient seen for cardiology clearance, deemed no further workup needed. Chest X-Ray Date: 07/16/20 FINDINGS: Lung volumes are normal. Lungs are clear. There is no pneumothorax or pleural effusion. Cardiac size is normal. Mediastinal contours are normal. There is no evidence for pulmonary edema. Right shoulder arthroplasty and lumbar spine fusion hardware is partially imaged. IMPRESSION: No acute cardiopulmonary findings.
--- NOTE | 2020-12-12 18:56 | History & Physical Report ---
Date of Service December 12, 2020 Assessment & Plan (1) Primary osteoarthritis of right knee: Treatment options discussed. She has failed conservative measures as above. Risks, benefits and alternatives to surgery including but not limited to infection, DVT, pain, stiffness, need for revision surgery, damage to blood vessels, damage to nerves, PE, , were discussed with the patient and they wish to proceed. Plan will be for right total knee arthroplasty at [facility] on 12/30/[address] Delacruz. Will plan on resuming home Eliquis post operatively. Will plan on home health PT after discharge. All questions answered. History of Present Illness Chief Complaint: Right knee pain Primary Care Provider: Omayra Lane MD Patient with PMHx significant for A-fib, DHAVAL, hypothyroidism, GERD, colon Ca presents with longstanding right knee pain. She has previous left knee replacement which has done well. She has failed conservative measures including cortisone injections and viscoleastic injections. She would like to proceed with right TKA. Patient denies headaches, sweats, fevers, chills, double vision, blurred vision, cough, sore throat, dysphagia, chest pain, sob, wheezing, n/v/d/c, numbness, tingling, fatigue, urinary symptoms, mood disorders. ROS positive for right knee pain and stiffness. Allergies Allergy/AdvReac Type Severity Reaction Status Date / Time azithromycin Allergy Intermediate Hives Verified 11/26/20 16:08 Bactrim Allergy Intermediate HIVES Verified 02/19/18 10:25 cefuroxime Allergy Intermediate Hives Verified 11/26/20 16:08 cephalexin Allergy Intermediate Hives Verified 11/26/20 16:08 clarithromycin Allergy Intermediate Hives Verified 11/26/20 16:08 oxaprozin Allergy Intermediate Hives Verified 11/26/20 16:08 sulfamethoxazole Allergy Intermediate Hives Verified 11/26/20 16:08 trimethoprim Allergy Intermediate Hives Verified 11/26/20 16:08 trovafloxacin Allergy Intermediate Hives Verified 11/26/20 16:08 albuterol Allergy Unknown Rash Verified 11/26/20 16:08 sterapred Allergy Unknown Unknown Uncoded 11/26/20 16:08 Home Medications Medication Instructions Recorded Confirmed Type herbal complex no.174 450 mg 450 mg PO BID cap 07/29/19 11/26/20 History capsule flaxseed oil 1,000 mg PO QPM 08/17/19 11/26/20 History apixaban 5 mg tablet 5 mg PO BID #180 tab 07/07/20 11/26/20 Rx calcium carbonate 600 mg calcium 600 mg PO BID #180 tab 07/07/20 11/26/20 Rx (1,500 mg) tablet metoprolol tartrate 25 mg tablet 25 mg PO BID #180 tab 07/07/20 11/26/20 Rx citalopram 10 mg PO QAM 07/09/20 11/26/20 History hydrochlorothiazide 25 mg PO QAM 07/09/20 11/26/20 History levothyroxine 88 mcg PO QAM 07/09/20 11/26/20 History multivitamin 1 tab PO QAM 07/09/20 11/26/20 History omega-3 fatty acids [Fish Oil 1,000 mg PO QAM 07/09/20 11/26/20 History Concentrate] omeprazole 20 mg PO QAM 07/09/20 11/26/20 History Azo Bladder Control 1 cap PO QAM 07/16/20 11/26/20 History acetaminophen [Tylenol Extra 1,000 mg PO BID 11/26/20 11/26/20 History Strength] fexofenadine [Ruchi] 180 mg PO QAM 11/26/20 11/26/20 History Past Med/Surg History Medical History (Updated 12/12/20 @ 18:54 by Ezekiel Lozano) Allergic rhinitis Chronic GERD controlled Essential hypertension Generalized anxiety disorder Generalized osteoarthritis of multiple sites History of colon cancer s/p colon reaction (2018)/no chemo Hypothyroid Lumbar disc disease Lung disease, restrictive Follows with [facility] pulmonology. Last seen 09/2020, to f/u in 09/2021. Obesity Osteopenia Paroxysmal atrial fibrillation on Eliquis Surgical History H/O arthroscopy of knee right H/O bilateral salpingo-oophorectomy H/O colonoscopy History of back surgery x4 History of bowel resection 2018 History of hernia repair x3 History of left knee replacement Hx of foot surgery bunionectomy (R/L), hammertoe repair (left) Hx of shoulder surgery left - for torn ligament Hx of total shoulder replacement right Family History (Updated 11/26/20 @ 16:22 by Umu Heredia, RN) Mother Coronary heart disease Father Melanoma Cancer skin Brother Cancer Agent [place] Grandmother (Maternal) Goiter Aunt Family history of diabetes mellitus Denies family history of Ovarian cancer Prostate cancer Myocardial infarction Breast cancer Colorectal cancer Social History Smoking Status: Former smoker Age Started Using Tobacco: 17; Age Quit Using Tobacco: 29; packs per day: 0.5; Smoking End Date: QUIT 45+ YRS AGO; Second Hand Exposure: Yes (PARENTS SMOKED); Do You Dip or Chew Tobacco: No; Hx Alcohol Use: Yes Alcohol type: wine Hx Substance Use: No Preferred Language: Mongolian Communication Ability: Effective Visual Impairment: Partially Limited Hearing Ability: Normal Water/Wastewater Engineer Required: No Beliefs That Will Affect Care: None marital status: Current Living Situation: Spouse current occupational status: retired Other Information That Helps Us Care for You: No Feels Safe at Home: Yes Safety Concerns: Feels Safe At This Time Childhood Exposure to Second-Hand Smoke: No caffeine: Yes (cappucino/tea/ coke rarely) during the past year weight has: remained stable Dental Care, Regularly: Yes Physical Activity Frequency: Daily Seatbelt Use: always Sunscreen Use: Yes Do you think of yourself as: straight/heterosexual Assistive Devices: Denture - Upper and Glasses Review of Systems All systems reviewed & are unremarkable except as noted in HPI & below Physical Exam Constitutional: well developed and well nourished; no acute distress Eyes: PERRL, conjunctivae normal, anicteric sclerae ENMT: external ear and nose normal, oropharynx normal Neck: trachea midline, no thyromegaly Respiratory: normal respiratory effort, lungs clear to auscultation Cardiovascular: RRR, no murmur, no edema Musculoskeletal: Right knee: Mild effusion, tenderness lateral joint line. Valgus alignment. ROM 5-120 degrees. stable to valgus and varus stress. Positive Keyon's Skin: no rashes, warm and dry Neurologic: patellar DTR's 2+ bilat, sensation intact Psychiatric: A+Ox3, euthymic affect Results & Data ([facility]) Laboratory Results Lab Results 11/30/20 Range/Units 13:36 Blood Type A Positive Antibody Screen NEGATIVE Diagnostic Findings Rigth knee: X-rays of her right knee demonstrate that on PA 40-degree flexion view she is clearly bone on bone in the lateral compartment and has tricompartmental osteophytes consistent with tricompartmental osteoarthritis. He left knee has a well-aligned Persona total knee replacement.
[2020-12-30] MEDS: ACETAMINOPHEN 500 MG TAB PO SCH ×4 (05:44→21:36)
[2020-12-30] MEDS ORDERED: GABAPENTIN 300 MG CAP PO SCH (06:00)
[2020-12-30] MEDS ORDERED: FAMOTIDINE 20 MG TAB PO SCH (06:00)
[2020-12-30] MEDS ORDERED: METOCLOPRAMIDE HCL 10 MG TABLET PO SCH (06:00)
[2020-12-30] MEDS ORDERED: CeleBREX 200 MG CAP PO SCH (06:00)
[2020-12-30] MEDS ORDERED: ROPIVACAINE 0.5% HCL/PF 150 MG, BUPIVACAINE 0.75% MPF 20 ML, EPINEPHrine 30MG/30ML (OR ... INSTIL SCH (06:00)
[2020-12-30] MEDS ORDERED: dexAMETHasone 4 MG TAB PO SCH (06:00)
[2020-12-30] MEDS ORDERED: LR 500ML BOLUS, THEN 15ML/HR IV SCH (06:00)
[2020-12-30] MEDS ORDERED: VANCOMYCIN HCL 1,250 MG in SODIUM CHLORIDE 0.9% 250 ML IV SCH ×3 (06:00→17:45)
[2020-12-30] MEDS ORDERED: BUPIVACAINE 0.25% 30 ML VIAL ONE (06:30)
[2020-12-30] MEDS ORDERED: BUPIVACAINE 0.5 % 5 MG/1 ML PF 10ML VIAL ONE (06:30)
[2020-12-30] MEDS ORDERED: ORTHO JOINT ANESTHETIC ONE (06:58)
[2020-12-30] MEDS ORDERED: BACITRACIN INJ 50,000 UNIT VIAL ONE (06:59)
[2020-12-30] MEDS ORDERED: MIDAZOLAM HCL 1 MG/ML 2ML VIAL ONE (07:03)
[2020-12-30] MEDS ORDERED: TRANEXAMIC ACID / 0.7% NACL 1000MG/100ML BAG IV ONE (07:04)
--- NOTE | 2020-12-30 07:05 | History & Physical Bridge Note ---
Date of Service December 30, 2020 History & Physical Bridge Note I have examined the patient, reviewed the History & Physical and in the interval since the performance of the History & Physical I have noted the following changes of clinical significance: no changes noted
[2020-12-30] MEDS ORDERED: TRANEXAMIC ACID / 0.7% NACL 1,000 MG/100 ML BAG IV ONE ×2 (07:12→09:01)
[2020-12-30] MEDS ORDERED: ePHEDrine sulfate 50 MG/ML AMP IV PRN (07:50)
[2020-12-30] MEDS ORDERED: ATROPINE SULFATE 0.1 MG/ML 10ML SYR IV PRN (07:50)
[2020-12-30] MEDS ORDERED: PROPOFOL IV EMULSION 10 MG/ML 20 ML VIAL IV ONE ×2 (08:08→08:53)
[2020-12-30] MEDS ORDERED: LIDOCAINE HCL 2% 2 ML VIAL/AMP(20MG/ML) INFIL ONE (08:08)
[2020-12-30] MEDS ORDERED: ONDANSETRON INJ 2 MG/ML 2 ML VIAL ONE (08:51)
[2020-12-30] MEDS ORDERED: fentaNYL citrate 100 MCG/2 ML VIAL ONE (08:51)
[2020-12-30] MEDS ORDERED: SUCCINYLCHOLINE CHLORIDE 20 MG/ML 10 ML VIAL IV ONE (08:51)
[2020-12-30] MEDS ORDERED: DEXAMETHASONE SOD INJ 4 MG/ML VIAL ONE (08:51)
--- NOTE | 2020-12-30 09:35 | Post Operative Brief Note ---
Immediate Post Op Note v1 Date of Surgery December 30, 2020 Pre & Post Diagnosis Operation Date: 12/30/20 07:15 Pre-Op Diagnosis: Primary Osteoarthritis Knee Right Post-Op Diagnosis: Primary Osteoarthritis Knee Right I identified the patient and participated in the time-out.: Yes Procedure Operation Date: 12/30/20 07:15 Actual Procedures p Right Total Knee Arthroplasty(Right) - Rigo Delacruz MD Surgeon Rigo Delacruz MD Knot Cutter Paulino BRANCH Estimated Blood Loss 10 Findings Consistent with Post-Op Diagnosis Specimens Bone cuts Anesthesia Type MAC Spinal Regional Complications none Disposition Accompanied Patient To Recovery: No Disposition: Recovery Room Overlapping Procedure I was immediately available: during the entire case.
--- NOTE | 2020-12-30 09:54 | Operative Report ---
Post Operative Report Pre & Post Diagnosis Operation Date: 12/30/20 07:15 Pre-Op Diagnosis: Primary Osteoarthritis Knee Right Post-Op Diagnosis: Primary Osteoarthritis Knee Right I identified the patient and participated in the time-out.: Yes Procedure Operation Date: 12/30/20 07:15 Actual Procedures p Right Total Knee Arthroplasty(Right), lateral release, superficial wound VAC application- Rigo Delacruz MD Surgeon Rigo Delacruz MD Supervisor Tree Trimming Paulino BRANCH Estimated Blood Loss 10 Findings Consistent with Post-Op Diagnosis Specimens Bone cuts Drains 2 Hemovac Anesthesia Type MAC Spinal Regional Complications none Disposition Accompanied Patient To Recovery: No Disposition: Recovery Room Indications 70-year-old female chronic right knee pain failed conservative management. Status post prior successful left knee replacement. Radiographs demonstrate she is [id number] lateral compartment with a valgus knee. Description of Procedure Patient was taken to the operating room placed supine on the operating table and anesthetized under spinal MAC regional anesthesia. Exam under anesthesia demonstrated good range of motion valgus knee moderate effusion old arthroscopic portal scars. A pneumatic tourniquet was placed about the moderately obese thigh of the right lower extremity. The right lower extremity was prepped and draped in usual fashion. The leg was elevated exsanguinated with an Esmarch bandage and the pneumatic was raised to 350 mm mercury. An anterior incision was made across the right knee. The skin was incised longitudinally subcutaneous flaps were elevated and an incision was made through the medial retinaculum extending up into the mid third of the quadriceps tendon and extended down to the medial tibial tubercle. Intra-articular findings demonstrated areas of grade IV chondromalacia on the medial femoral condyle as well as the lateral compartment was [id number] with a chronic lateral meniscus tear. The knee was exposed by excising the infrapatellar fat pad, excising the meniscal remnants and anterior cruciate ligament. Any inflamed synovial tissue was resected. The fat pad over the anterior femur was resected for placement of the component in that area. The lateral synovial bands were release. The femur was exposed. The custom femoral cutting block was pinned in position. The distal femoral cutting block was applied. The distal femoral cut was made with the oscillating saw. The size 8, 4-in-1 cutting block was placed. The anterior and posterior chamfer cuts were made. The knee was extended and a subperiosteal peel lateral release was performed around the patella. The patella width was measured and width was reproduced using freehand cut technique. The 32 x 8.5 millimeter symmetrical patella was used. 3 drill holes are made for the pegs. The tibia was exposed. A custom tibial cutting block was positioned and drill holes were made for the cutting guide. Cutting guide was placed and the proximal cut was made with the oscillating saw. All osteophytes were resected. The lamina slicing machine operator was used to assess ligamentous balance and the ligaments were balanced in extension and flexion. The tibia was reexposed and measured for a size D tibial component. This was externally rotated in line with the tibial tubercle and the fixation pins were drilled. The proximal tibia was fashioned with the drill and punch. The size 8 CR femoral trial was inserted. The trial MC inserts were used. The 10 mm insert gave balanced ligaments through full range of motion. The patella tracked with some lateral liftoff so a lateral release was performed leaving the synovium intact and patella tracks centrally. the trials were removed. The orthomix anesthetic cocktail was injected per protocol. The knee was then copiously irrigated with pulsatile lavage antibiotic solution with bacitracin. The final components were cemented with Simplex cement. The final components were CR 8 narrow right femoral persona Jam Biomet femoral component, D right tibia, 10 MC polyethylene, 32 point 0.5 symmetrical patella.. After the cement cured with the knee in full extension the Betadine soak was used per protocol. The knee joint was copiously irrigated with antibiotic solution with bacitracin. 2 drains were brought out laterally and connected to a Hemovac. The quadriceps tendon and medial retinaculum were closed with interrupted [id number] #1 Vicryl sutures. The knee was taken through a full range of motion and repair was secure. The subcutaneous tissues were closed with 2-0 Vicryl sutures and skin was closed with terri. Mia and Acticoat superficial wound VAC was applied and the patient tolerated the procedure well. Paulino BRANCH my physician collections assistant, assisted in soft tissue retraction instrument management leg positioning the closure and application of superficial wound VAC and will participate in the postoperative care of the patient. I attest to the content of the Intraoperative Record and any orders documented therein. Any exceptions are noted below.
--- NOTE | 2020-12-30 10:18 | Anesthesiology Progress Note ---
Date of Service December 30, 2020 Anesthesia Post Procedure Vital Signs Vital Signs: Temp Pulse Pulse Resp BP Pulse Ox 12/30/20 10:05 63 12 124/82 100 12/30/20 09:55 63 13 117/73 100 12/30/20 09:45 66 15 106/68 99 12/30/20 09:39 36.9 C 67 14 103/63 99 12/30/20 05:30 36.7 C 65 18 146/82 H 97 Pain Intensity Right Knee: Pain Intensity: 0 Transfer of Care Handoff Completed per policy Notes Mental Status: alert / awake / arousable and participated in evaluation Nausea / Vomiting: adequately controlled Pain: adequately controlled Airway Patency, RR, SpO2: stable & adequate BP & HR: stable & adequate Hydration State: stable & adequate Neuraxial Anesthesia: was administered and sensory block is resolving Anesthetic Complications: no major complications apparent and Pt Satisfied with anesthetic care
--- NOTE | 2020-12-30 10:29 | XRay Report ---
RIGHT KNEE 2 VIEWS History: Right total knee arthroplasty. Degenerative arthritis. Postop. FINDINGS: The patient is status post a right total knee arthroplasty. The hardware is intact. No frac ture or dislocation. Skin terri and surgical drains are in place. IMPRESSION: Right total knee arthroplasty. No evidence for hardware complication. ACT 112: Negative or not required by law. Electronically signed by: Jonathan Tay M.D. 12/30/2020 10:27 AM
[2020-12-30] MEDS ORDERED: MAGNESIUM HYDROXIDE SUSP 30 ML UDC PO PRN (11:01)
[2020-12-30] MEDS ORDERED: METOCLOPRAMIDE HCL INJ 5 MG/ML 2 ML VIAL IV PRN (11:01)
[2020-12-30] MEDS ORDERED: NALOXONE HCL 0.4 MG/1 ML VIAL/CARP IV PRN (11:01)
[2020-12-30] MEDS ORDERED: VANCOMYCIN CONSULT ACTIVE PRN (11:01)
[2020-12-30] MEDS ORDERED: oxyCODONE HCL IR 5 MG TAB (IMMEDIATE RELEASE) PO PRN (11:01)
[2020-12-30] MEDS ORDERED: ONDANSETRON INJ 2 MG/ML 2 ML VIAL IV PRN (11:01)
[2020-12-30] MEDS ORDERED: bisacodyL 10 MG SUPP PR PRN (11:01)
[2020-12-30] MEDS ORDERED: HYDROmorphone INJ 0.5 MG/0.5 ML SYR IV PRN (11:01)
[2020-12-30] MEDS: SODIUM CHLORIDE 0.9% 1000ML 1,000 ML IV SCH ×2 (11:39→21:42)
--- NOTE | 2020-12-30 11:45 | Hospitalist Consultation ---
Date of Consultation December 30, 2020 Assessment & Plan (1) Primary osteoarthritis of right knee: 12/30/20 Right Total Knee Arthroplasty Anesthesia Type: MAC Spinal Regional Surgeon: Rigo Delacruz ortho has elected to restart apixiban for DVT prevention ( typically uses for afib) (2) Paroxysmal atrial fibrillation: continues on metoprolol and will restart apixaban 12/31/20 (3) Lung disease, restrictive: pt seems asymptomatic at this time (4) Chronic GERD: remains on pantoprazole (5) Hypothyroid: continues on synthoid History of Present Illness Attending Physician: Rigo Delacruz MD Pt is without distress, no shortness of breath or chest pain, anesthesia is wearing off and she has good pain control vital signs are stable and medications restarted appropriately Allergies Allergy/AdvReac Type Severity Reaction Status Date / Time azithromycin Allergy Intermediate Hives Verified 12/30/20 05:36 Bactrim Allergy Intermediate HIVES Verified 02/19/18 10:25 cefuroxime Allergy Intermediate Hives Verified 12/30/20 05:36 cephalexin Allergy Intermediate Hives Verified 12/30/20 05:36 clarithromycin Allergy Intermediate Hives Verified 12/30/20 05:36 oxaprozin Allergy Intermediate Hives Verified 12/30/20 05:36 sulfamethoxazole Allergy Intermediate Hives Verified 12/30/20 05:36 trimethoprim Allergy Intermediate Hives Verified 12/30/20 05:36 trovafloxacin Allergy Intermediate Hives Verified 12/30/20 05:36 albuterol Allergy Unknown Rash Verified 12/30/20 05:36 sterapred Allergy Unknown Unknown Uncoded 12/30/20 05:36 Home Medications Medication Instructions Recorded Confirmed Type herbal complex no.174 450 mg 450 mg PO BID cap 07/29/19 12/30/20 History capsule flaxseed oil 1,000 mg PO QPM 08/17/19 12/30/20 History apixaban 5 mg tablet 5 mg PO BID #180 tab 07/07/20 12/30/20 Rx calcium carbonate 600 mg calcium 600 mg PO BID #180 tab 07/07/20 12/30/20 Rx (1,500 mg) tablet metoprolol tartrate 25 mg tablet 25 mg PO BID #180 tab 07/07/20 12/30/20 Rx citalopram 10 mg PO QAM 07/09/20 12/30/20 History hydrochlorothiazide 25 mg PO QAM 07/09/20 12/30/20 History levothyroxine 88 mcg PO QAM 07/09/20 12/30/20 History multivitamin 1 tab PO QAM 07/09/20 12/30/20 History omega-3 fatty acids [Fish Oil 1,000 mg PO QAM 07/09/20 12/30/20 History Concentrate] omeprazole 20 mg PO QAM 07/09/20 12/30/20 History Azo Bladder Control 1 cap PO QAM 07/16/20 12/30/20 History acetaminophen [Tylenol Extra 1,000 mg PO BID 11/26/20 12/30/20 History Strength] fexofenadine [Ruchi] 180 mg PO QAM 11/26/20 12/30/20 History Patient History Medical History Allergic rhinitis Chronic GERD controlled Essential hypertension Generalized anxiety disorder Generalized osteoarthritis of multiple sites History of colon cancer s/p colon reaction (2018)/no chemo Hypothyroid Lumbar disc disease Lung disease, restrictive Follows with [facility] pulmonology. Last seen 09/2020, to f/u in 09/2021. Obesity Osteopenia Paroxysmal atrial fibrillation on Eliquis Surgical History H/O arthroscopy of knee right H/O bilateral salpingo-oophorectomy H/O colonoscopy History of back surgery x4 History of bowel resection 2018 History of hernia repair x3 History of left knee replacement Hx of foot surgery bunionectomy (R/L), hammertoe repair (left) Hx of shoulder surgery left - for torn ligament Hx of total shoulder replacement right Family History (Updated 11/26/20 @ 16:22 by Umu Heredia, JONO) Mother Coronary heart disease Father Melanoma Cancer skin Brother Cancer Agent [place] Grandmother (Maternal) Goiter Aunt Family history of diabetes mellitus Denies family history of Ovarian cancer Prostate cancer Myocardial infarction Breast cancer Colorectal cancer Social History Smoking Status: Former smoker Age Started Using Tobacco: 17; Age Quit Using Tobacco: 29; packs per day: 0.5; Smoking End Date: QUIT 45+ YRS AGO; Second Hand Exposure: No; Do You Dip or Chew Tobacco: No; Tobacco Cessation Education Requested by Patient: No Hx Alcohol Use: Yes Alcohol type: wine Hx Substance Use: No Preferred Language: Telugu Communication Ability: Effective Visual Impairment: Partially Limited Hearing Ability: Normal Software Designer Required: No Beliefs That Will Affect Care: None marital status: Current Living Situation: Spouse current occupational status: retired Other Information That Helps Us Care for You: No Feels Safe at Home: Yes Safety Concerns: Feels Safe At This Time Childhood Exposure to Second-Hand Smoke: No caffeine: Yes (cappucino/tea/ coke rarely) during the past year weight has: remained stable Dental Care, Regularly: Yes Physical Activity Frequency: Daily Seatbelt Use: always Sunscreen Use: Yes Do you think of yourself as: straight/heterosexual Assistive Devices: None Review of Systems Review of Systems: Mild distress and fatigue no headache, blurry or double vision no speech or swallowing issues no chest pain, pressure or palpitations Baseline shortness of breath, cough or wheezes no abdominal pain, nausea or vomiting, diarrhea or constipation no dysuria, hematuria or frequency Some right knee discomfort but anesthesia persist postoperatively no back pain, CVA tenderness or radicular pain no bruising, bleeding or rashes no focal signs of weakness or numbness or altered sensation no complaints of anxiety or depression.. Physical Exam Physical Exam: The patient appeared well nourished and normally developed. Vital signs as documented. Head exam is normocephalic atraumatic no scleral icterus Neck is without JVD, thyromegaly, or carotid bruits. Lungs are clear to auscultation,decrease air movement Cardiac exam, Rhythm is regular.. No murmurs, rubs or gallops. Abdominal exam reveals normal bowel sounds, soft non tender, no masses Extremity on the right has compression wrap and hemovac in place Neurologic exam is alert and oriented, can wiggle toes on right foot , sensation coming back Skin is without bruises or rashes Psychologically is without concerns for anxiety or depression Results & Data Results & Data ([facility]) Vital Signs (Past 12 Hours) Vital Signs Temp Pulse Pulse Resp BP Pulse Ox 12/30/20 11:00 97.5 F L 63 18 126/79 98 12/30/20 10:35 98.4 F 63 15 122/93 100 02/11/21 10:25 98.4 F 62 21 123/78 100 12/30/20 10:15 98.4 F 62 17 124/80 100 12/30/20 10:05 63 12 124/82 100 12/30/20 09:55 63 13 117/73 100 12/30/20 09:45 66 15 106/68 99 12/30/20 09:39 98.4 F 67 14 103/63 99 12/30/20 05:30 98.1 F 65 18 146/82 H 97 PG Care Time/CCT Total # of Minutes Spent Total Time Spent with Patient: Total time spent is greater than 50% in coordination of care (as documented) at patient's floor/unit and/or counseling patient: Coding Level of Care Code 59700 Inpt Consult Level 2 Diagnoses Primary osteoarthritis of right knee M17.11 Paroxysmal atrial fibrillation I48.0 Lung disease, restrictive J98.4 Chronic GERD K21.9 Hypothyroid E03.9
[2020-12-30] MEDS ORDERED: SENNA 8.6 MG TAB PO SCH (21:00)
[2020-12-30] MEDS: DOCUSATE SODIUM 100 MG CAP PO SCH (21:35)
[2020-12-30] MEDS: METOPROLOL TARTRATE 25 MG TAB PO SCH (21:36)
[2020-12-30] MEDS: CALCIUM CARBONATE 1250MG TAB PO SCH (21:37)
[2020-12-31] MEDS: ACETAMINOPHEN 500 MG TAB PO SCH (05:03)
[2020-12-31 06:28] LABS: Hematocrit (blood only) 30.7 % (37-47); Hemoglobin 10.5 g/dL (12.0-16.0); Mean Corpuscular Hemoglobin 32.4 pg (25-34); Mean Corpuscular Hgb Conc 34.2 g/dL (32-36); Mean Corpuscular Volume 94.8 fL (80-100); Mean Platelet Volume 9.7 fL (7.4-10.4); Platelet Count 249 K/uL (130-400); RDW Standard Deviation 41.2 fL (36.4-46.3); Red Blood Count 3.24 M/uL (4.2-5.4); White Blood Count 10.09 K/uL (4.8-10.8)
[2020-12-31] MEDS ORDERED: LEVOTHYROXINE SODIUM 88 MCG TABLET PO SCH (06:30)
[2020-12-31 07:01] LABS: BUN Creatinine Ratio 31.2 (10-20); Calcium 8.3 mg/dl (8.5-10.1); Est GFR (African American) 103.7; Est GFR (Non-African American) 89.5; Potassium 3.9 mmol/L (3.5-5.1)
--- NOTE | 2020-12-31 07:25 | Orthopedic Progress Note ---
Date of Service December 31, 2020 Assessment & Plan (1) Primary osteoarthritis of right knee: POD#1 Right TKA -PT/OT -DVT prophylaxis-SCDs, TEDs, Eliquis BID resume home dosing -Pain management -AM labs-hemoglobin at 10.5 acute blood loss anemia due to surgical loss vs dilutional effect -D/C planning-home with home health likely later today if PT goes well. Admission and Anticipated Discharge Date Admission Date: December 30, 2020 Subjective Patient is POD#1 right TKA. She is doing well, pain well controlled. No complaints. Denies chest pain, sob, dizziness, light headedness, n/v/d Review of Systems Review of Systems: All systems reviewed & are unremarkable except as noted in HPI & below Physical Exam Physical Exam: Right knee-dressing is c/d/i, hemovac in place, CLAIRE suctioning. Toes are mobile with good dorsiflexion, no calf tenderness. Distally n/v status and sensation intact. Constitutional: well developed and well nourished; no acute distress Results & Data ([facility]) Vital Signs (Past 12 Hours) Vital Signs Temp Pulse Resp BP BP Pulse Ox 12/31/20 07:12 36.9 C 69 16 121/72 96 12/31/20 03:36 36.6 C 68 16 118/69 96 12/30/20 22:43 36.4 C L 65 16 144/86 H 97 12/30/20 21:34 61 134/81
[2020-12-31] MEDS ORDERED: APIXABAN 5 MG TABLET PO SCH (09:00)
[2020-12-31] MEDS ORDERED: PANTOprazole 40 MG TAB PO SCH (09:00)
[2020-12-31] MEDS ORDERED: CITALOPRAM 20 MG TAB PO SCH (09:00)
[2020-12-31] MEDS ORDERED: MULTIVITAMIN TAB PO SCH ×2 (09:00)
[2020-12-31] MEDS ORDERED: FEXOFENADINE HCL 180 MG TAB PO SCH (09:00)
[2020-12-31] MEDS ORDERED: hydroCHLOROthiazide 25 MG TAB PO SCH (09:00)
[2020-12-31] MEDS ORDERED: NON-FORMULARY MEDICATION (Pumpkin Seed Extract-Soy Germ [Azo Bladder Control] 300 mg Capsu PO SCH (09:00)
[2020-12-31] MEDS: DOCUSATE SODIUM 100 MG CAP PO SCH (10:02)
[2020-12-31] MEDS: CALCIUM CARBONATE 1250MG TAB PO SCH (10:02)
[2020-12-31] MEDS: METOPROLOL TARTRATE 25 MG TAB PO SCH (10:02)
--- NOTE | 2021-01-01 10:07 | Discharge Summary ---
Date of Service January 01, 2021 Admission HPI Per Admitting Provider Patient with PMHx significant for A-fib, DHAVAL, hypothyroidism, GERD, colon Ca presents with longstanding right knee pain. She has previous left knee replacement which has done well. She has failed conservative measures including cortisone injections and viscoleastic injections. She would like to proceed with right TKA. Patient denies headaches, sweats, fevers, chills, double vision, blurred vision, cough, sore throat, dysphagia, chest pain, sob, wheezing, n/v/d/c, numbness, tingling, fatigue, urinary symptoms, mood disorders. ROS positive for right knee pain and stiffness. Admission Exam Per Admitting Provider Constitutional: well developed and well nourished; no acute distress Eyes: PERRL, conjunctivae normal, anicteric sclerae ENMT: external ear and nose normal, oropharynx normal Neck: trachea midline, no thyromegaly Respiratory: normal respiratory effort, lungs clear to auscultation Cardiovascular: RRR, no murmur, no edema Musculoskeletal: Right knee: Mild effusion, tenderness lateral joint line. Valgus alignment. ROM 5-120 degrees. stable to valgus and varus stress. Positive Keyon's Skin: no rashes, warm and dry Neurologic: patellar DTR's 2+ bilat, sensation intact Psychiatric: A+Ox3, euthymic affect Principal Diagnosis Right knee osteoarthritis Discharge Exam Constitutional well developed and well nourished; no acute distress Eyes PERRL, conjunctivae normal, anicteric sclerae ENMT external ear and nose normal, oropharynx normal Neck trachea midline, no thyromegaly Respiratory normal respiratory effort, lungs clear to auscultation Cardiovascular RRR, no murmur, no edema Skin no rashes, warm and dry Neurologic patellar DTR's 2+ bilat, sensation intact Psychiatric A+Ox3, euthymic affect Discharge Data Allergies Allergy/AdvReac Type Severity Reaction Status Date / Time azithromycin Allergy Intermediate Hives Verified 12/30/20 05:36 Bactrim Allergy Intermediate HIVES Verified 02/19/18 10:25 cefuroxime Allergy Intermediate Hives Verified 12/30/20 05:36 cephalexin Allergy Intermediate Hives Verified 12/30/20 05:36 clarithromycin Allergy Intermediate Hives Verified 12/30/20 05:36 oxaprozin Allergy Intermediate Hives Verified 12/30/20 05:36 sulfamethoxazole Allergy Intermediate Hives Verified 12/30/20 05:36 trimethoprim Allergy Intermediate Hives Verified 12/30/20 05:36 trovafloxacin Allergy Intermediate Hives Verified 12/30/20 05:36 albuterol Allergy Unknown Rash Verified 12/30/20 05:36 sterapred Allergy Unknown Unknown Uncoded 12/30/20 05:36 Consultations 12/27/20 13:06 Consult Hospitalist Routine 12/30/20 11:01 Consult Case Management - Discharge Planning Routine Procedures Performed Operation Date: 12/30/20 07:15 Actual Procedures p Right Total Knee Arthroplasty(Right) - Rigo Delacruz MD Ordered Studies 12/30/20 05:00 US - OR guided needle placemen Routine Hospital Course (1) Primary osteoarthritis of right knee: Patient presented for same day admission following right total knee arthroplasty on 12/30/20. She tolerated procedure well. The Patient had an uneventful hospital course. Post-operatively, her activity was progressed and well tolerated. They participated in PT with ambulation distance of 300 feet. ROM of operative knee reached 85 degrees. Labs remained stable- lowest hemoglobin recorded: 10.5. Dr. Carnes of medical service was consulted for medical management during admission. Pain controlled on oral medications. Please refer to daily progress notes and PT notes for complete details. After exam on 12/31/20, patient was felt to be stable for discharge home with HHPT. Patient will f/u in the office in about 2 weeks for further evaluation including x-rays and incision check, sooner if having any issues or concerns. POD#1 Right TKA -PT/OT -DVT prophylaxis-SCDs, TEDs, Eliquis BID resume home dosing -Pain management -AM labs-hemoglobin at 10.5 acute blood loss anemia due to surgical loss vs dilutional effect -D/C planning-home with home health likely later today if PT goes well. Lab Results 11/30/20 12/31/20 12/31/20 Range/Units 13:36 05:50 05:50 WBC 10.09 (4.8-10.8) K/uL RBC 3.24 L (4.2-5.4) M/uL Hgb 10.5 L (12.0-16.0) g/dL Hct 30.7 L (37-47) % MCV 94.8 (80-100) fL MCH 32.4 (25-34) pg MCHC 34.2 (32-36) g/dL RDW Std Deviation 41.2 (36.4-46.3) fL RDW Coeff of Nidhi 12.0 (11.5-14.5) % Plt Count 249 (130-400) K/uL MPV 9.7 (7.4-10.4) fL Sodium 136 (136-145) mmol/L Potassium 3.9 (3.5-5.1) mmol/L Chloride 104 (98-107) mmol/L Carbon Dioxide 27 (21-32) mmol/L Anion Gap 5.0 (3-11) BUN 21 H (7-18) mg/dl Creatinine 0.66 (0.6-1.2) mg/dl Est Cr Clr Drug Dosing 79.0 ml/min Est GFR ( Amer) 103.7 Est GFR (Non-Af Amer) 89.5 BUN/Creatinine Ratio 31.2 H (10-20) Glucose 104 H (70-99) mg/dl Calcium 8.3 L (8.5-10.1) mg/dl Blood Type A Positive Antibody Screen NEGATIVE Total Time Total Time Spent Total Time Spent (In Minutes): 20 Discharge Plan Discharge Items Patient Disposition: Home - Home Health Services Reason For Visit: Unilateral Primary Osteoarthritis Knee Right Discharge Diagnosis: Right knee osteoarthritis Activity: Per Instructions section Non-emergency contact: Surgeon Call non-emergency contact if: you have any medication questions, your symptoms worsen, your pain is not controlled, your pain is unusual for you, your pain is concerning for you, you have a fever, your temperature is above 101, your wound has increased redness, your wound has increased drainage and your wound pain has increased Follow-up/Referrals: Omayra Lane MD [Primary Care Provider] - Diet: Regular Addtl Attending Provider Instructions: ACTIVITY RECOMMENDATIONS: SELF CARE INSTRUCTIONS AFTER TOTAL KNEE REPLACEMENT A. You may need to continue a physical therapy program after discharge from the hospital. There are several options available to you. Your doctor will assist you in selecting the best one for you. 1. An out-patient facility 2 to 3 times a week for therapy or home therapy. 2. Continue working on all exercises taught to you in the hospital. Your goals should be to increase bending of your knee to 90 degrees and beyond and to fully straighten your knee. B. You may progress at your own pace from walking with a walker or crutches to a cane; then to no assistive devices. C. Make walking a part of your daily routine. Be up as much as comfortable with rest periods throughout the day. Rest with leg elevation is very important. Use the ice wrap frequently for the first 3-4 weeks. D. There are no restrictions on activities. You may ride in a car, shop, participate in draft roller picker and all social activities. E. Wear the long elastic stockings (LENCHO hose) 20 hours a day for 2 weeks after surgery. They can be removed several times a day for laundering and for a bath. F. You may shower, no tub baths until cleared by your doctor. SPECIAL CARE INSTRUCTIONS: VERY IMPORTANT TO READ AND REVIEW A. There are a few signs you need to watch for after you are home. Call [facility] if you notice any of the followin. Increased severe knee pain. Some pain is expected especially when you exercise. 2. Increased swelling in your leg or knee; pain or swelling of the calf muscle in either lower leg. 3. Any fluid drainage from the incision. 4. Shortness of breath or chest pain. B. Please call [facility] at if you have any concerns or questions about your operation or recovery. The doctor or his nurse will return your call promptly. C. You must take antibiotics before dental work, bladder, bowel or other rosendo lidia. Your doctor will provide you with a permanent care to carry describing this precaution. IMPORTANT: * REMEMBER TO TAKE ASPIRIN, 81 MG, TWICE DAILY FOR 4 WEEKS UNLESS OTHERWISE DIRECTED. THIS IS YOUR BLOOD THINNER. * HIGH RISK PATIENTS MAY BE PRESCRIBED A STRONGER BLOOD THINNER. THIS WILL BE PROVIDED AT DISCHARGE. * CALL IF INCREASED PAIN, REDNESS, DRAINAGE OR FEVER GREATER THAT 101. * WEAR LENCHO HOSE 20 HOURS PER DAY FOR 2 WEEKS. This is a large suction dressing covering your incision. This will help pull any excess drainage from the wound and allow your incision to heal properly. You may shower with this if you can keep the unit outside of the shower. If any bleeding or leakage is noted please call your doctor's office. This will remain on your incision for 7 days and then should be removed. This can be done yourself or by the home nursing staff if applicable. The entire unit is disposable once removed. Once removed, keep incision clean and dry. If redness or drainage is noted, please call your surgeon. . FOLLOW UP VISIT: If appointment is not already scheduled: Please call [facility] to make a follow-up appointment for 2 weeks after your surgery at . Stand-Alone Forms: My [facility], Opioid Pain Management, Smoking Cessation Medications and DC Order Prescriptions: New acetaminophen 500 mg Tablet 1,000 mg PO Q8 Qty: 60 RF: 0 oxycodone 5 mg Tablet 5 - 10 mg PO .Q4h-6h MDD 6 PRN (Reason: pain) Qty: 30 RF: 0 Continued Eliquis 5 mg tablet 5 mg PO BID Qty: 180 RF: 3 calcium carbonate [Calcium 600] 600 mg calcium (1,500 mg) tablet 600 mg PO BID Qty: 180 RF: 3 metoprolol tartrate 25 mg tablet 25 mg PO BID Qty: 180 RF: 3 Echinacea and Goldenseal 450 mg capsule 450 mg PO BID RF: 0 citalopram 10 mg tablet 10 mg PO QAM RF: 0 hydrochlorothiazide 25 mg tablet 25 mg PO QAM RF: 0 levothyroxine 88 mcg tablet 88 mcg PO QAM RF: 0 omeprazole 20 mg tablet,delayed release (DR/EC) 20 mg PO QAM RF: 0 multivitamin Tablet 1 tab PO QAM RF: 0 omega-3 fatty acids [Fish Oil Concentrate] 1,000 mg capsule 1,000 mg PO QAM RF: 0 Azo Bladder Control 300 mg Capsule 1 cap PO QAM RF: 0 flaxseed oil 1,000 mg Capsule 1,000 mg PO QPM RF: 0 fexofenadine 180 mg Tablet 180 mg PO QAM RF: 0 Discontinued acetaminophen [Tylenol Extra Strength] 500 mg Capsule 1,000 mg PO BID RF: 0 Discharge Orders: Discharge Order (Routine); Ordered 12/31/20 Ordered By: Ezekiel Trent/Other Patient Handouts: DVT Post Op Prevention Admission Data Admit Date/Time: 12/30/20 09:47 Attending Provider: Rigo Delacruz Admit Provider: Rigo Delacruz Primary Care Provider: Omayra Lane Other Providers: Dann Trotter Other Interventions: Discharge Summary Assessment (RN) Last Done: 12/31/20 11:42
== END 2020-12-31 12:45 | disposition home health service (06) ==
LOC: 3N 05:03 → ASU 05:03